=== PATIENT | female | born 1950 | race Caucasian/White ===

== ENCOUNTER 2020-07-22 07:20 | Outpatient (REF) | payer BC, SELFPAY ==
[2020-07-22 10:28] LABS: MANUAL DIFF FLAG NO
[2020-07-22 10:31] LABS: Basophils Percent Auto 0.9 % (0-2); Eosinophils Absolute Auto 0.1 X10*3/uL (0.0-0.4); Eosinophils Percent Auto 1.4 % (0-4); Hematocrit 39.1 % (37-47); Hemoglobin 12.5 g/dl (12.0-16.0); Lymphocytes Absolute Auto 1.4 X10*3/uL (1.2-4.9); Mean Corpuscular Hemoglobin 30.1 pg (27.0-33.0); Mean Corpuscular Volume 94.2 fL (80-98); Mean Platelet Volume 11.1 fL (9.4-12.3); Monocytes Absolute Auto 0.3 X10*3/uL (0.1-1.2); Monocytes Percent Auto 6.9 % (2-11); Neutrophils Absolute Auto 2.5 X10*3/uL (2.0-8.3); Neutrophils Percent Auto 57.8 % (45-73); Platelet Count 147 X10*3/uL (160-400); Red Blood Count 4.15 X10*6/uL (4.20-5.50); Red Cell Distribution Width 13.1 % (11.0-16.0); White Blood Count 4.4 X10*3/uL (4.8-10.8)
[2020-07-22 10:54] LABS: Appearance Urine CLEAR; Color Urine YELLOW; Glucose Urine UA NEG (NEG); Leukocyte Esterase Urine 1+ (NEG); Nitrite Urine NEG (NEG); Urine Blood TRACE (NEG); Urine Ketones NEG (NEG); Urine Protein NEG (NEG-TRACE)
[2020-07-22 11:01] LABS: Mucus Urine 1+ /LPF; Squamous Epithelial Cell Urine 1+ /LPF
[2020-07-22 11:22] LABS: Alanine Aminotransferase 14 U/L (0-31); Albumin Level 4.5 g/dL (3.5-5.0); Alkaline Phosphatase 91 U/L (39-117); Anion Gap 8 (12-20); Aspartate Amino Transferase 18 U/L (5-31); Bilirubin Total 0.5 mg/dL (0.0-1.0); Blood Urea Nitrogen 21 mg/dL (9-16); Calcium 9.3 mg/dL (8.4-10.2); Carbon Dioxide 30 mmol/L (22-29); Chloride 108 mmol/L (96-108); Cholesterol 197 mg/dL; Estimated Glomerular Filt Rate 58; Glucose Fasting 92 mg/dL (60-99); HDL Cholesterol 68 mg/dL; LDL Cholesterol Calculated 114 mg/dl; Potassium 4.4 mmol/l (3.3-5.1); Sodium 142 mmol/L (135-145); Total Protein 6.7 g/dL (6.5-8.0); Triglycerides 75 mg/dL
[2020-07-22 11:45] LABS: Thyroid Stimulating Hormone 0.94 mIU/mL (0.32-4.0); Vitamin D 25-OH Total 46.4 ng/mL (>30)
[2020-07-22 11:48] LABS: Vitamin B12 > 2000 pg/mL (200-900)
== END 2020-07-22 07:21 | disposition home or self-care (01) ==
LOC: HO.WFDLDS 07:20
PROVIDERS: PCP Internal Medicine; Visit Provider Internal Medicine
DX: E78.00 Pure hypercholesterolemia, unspecified (principal); D69.6 Thrombocytopenia, unspecified
CPT/HCPCS: 36415; 80053; 80061; 81001; 82306; 82607; 82746; 84436; 84443; 85025

== ENCOUNTER 2021-07-17 07:01 | Outpatient (REF) | payer MEDICARE, SELFPAY ==
[2021-07-17 10:34] LABS: MANUAL DIFF FLAG NO
[2021-07-17 10:44] LABS: Basophils Percent Auto 0.7 % (0-2); Eosinophils Absolute Auto 0.1 X10*3/uL (0.0-0.4); Eosinophils Percent Auto 2.2 % (0-4); Hematocrit 39.3 % (37-47); Hemoglobin 12.5 g/dl (12.0-16.0); Imm Gran Abs Auto 0.01 X10*3/uL (0.00-0.03); Imm Gran Pct Auto 0.2 % (0.0-0.4); Lymphocytes Absolute Auto 1.3 X10*3/uL (1.2-4.9); Lymphocytes Percent Auto 28.2 % (20-40); Mean Corpuscular HGB Conc 31.8 g/dl (31.0-35.0); Mean Corpuscular Hemoglobin 29.7 pg (27.0-33.0); Mean Corpuscular Volume 93.3 fL (80-98); Mean Platelet Volume 10.7 fL (9.4-12.3); Monocytes Absolute Auto 0.4 X10*3/uL (0.1-1.2); Monocytes Percent Auto 8.5 % (2-11); Neutrophils Absolute Auto 2.8 X10*3/uL (2.0-8.3); Neutrophils Percent Auto 60.2 % (45-73); Platelet Count 162 X10*3/uL (160-400); Red Blood Count 4.21 X10*6/uL (4.20-5.50); Red Cell Distribution Width 13.1 % (11.0-16.0); White Blood Count 4.6 X10*3/uL (4.8-10.8)
[2021-07-17 10:58] LABS: Alanine Aminotransferase 13 U/L (0-31); Albumin Level 4.4 g/dL (3.5-5.0); Alkaline Phosphatase 88 U/L (39-117); Anion Gap 12 (12-20); Aspartate Amino Transferase 17 U/L (5-31); Bilirubin Total 0.6 mg/dL (0.0-1.0); Blood Urea Nitrogen 15 mg/dL (9-16); Calcium 9.8 mg/dL (8.4-10.2); Carbon Dioxide 28 mmol/L (22-29); Chloride 108 mmol/L (96-108); Cholesterol 201 mg/dL; Estimated Glomerular Filt Rate > 60; Glucose Random 93 mg/dL (60-115); HDL Cholesterol 77 mg/dL; LDL Cholesterol Calculated 112 mg/dl; Potassium 4.7 mmol/L (3.3-5.1); Sodium 143 mmol/L (135-145); Total Protein 6.7 g/dL (6.5-8.0); Triglycerides 63 mg/dL
[2021-07-17 11:19] LABS: Free T4 (Free Thyroxine) 1.03 ng/dL (0.71-1.85); Thyroid Stimulating Hormone 1.29 uIU/mL (0.32-4.0); Vitamin D 25-OH Total 45.2 ng/mL (>30)
[2021-07-17 11:32] LABS: Folate > 20.0 ng/mL (> or = 4.0); Vitamin B12 1855 pg/mL (200-900)
== END 2021-07-17 07:02 | disposition home or self-care (01) ==
LOC: HO.WFDLDS 07:01
PROVIDERS: Visit Provider Internal Medicine
DX: E78.00 Pure hypercholesterolemia, unspecified (principal)
CPT/HCPCS: 36415; 80053; 80061; 82306; 82607; 82746; 84439; 84443; 85025

== ENCOUNTER 2021-10-28 12:56 | Outpatient (REF) | payer BC, SELFPAY ==
--- NOTE | ~2021-10-28 | MM_ITS ---
EXAMINATION: MM SCREENING DIGITAL BREAST TOMOSYNTHESIS, BILATERAL CLINICAL INFORMATION: Screening. Asymptomatic. The lifetime risk of breast cancer based on the Tyrer-Cuzick Model is 5%. COMPARISON: Mammography: 08/08/2019, 02/11/2017, 01/09/2016 TECHNIQUE: Digital breast tomosynthesis is performed in both the craniocaudal and mediolateral oblique views along with computer-aided detection (CAD). Synthesized 2D images are generated from the tomosynthesis. FINDINGS: The breasts are heterogeneously dense, which may obscure small masses (ACR BI-RADS breast composition Category c). There are no significant masses, abnormal calcifications, or other abnormalities. There is fine fibronodular parenchymal pattern similar to prior studies. No developing density or interval mass or architectural abnormality. The axilla and skin contours are unremarkable. MM/MM tomosynthesis screening BI IMPRESSION: No mammographic evidence of malignancy. ASSESSMENT: BI-RADS 1: Negative RECOMMENDATION: Routine annual mammography screening. This patient's information was entered into a reminder system with a target due date for their next mammogram.
--- NOTE | ~2021-10-28 | MM_ITS ---
EXAMINATION: BONE DENSITOMETRY CLINICAL INDICATION: Screening for osteoporosis. COMPARISON: Previous BD dated 08/08/2019 and baseline BD dated 08/09/2014. TECHNIQUE: Using a [employer] DXA System (software version: 13.1) manufactured by [employer], dual-energy x-ray absorptiometry was performed of the lumbar spine and left hip. The images are of good technical quality. Summary results are attached. FINDINGS: AP SPINE L1-L4: Current: BMD 1.077 g/cm2, Z-score 0.2, T-score -0.9, normal, 1.0% increase from previous, 6.0% increase from baseline (<5% change is not significant). Prior: BMD 1.066 g/cm2. Baseline: BMD 1.016 g/cm2. LEFT FEMUR, NECK: Current: BMD 0.828 g/cm2, Z-score -0.2, T-score -1.5, osteopenia. Prior: BMD 0.757 g/cm2. Baseline: BMD 0.728 g/cm2. LEFT FEMUR, TOTAL: Current: BMD 0.929 g/cm2, Z-score 0.4, T-score -0.6, normal, 7.8% increase from previous, 14.3% increase from baseline (<5% change is not significant). Prior: BMD 0.862 g/cm2. Baseline: BMD 0.813 g/cm2. IDENTIFIED RISK FACTORS: Menopause, height loss, history of fracture (adult), low calcium intake. HISTORY OF FRACTURE: Elbow, ribs. MEDICATIONS: Vitamin D. MM/XR DEXA axial skeleton IMPRESSION: 1. DIAGNOSIS: Osteopenia based on the lowest T-score value of -1.5 in the femoral neck applying World Health Organization criteria. 2. 10-YEAR FRACTURE RISK PREDICTION, FRAX: Major osteoporotic fracture (clinical spine, forearm, hip or shoulder) 15.7%. Hip fracture 2.3%. 3. Treatment Recommendations: NOF guidelines recommend consideration for treatment in postmenopausal women and men age 50 and older presenting with the following: -A hip or vertebral (clinical or morphometric) fracture. -T-score less than or equal to -2.5 at the femoral neck or spine after appropriate evaluation to exclude secondary causes. -Low bone mass at the hip or spine and a 10-year fracture probability by FRAX of greater than or equal to 3% for hip fracture or greater than or equal to 20% for major osteoporotic fracture based on the [place] adapted WHO algorithm. 4. Other Recommendations: All treatment decisions require clinical judgment and consideration of individual patient factors, including patient preferences, comorbidities, previous drug use, risk factors not captured in the FRAX model (e.g. frailty, falls, vitamin D deficiency, increased bone turnover, interval significant decline in bone density) and possible under or overestimation of fracture risk by FRAX. Additional medical evaluation for secondary cause of low bone mineral density may be appropriate. FUTURE SCAN RECOMMENDATION: People with diagnosed cases of osteoporosis or at high risk for fracture should have regular bone mineral density tests. For patients eligible for Medicare, routine testing is allowed once every 2 years. The testing frequency can be increased to one year for patients who have rapidly progressing disease, those who are receiving or discontinuing medical therapy to restore bone mass, or have additional risk factors.
== END 2021-10-28 12:57 | disposition home or self-care (01) ==
LOC: HO.MAMMO 12:56
PROVIDERS: PCP Internal Medicine; Visit Provider Nurse Practitioner Family
DX: Z12.31 Encounter for screening mammogram for malignant neoplasm of breast (principal); Z13.820 Encounter for screening for osteoporosis; M85.80 Other specified disorders of bone density and structure, unspecified site; Z78.0 Asymptomatic menopausal state; Z87.81 Personal history of (healed) traumatic fracture; Z79.899 Other long term (current) drug therapy
CPT/HCPCS: 77063; 77067; 77080

== ENCOUNTER 2021-12-17 13:59 | Outpatient (REF) | payer BC, SELFPAY ==
--- NOTE | ~2021-12-17 | XR_ITS ---
EXAMINATION: XR KNEE, RIGHT CLINICAL INFORMATION: Right knee pain COMPARISON: None TECHNIQUE: Four views of the right knee. FINDINGS: There is no evidence of acute fracture or dislocation of the left knee there is noted to be prominent spurring about the patellofemoral joint with probable narrowing of the joint to some degree. There is a small right knee effusion. The medial and lateral joint space compartments are maintained with some marginal spurring about the medial joint space compartment. XR/XR knee RT 4V IMPRESSION: No acute fracture or dislocation of the right knee. Patellofemoral joint degenerative change with right knee effusion.
== END 2021-12-17 14:00 | disposition home or self-care (01) ==
LOC: HO.HMGCX 13:59
PROVIDERS: Visit Provider Internal Medicine
DX: M25.561 Pain in right knee (principal)
CPT/HCPCS: 73564

== ENCOUNTER 2021-12-25 09:37 | Outpatient (REF) | payer BC, SELFPAY ==
--- NOTE | ~2021-12-25 | XR_ITS ---
EXAMINATION: RIGHT KNEE 2 VIEWS. BILATERAL STANDING KNEE. CLINICAL INFORMATION: This is a 71-year-old female with right knee pain. COMPARISON: Comparison is made to a previous study dated 12/17/2021. TECHNIQUE: 2 views of the right knee are provided for evaluation. A standing bilateral views also provided. FINDINGS: Serpiginous soft tissue densities are noted within the subcutaneous tissues which likely represents varicose veins. There is joint space narrowing, subchondral sclerosis and osteophyte formation involving the medial femoral-tibial joint space, patellofemoral joint, tibiofibular joint. Again noted is a small right knee effusion. Osteoarthritic changes are noted in the medial femoral-tibial joint space on the left. XR/XR knee standing BI IMPRESSION: 1. There is tricompartmental mild osteoarthritic change with a small suprapatellar joint effusion within the right knee.
--- NOTE | ~2021-12-25 | XR_ITS ---
EXAMINATION: RIGHT KNEE 2 VIEWS. BILATERAL STANDING KNEE. CLINICAL INFORMATION: This is a 71-year-old female with right knee pain. COMPARISON: Comparison is made to a previous study dated 12/17/2021. TECHNIQUE: 2 views of the right knee are provided for evaluation. A standing bilateral views also provided. FINDINGS: Serpiginous soft tissue densities are noted within the subcutaneous tissues which likely represents varicose veins. There is joint space narrowing, subchondral sclerosis and osteophyte formation involving the medial femoral-tibial joint space, patellofemoral joint, tibiofibular joint. Again noted is a small right knee effusion. Osteoarthritic changes are noted in the medial femoral-tibial joint space on the left. XR/XR knee RT 2V IMPRESSION: 1. There is tricompartmental mild osteoarthritic change with a small suprapatellar joint effusion within the right knee.
== END 2021-12-25 09:38 | disposition home or self-care (01) ==
LOC: HO.HOSX 09:37
PROVIDERS: Visit Provider Orthopaedic Surgery
DX: M17.11 Unilateral primary osteoarthritis, right knee (principal)
CPT/HCPCS: 20610; 73560; 73565; J1100

== ENCOUNTER → 2022-04-01 13:29 | Outpatient (BNVA) | payer BC, SELFPAY | PROVIDERS: PCP Internal Medicine; Visit Provider Orthopaedic Surgery | DX: M17.11 Unilateral primary osteoarthritis, right knee (principal) | CPT/HCPCS: 20610; J1100 ==

== ENCOUNTER → 2022-07-02 11:41 | Outpatient (BNVA) | payer BC, SELFPAY | PROVIDERS: PCP Internal Medicine; Visit Provider Orthopaedic Surgery | DX: M17.11 Unilateral primary osteoarthritis, right knee (principal) | CPT/HCPCS: 20610; J1100 ==

== ENCOUNTER 2022-07-27 08:37 | Day surgery (SDC) | payer MEDICARE, SELFPAY ==
[2022-07-22 09:45] VITALS: BMI 27.5
--- NOTE | 2022-07-23 10:23 | P.CONAN_ITS ---
Documented by User: Sofia Dutta NP 07/23/22 10:26 HPI - Anesthesia Eval Consult details Narrative: 72yo F for Colonoscopy PMFSH Active Problems Active Problems: All Active Problems (Updated 06/09/22 @ 11:26 by Renata Morrison MD) Chronic heel pain (Acute) Positive colorectal cancer screening using Cologuard test (Acute) Localized osteoarthritis of right knee (Acute) Osteopenia (Acute) Encounter for Medicare annual wellness exam (Acute ~09/07/21) Hypercholesterolemia (Acute) GERD (gastroesophageal reflux disease) (Acute) Osteoarthritis (Acute) Past Medical History Medical History Collagen vascular disease Colon cancer screening Colonoscopy refused GERD (gastroesophageal reflux disease) Knee pain, right Leukopenia Myxomatous mitral valve Osteoarthritis Plantar fascia syndrome Right hand paresthesia Shingles Thrombocytopenia Ulnar nerve palsy Family History Family History Father Emphysema of lung Diabetes Mother Hypertension CVD (cardiovascular disease) Maternal Grandfather Esophageal cancer Maternal Uncle Esophageal cancer Lung cancer Sister No problems noted. Surgical History Surgical History Deficient knowledge of leg surgery History of appendectomy History of cataract surgery History of thoracotomy History of tonsillectomy History of tubal ligation Hx of colonoscopy Hx of esophagogastroduodenoscopy Social History Social History Housing: House Alcohol intake: current Alcohol intake frequency: holidays/special occasions only Alcohol type: wine Patient Tobacco Use Status: Never used Tobacco e-Cigarette/Vaping Use: Never Used Second Hand Smoke Exposure: No Use of substances other than those prescribed or required for medical reasons: No Are you DNR?: No Advance Directives: No Advance Directives Information Provided: Yes Advance Directives Date on File: 07/22/20 service: No Current occupational status: retired Cognitive needs: No Hearing needs: No Vision needs: No Meds Allergies Allergy/AdvReac Type Severity Reaction Status Date / Time aspirin Allergy Unknown Unknown Verified 07/02/22 11:54 latex Allergy Unknown Unknown Verified 07/02/22 11:54 milk Allergy Unknown Unknown Verified 07/02/22 11:54 Sulfa (Sulfonamide Allergy Unknown Unknown Verified 07/02/22 11:54 Antibiotics) Home Medications Medication Instructions Recorded Confirmed Last Taken Type meclizine 25 mg tablet 25 mg PO DAILY PRN Dizziness 10/07/20 07/27/22 Unknown History omeprazole 20 mg capsule,delayed 20 mg PO DAILY 10/07/20 07/27/22 Unknown History release ascorbic acid (vitamin C) 1,000 mg 1 g PO .other day 08/07/21 07/27/22 Unknown History tablet potassium gluconate 500 mg (83 mg) 500 mg PO .every other day 08/07/21 07/27/22 Unknown History tablet cholecalciferol (vitamin D3) 50 50 mcg PO DAILY 12/08/21 07/27/22 Unknown History mcg (2,000 unit) capsule Exam Exam Date and Time: July 23, 2022 1023 Height,Weight and Vital Signs: Height 5 ft 8 in Weight 82.1 kg Assessment and Plan Assessment Anesthesia Assessment: Chart Reviewed Documented by User: Sunita Barahona MD 07/27/22 08:56 [facility] Past Medical History Medical History Collagen vascular disease Colon cancer screening Colonoscopy refused GERD (gastroesophageal reflux disease) Knee pain, right Leukopenia Myxomatous mitral valve Osteoarthritis Plantar fascia syndrome Right hand paresthesia Shingles Thrombocytopenia Ulnar nerve palsy Functional capacity: independent ambulation Patient : No Family History Family History Father Emphysema of lung Diabetes Mother Hypertension CVD (cardiovascular disease) Maternal Grandfather Esophageal cancer Maternal Uncle Esophageal cancer Lung cancer Sister No problems noted. Family history of problems with anesthesia: No Surgical History Surgical History Deficient knowledge of leg surgery History of appendectomy History of cataract surgery History of thoracotomy History of tonsillectomy History of tubal ligation Hx of colonoscopy Hx of esophagogastroduodenoscopy History of Problems with Anesthesia: No Social History Social History Housing: House Alcohol intake: current Alcohol intake frequency: holidays/special occasions only Alcohol type: wine Patient Tobacco Use Status: Never used Tobacco e-Cigarette/Vaping Use: Never Used Second Hand Smoke Exposure: No Use of substances other than those prescribed or required for medical reasons: No Are you DNR?: No Advance Directives: No Advance Directives Information Provided: Yes Advance Directives Date on File: 07/22/20 service: No Current occupational status: retired Cognitive needs: No Hearing needs: No Vision needs: No Meds Allergies Allergy/AdvReac Type Severity Reaction Status Date / Time aspirin Allergy Unknown Unknown Verified 07/02/22 11:54 latex Allergy Unknown Unknown Verified 07/02/22 11:54 milk Allergy Unknown Unknown Verified 07/02/22 11:54 Sulfa (Sulfonamide Allergy Unknown Unknown Verified 07/02/22 11:54 Antibiotics) Home Medications Medication Instructions Recorded Confirmed Last Taken Type meclizine 25 mg tablet 25 mg PO DAILY PRN Dizziness 10/07/20 07/27/22 Unknown History omeprazole 20 mg capsule,delayed 20 mg PO DAILY 10/07/20 07/27/22 Unknown History release ascorbic acid (vitamin C) 1,000 mg 1 g PO .other day 08/07/21 07/27/22 Unknown History tablet potassium gluconate 500 mg (83 mg) 500 mg PO .every other day 08/07/21 07/27/22 Unknown History tablet cholecalciferol (vitamin D3) 50 50 mcg PO DAILY 12/08/21 07/27/22 Unknown History mcg (2,000 unit) capsule Exam Airway Mallampati Class: II TM Dist: >3cm Neck ROM: Full Heart: RRR Lungs: CTA Assessment and Plan Final Anesthetic Review Family History of Problems with Anesthesia: No History of Problems with Anesthesia: No ASA Class: II Final Preanesthetic Review: No Changes in Pt Med Stat, Meds/Allgs Chart Reviewed, Consent Obtained/Reviewed and Anes Risks/Benef Reviewed Patient Risk: Low Procedure Risk: Low Anesthetic Plan Anesthetic Plan: MAC: Disposition: Standard PACU
[2022-07-27 08:55] VITALS: BP 145/71; PULSE 71; RESP 15; TEMP 36.6; O2SAT 99
[2022-07-27] MEDS: Lactated Ringers 1,000 ML 100 ML IVCONT (10:13)
--- NOTE | 2022-07-27 10:29 | MHC.SHP ---
Pre-Procedural Eval Section A Date of Service: 07/27/22 Section B Chief Complaint: Other fecal abnormalities Details of Present Illness: see H&P no changes Relevant Family History (Specify if Yes): No Relevant Social History: None Present Medications: see Short Stay Collaborative assessment Medical History: No relevant PMH Allergies: Allergies Allergy/AdvReac Type Severity Reaction Status Date / Time aspirin Allergy Unknown Unknown Verified 07/02/22 11:54 latex Allergy Unknown Unknown Verified 07/02/22 11:54 milk Allergy Unknown Unknown Verified 07/02/22 11:54 Sulfa (Sulfonamide Allergy Unknown Unknown Verified 07/02/22 11:54 Antibiotics) Review of Systems Sugical H&P ROS: Negative: Constitution, Cardiovascular, Respiratory, Neurological, Psychiatric, Hem-Onc, Allergic/Immunologic, Gastrointestinal, Genitourinary, Musculoskeletal, Integumentary, Endocrine and Eyes/Ears/Nose/Throat Exam Surgical H&P Exam: Normal: HEENT, Normal: Heart, Normal: Lungs, Normal: Extremities, Normal: Abdomen, Normal: Skin and Normal: Neurological Plan Diagnosis/Plan: Unchanged I have reviewed the history and physical and performed a pertinent physical examination on my patient. No changes have occurred unless specified.
--- NOTE | 2022-07-27 10:55 | P.BOP_ITS ---
Brief Operative Note Date of Service: 07/27/22 Pre-op diagnosis: abnl findings in stool Post-op diagnosis: same Surgeon: Mukesh Pedersen Anesthesia: MAC Was an Director Of [employer] used for this Procedure?: No Estimated blood loss (mL): 0 Pathology: none sent Condition: stable Disposition: PACU
[2022-07-27 10:56] VITALS: BP 103/50; PULSE 76; RESP 16; TEMP 36.3; O2SAT 97
[2022-07-27 11:11] VITALS: BP 125/71; PULSE 63; RESP 18; O2SAT 97
--- NOTE | 2022-07-27 11:34 | HO.POSTANES ---
Post Anesthesia Evaluation Post Anesthesia Evaluation Vital Signs: Vital Signs Temp Pulse Resp BP Pulse Ox O2 Del Method 07/27/22 11:11 63 18 103/50 L 97 Room Air 07/27/22 10:56 97.3 F 76 16 103/50 L 97 Room Air 07/27/22 08:55 97.9 F 71 15 145/71 H 99 Room Air Anesthesia: Monitored Mental Status: Awake Pain Control: Satisfactory Nausea/Vomiting: None Hydration: Adequate Anesthesia-Related Issues: No Anes. Related Issues
--- NOTE | 2022-07-27 22:50 | OP_ITS ---
SURGEON: Mukesh Pedersen MD INDICATIONS: Abnormal findings in stool. PREOPERATIVE DIAGNOSIS: POSTOPERATIVE DIAGNOSIS: PROCEDURE PERFORMED: Colonoscopy to the terminal ileum. ESTIMATED BLOOD LOSS: COMPLICATIONS: ANESTHESIA: ASSISTANTS: SPECIMENS: MEDICATIONS: Monitored anesthesia care. DESCRIPTION OF PROCEDURE: History and physical was performed. The risks and benefits of the procedure were explained to the patient. Informed consent was obtained. The patient was placed in the left lateral decubitus position. A digital rectal exam was performed and was found to be normal. The Olympus pediatric video colonoscope was introduced into the rectum and advanced to the cecum without difficulty. The cecum was identified by transillumination, palpation, and identification of ileocecal valve. Examination was performed. The scope was removed. She tolerated the procedure well and was taken to recovery room in stable condition. The procedure was performed on 07/27/2022. FINDINGS: The terminal ileum was normal. The visualized colonic mucosa was normal. The quality of the prep was good. No polyps were identified. There were some moderately large internal hemorrhoids on retroflexed examination. IMPRESSION: Normal colonoscopy. RECOMMENDATION: 1. Follow up as needed. 2. Screening colonoscopy is not recommended based on age. MD MERLE Aguirre/MARGIE / [id number]
== END 2022-07-27 11:47 | disposition home or self-care (01) ==
PROVIDERS: PCP Internal Medicine; Visit Provider Internal Medicine Gastroenterology
PROC: 0DJD8ZZ Inspection of Lower Intestinal Tract, Via Natural or Artificial Opening Endoscopic (ICD-10-PCS; CPT 45378; principal; 2022-07-27 09:50)
DX: R19.5 Other fecal abnormalities (principal); K64.8 Other hemorrhoids; K58.1 Irritable bowel syndrome with constipation; K21.9 Gastro-esophageal reflux disease without esophagitis; J30.2 Other seasonal allergic rhinitis; R42 Dizziness and giddiness; M85.80 Other specified disorders of bone density and structure, unspecified site; Z79.899 Other long term (current) drug therapy; Z79.82 Long term (current) use of aspirin; Z79.1 Long term (current) use of non-steroidal anti-inflammatories (NSAID); Z91.040 Latex allergy status; Z88.2 Allergy status to sulfonamides
CPT/HCPCS: 45378

== ENCOUNTER 2022-09-28 08:21 | Outpatient (REF) | payer MEDICARE, SELFPAY ==
[2022-09-28 12:25] LABS: Leukocytes Stool Qualitative FEW: < 2/OIF (NEGATIVE)
[2022-09-28 13:01] LABS: CDiff Gene PCR NEGATIVE (Negative)
== END 2022-09-28 08:22 | disposition home or self-care (01) ==
LOC: HO.WFDLNP 08:21
PROVIDERS: Visit Provider Nurse Practitioner Family
DX: R19.7 Diarrhea, unspecified (principal)
CPT/HCPCS: 87177; 87209; 87493; 89055

== ENCOUNTER → 2022-10-01 11:27 | Outpatient (BNVA) | payer MEDICARE, SELFPAY | PROVIDERS: Visit Provider Orthopaedic Surgery | DX: M17.11 Unilateral primary osteoarthritis, right knee (principal) | CPT/HCPCS: 20610; 99212; J1100 ==

== ENCOUNTER 2022-11-24 08:00 | Outpatient (REF) | payer MEDICARE, SELFPAY ==
[2022-11-24 10:57] LABS: MANUAL DIFF FLAG NO
[2022-11-24 11:09] LABS: Basophils Percent Auto 0.9 % (0-2); Eosinophils Absolute Auto 0.1 X10*3/uL (0.0-0.4); Eosinophils Percent Auto 1.1 % (0-4); Hemoglobin 12.2 g/dl (12.0-16.0); Imm Gran Abs Auto 0.03 X10*3/uL (0.00-0.03); Imm Gran Pct Auto 0.7 % (0.0-0.4); Lymphocytes Absolute Auto 1.2 X10*3/uL (1.2-4.9); Lymphocytes Percent Auto 27.4 % (20-40); Mean Corpuscular HGB Conc 32.1 g/dl (31.0-35.0); Mean Corpuscular Hemoglobin 29.1 pg (27.0-33.0); Mean Corpuscular Volume 90.7 fL (80.0-98.0); Mean Platelet Volume 11.1 fL (9.4-12.3); Monocytes Absolute Auto 0.3 X10*3/uL (0.1-1.2); Monocytes Percent Auto 7.5 % (2-11); Neutrophils Absolute Auto 2.7 x10*3/uL (2.0-8.3); Neutrophils Percent Auto 62.4 % (45-73); Platelet Count 131 X10*3/uL (160-400); Red Blood Count 4.19 X10*6/uL (4.20-5.50); Red Cell Distribution Width 13.2 % (11.0-16.0); White Blood Count 4.4 X10*3/uL (4.8-10.8)
[2022-11-24 12:09] LABS: Alanine Aminotransferase 9 U/L (0-31); Albumin Level 4.2 g/dL (3.5-5.0); Alkaline Phosphatase 88 U/L (39-117); Anion Gap 15 (12-20); Aspartate Amino Transferase 16 U/L (5-31); Blood Urea Nitrogen 23 mg/dL (9-16); Calcium 9.8 mg/dL (8.4-10.2); Carbon Dioxide 25 mmol/L (22-29); Chloride 109 mmol/L (96-108); Cholesterol 179 mg/dL; Estimated Glomerular Filt Rate > 60; Glucose Random 81 mg/dL (60-115); HDL Cholesterol 66 mg/dL; LDL Cholesterol Calculated 99 mg/dl; Potassium 4.4 mmol/L (3.3-5.1); Sodium 145 mmol/L (135-145); Total Protein 6.3 g/dL (6.5-8.0); Triglycerides 74 mg/dL
[2022-11-24 13:00] LABS: Folate 9.2 ng/mL (> or = 4.0); Thyroid Stimulating Hormone 1.16 uIU/mL (0.32-4.0); Vitamin B12 474 pg/mL (200-900); Vitamin D 25-OH Total 44.8 ng/mL (>30)
[2022-11-24 14:31] LABS: Bilirubin Total 0.5 mg/dL (0.0-1.0)
== END 2022-11-24 08:01 | disposition home or self-care (01) ==
LOC: HO.WFDLDS 08:00
PROVIDERS: Visit Provider Internal Medicine
DX: E78.00 Pure hypercholesterolemia, unspecified (principal)
CPT/HCPCS: 36415; 80048; 80053; 80061; 82306; 82607; 82746; 84439; 84443; 85025

== ENCOUNTER 2022-11-25 16:48 | Outpatient (REF) | payer MEDICARE, SELFPAY | END 2022-11-25 16:49 | disposition home or self-care (01) | LOC: HO.LAB 16:48 | PROVIDERS: PCP Internal Medicine; Visit Provider Internal Medicine Gastroenterology | DX: Z13.89 Encounter for screening for other disorder (principal) ==

== ENCOUNTER 2022-11-28 14:30 | Outpatient (REF) | payer MEDICARE, SELFPAY | END 2022-11-28 14:31 | disposition home or self-care (01) | LOC: HO.LNP 14:30 | PROVIDERS: Visit Provider Internal Medicine Gastroenterology | DX: Z13.89 Encounter for screening for other disorder (principal) ==

== ENCOUNTER 2022-12-02 12:19 | Outpatient (REF) | payer MEDICARE, SELFPAY ==
[2022-12-02 14:36] LABS: Adenovirus F 40/41 Not Detected (Not Detect.); Astrovirus Not Detected (Not Detect.); Campylobacter Not Detected (Not Detect.); Cryptosporidium Not Detected (Not Detect.); Cyclospora cayetanensis Not Detected (Not Detect.); E. coli EAEC Not Detected (Not Detect.); E. coli EPEC Not Detected (Not Detect.); E. coli ETEC Not Detected (Not Detect.); E. coli STEC Not Detected (Not Detect.); Entamoeba histolytica Not Detected (Not Detect.); Giardia lamblia Not Detected (Not Detect.); Norovirus GI/GII Not Detected (Not Detect.); Plesiomonas shigelloides Not Detected (Not Detect.); Rotavirus A Not Detected (Not Detect.); Salmonella Not Detected (Not Detect.); Sapovirus Not Detected (Not Detect.); Shigella sp./EIEC Not Detected (Not Detect.); Vibrio Not Detected (Not Detect.); Vibrio Cholerae Not Detected (Not Detect.); Yersinia enterocolitica Not Detected (Not Detect.)
== END 2022-12-02 12:20 | disposition home or self-care (01) ==
LOC: HO.LNP 12:19
PROVIDERS: Visit Provider Internal Medicine Gastroenterology
DX: R19.5 Other fecal abnormalities (principal); R19.7 Diarrhea, unspecified
CPT/HCPCS: 87507

== ENCOUNTER → 2023-04-07 13:29 | Outpatient (BNVA) | payer MEDICARE, SELFPAY | PROVIDERS: PCP Internal Medicine; Visit Provider Orthopaedic Surgery | DX: M17.11 Unilateral primary osteoarthritis, right knee (principal) | CPT/HCPCS: 20610; 99212; J1100 ==

== ENCOUNTER 2023-06-16 15:32 | Outpatient (AMB) | payer MEDICARE, SELFPAY ==
[2023-06-16 15:38] VITALS: BP 138/60; PULSE 60; O2SAT 99; BMI 28.3
--- NOTE | 2023-06-16 15:38 | A.OFFPC_ITS ---
Vital Signs 06/16/23 15:38 Height 5 ft 8 in Weight 186 lb 4 oz BMI 28.3 BP 138/60 Blood Pressure Location Lt brachial Position Sitting Pulse 60 Pulse Source Pulse Oximeter Pulse Oximetry (%) 99 Oxygen Delivery Method Room Air Intake Visit Reasons: 6mth f/u ( meds ) Allergies aspirin Allergy (Unknown, Verified 06/16/23 15:42) Unknown latex Allergy (Unknown, Verified 06/16/23 15:42) Unknown milk Allergy (Unknown, Verified 06/16/23 15:42) Unknown Sulfa (Sulfonamide Antibiotics) Allergy (Unknown, Verified 06/16/23 15:42) Unknown Medication List - Last Reconciled 06/16/23 by Renata Morrison MD ascorbic acid (vitamin C) 1 g PO .other day celecoxib 200 mg PO DAILY cholecalciferol (vitamin D3) 50 mcg PO DAILY loperamide (Imodium A-D) 2 mg PO BID PRN loperamide (Imodium A-D) 2 mg PO Q6H PRN magnesium 200 mg PO DAILY meclizine 25 mg PO DAILY PRN omega-3 fatty acids 1,000 mg PO .Qw omeprazole 20 mg PO DAILY potassium gluconate 500 mg PO .every other day Tobacco use date assessed: 12/07/22 Fall risk assessment: 2 + Falls in past year Last assessed Fall Risk: 06/16/23 Dental Screening Dental Screen Date: 06/16/23 Did you have a dental visit in the last 12 months?: Yes Did you have a dental problem in the last 6 months where you did not have access to dental care?: No Was dental information given to patient?: Patient has dentist HPI 6mth f/u ( meds ) HPI Details 73-year-old overweight female with GERD hypercholesterolemia osteopenia right knee osteoarthritis peripheral vascular disease and irritable bowel syndrome last seen in November 2022 patient is here for follow-up. Patient had a positive Cologuard March 2022. With the are right knee osteoarthritis patient has seen orthopedics and had injection.hx of electrocution - was changing time on a chair - fall . 2nd time already PFSH Medical History (Updated 06/16/23 @ 16:35 by Renata Morrison MD) Collagen vascular disease Colon cancer screening Colonoscopy refused GERD (gastroesophageal reflux disease) Knee pain, right Leukopenia Myxomatous mitral valve Osteoarthritis Plantar fascia syndrome Positive colorectal cancer screening using Cologuard test Right hand paresthesia Screening for diabetes mellitus Shingles Thrombocytopenia Ulnar nerve palsy Surgical History Deficient knowledge of leg surgery History of appendectomy History of cataract surgery History of thoracotomy History of tonsillectomy History of tubal ligation Hx of colonoscopy Hx of esophagogastroduodenoscopy Family History Father Emphysema of lung Diabetes Mother Hypertension CVD (cardiovascular disease) Maternal Grandfather Esophageal cancer Maternal Uncle Esophageal cancer Lung cancer Sister No problems noted. Social History (Updated 06/16/23 @ 16:32 by Renata Morrison MD) Housing: House Alcohol intake: current Alcohol intake frequency: holidays/special occasions only Alcohol type: wine Patient Tobacco Use Status: Never used Tobacco e-Cigarette/Vaping Use: Never Used Second Hand Smoke Exposure: No Advance Directives Date on File: 07/22/20 service: No Current occupational status: retired Cognitive needs: No Hearing needs: No Vision needs: No Questionnaire PHQ-9 Over the last 2 weeks, how often have you been bothered by any of the following problems? 1. Little interest or pleasure in doing things: not at all 2. Feeling down, depressed, or hopeless: not at all 3. Trouble falling or staying asleep, or sleeping too much: not at all 4. Feeling tired or having little energy: not at all 5. Poor appetite or overeating: not at all 6. Feeling bad about yourself - or that you are a failure or have let yourself or your family down: not at all 7. Trouble concentrating on things, such as reading the newspaper or watching television: not at all 8. Moving or speaking so slowly that other people could have noticed. Or the opposite - being so fidgety or restless that you have been moving around a lot more than usual: not at all 9. Thoughts that you would be better off or of hurting yourself in some way: not at all Total score: 0 Depression Screening Interpretation: Negative 62243 - PHQ-9 Billing: Yes Source: Developed by Drs. David Velez, Alfreda Torres, Fortino Patel and colleagues, with an educational deja from [employer]. Thrive Questionnaire Date Thrive assessed: 12/07/22 AUDIT C Alcohol Use Questionnaire (AUDIT-C) 1. How often do you have a drink containing alcohol?: Monthly or less 2. How many drinks containing alcohol do you have on a typical day when you are drinking?: 1 or 2 3. How often do you have six or more drinks on one occasion?: Never Total Score: 1 Score Reviewed/Action Taken: No ISRAEL-7 AMB Questionnaire ISRAEL-7 Date ISRAEL - 7 assessed: 12/07/22 Source: Developed by Drs. David Velez, Alfreda Torres, Fortino Patel and colleagues, with an educational deja from [employer]. Physical exam (Primary Care) Vital Signs: Last Vital Signs Pulse 60 06/16/23 15:38 BP 138/60 06/16/23 15:38 Pulse Ox 99 06/16/23 15:38 Oxygen Delivery Method Room Air 06/16/23 15:38 BMI result Body Mass Index 28.3 Tobacco/Smoking Status: Tobacco use Status Tobacco use date assessed 12/07/22 06/16/23 15:46 Patient Tobacco Use Status Never used Tobacco 06/16/23 16:32 e-Cigarette/Vaping Use Never Used 06/16/23 16:32 PHQ-9: PHQ-9 Score PHQ-9: Total score 0 06/16/23 16:22 Depression Screening Interpretation: Negative Thrive Assessment: Date of Thrive Assessment Date Thrive assessed 12/07/22 06/16/23 15:46 Const General: alert; No acute distress Eyes Conjunctivae: conjunctivae normal Resp Auscultation: clear to auscultation bilaterally Cardio Rate: regular rate Rhythm: regular rhythm GI Inspection: Yes normal to inspection Extrem General: Yes normal to inspection and No edema Immunizations tetanus-diphtheria toxoids-Td Performing Provider: Renata Morrison MD Administered by: KRANTHI Harman on 06/16/23 16:49 Dose Route Admin Location Lot Number Expiration Date [facility] 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 0.5 mL IM Left Deltoid [id number] 02/20/24 [address]-1 [employer] VIS Given Date VIS Provided VIS Publication Date 06/16/23 Single Vaccine 21 Eligibility Eligibility Date Funding Source [facility] Eligible-Medicaid 06/16/23 [facility] funds Assessment and Plan Assessment & Plan (1) Breast cancer screening by mammogram: Code(s): Z12.31 - Encounter for screening mammogram for malignant neoplasm of breast Plan: Reminded patient about the mammogram (2) Localized osteoarthritis of right knee: Code(s): M17.11 - Unilateral primary osteoarthritis, right knee Plan: Patient has seen orthopedics and had injection done March 2023 (3) Hypercholesterolemia: Code(s): E78.00 - Pure hypercholesterolemia, unspecified Plan: Avoid fried foods, chicken skin, eggs, butter margarine, pastries and meat. Be it pork or beef they have a lot of cholesterol LDL goal of less than 130 and triglyceride of less than 150 last blood work November 2022 good (4) GERD (gastroesophageal reflux disease): Code(s): K21.9 - Gastro-esophageal reflux disease without esophagitis Qualifiers: Esophagitis presence: without esophagitis Qualified Code(s): K21.9 - G kylee-esophageal reflux disease without esophagitis Plan: Avoid the foods that causes that usually spicy foods, tomato products, juices, coffee, soda and foods that your sensitive to. After eating do not lie down, allow 3-4 hours before in lie down. And keep the head of bed above 30 degrees to avoid the acid from going up. On omeprazole (5) Ulnar nerve external compression syndrome: Comment: 2013 NCV RIGHT Code(s): G56.20 - Lesion of ulnar nerve, unspecified upper limb Orders: Orders MM tomosynthesis screening BI Today Z12.31 - Encounter for screening mammogram for malignant neoplasm of breast Vitamin B12 and Folate 3 Months E78.00 - Pure hypercholesterolemia, unspecified Comprehensive Met. Panel 3 Months E78.00 - Pure hypercholesterolemia, unspecified Lipid Panel 3 Months E78.00 - Pure hypercholesterolemia, unspecified Free T4 (Free Thyroxine) Today E78.00 - Pure hypercholesterolemia, unspecified Thyroid Stimulating Hormone 3 Months E78.00 - Pure hypercholesterolemia, unspec ified Complete Blood Count Auto Diff 3 Months E78.00 - Pure hypercholesterolemia, unspecified Vitamin D 25-OH Total Today E78.00 - Pure hypercholesterolemia, unspecified Td State Immunization Today Z23 - Encounter for immunization Medications: Discontinued loperamide (Imodium A-D) Discontinued Reason: Change Referral Type 2 mg PO BID PRN loperamide (Imodium A-D) Discontinued Reason: Change Referral Type 2 mg PO Q6H PRN Coding Level of Care Code Est Pt Level 4 (66115) Diagnoses Breast cancer screening by mammogram Z12.31 Localized osteoarthritis of right knee M17.11 Hypercholesterolemia E78.00 GERD (gastroesophageal reflux disease) K21.9 Esophagitis presence: without esophagitis Ulnar nerve external compression syndrome G56.20
== END 2023-06-16 16:48 | disposition home or self-care (01) ==
PROVIDERS: PCP Internal Medicine; Visit Provider Internal Medicine
DX: Z12.31 Encounter for screening mammogram for malignant neoplasm of breast (principal); M17.11 Unilateral primary osteoarthritis, right knee; E78.00 Pure hypercholesterolemia, unspecified; K21.9 Gastro-esophageal reflux disease without esophagitis; G56.20 Lesion of ulnar nerve, unspecified upper limb; Z23 Encounter for immunization
CPT/HCPCS: 90471; 90714; 99214

== ENCOUNTER 2023-07-18 13:12 | Outpatient (AMB) | payer MEDICARE, SELFPAY ==
--- NOTE | 2023-07-18 13:19 | MHC.OFFVIS ---
Intake Intake Visit Reasons: Ov - Right Knee OA Last Injection 04/07/23 Allergies aspirin Allergy (Unknown, Verified 06/16/23 15:42) Unknown latex Allergy (Unknown, Verified 06/16/23 15:42) Unknown milk Allergy (Unknown, Verified 06/16/23 15:42) Unknown Sulfa (Sulfonamide Antibiotics) Allergy (Unknown, Verified 06/16/23 15:42) Unknown HPI Ov - Right Knee OA Last Injection 04/07/23 HPI Details Natalia is a 73 year old woman with right knee OA, and a Hx of good relief from steroid injections. Her last injection was on 04/07/23, and she would like a repeat injection today. COUNT INCLUDES THE [facility] Medical History (Updated 06/16/23 @ 16:35 by Renata Morrison MD) Screening for diabetes mellitus Positive colorectal cancer screening using Cologuard test Colon cancer screening Knee pain, right Plantar fascia syndrome Colonoscopy refused Right hand paresthesia Shingles Collagen vascular disease Myxomatous mitral valve Ulnar nerve palsy Leukopenia GERD (gastroesophageal reflux disease) Thrombocytopenia Osteoarthritis Surgical History Hx of esophagogastroduodenoscopy Hx of colonoscopy Deficient knowledge of leg surgery History of thoracotomy History of cataract surgery History of tubal ligation History of tonsillectomy History of appendectomy Family History Father Emphysema of lung Diabetes Mother Hypertension CVD (cardiovascular disease) Maternal Grandfather Esophageal cancer Maternal Uncle Esophageal cancer Lung cancer Sister No problems noted. Social History (Updated 06/16/23 @ 16:32 by Renata Morrison MD) Housing: House Alcohol intake: current Alcohol intake frequency: holidays/special occasions only Alcohol type: wine Patient Tobacco Use Status: Never used Tobacco e-Cigarette/Vaping Use: Never Used Second Hand Smoke Exposure: No Advance Directives Date on File: 07/22/20 service: No Current occupational status: retired Cognitive needs: No Hearing needs: No Vision needs: No Review of Systems Const All systems reviewed & are unremarkable except as noted in HPI and below Physical Exam Const General: no acute distress and alert Orientation/consciousness: patient oriented x3 HEENT Head: Yes normocephalic and Yes atraumatic Eyes EOM: EOMs intact bilaterally Resp Effort & Inspection: normal respiratory effort and able to speak in complete sentences Cardio Jugular venous distension: no JVD Skin General skin exam: turgor normal Rashes: no rashes Neuro General: patient oriented x3 Extrem Other: Right Knee: No effusion Medial TTP Psych Appearance: grossly normal Affect: normal affect Attitude: cooperative Office Procedures Joint Injection/Drain Joint Injection/Drain Details: Injected 1 mL of Decadron and 3 mL 1% lidocaine and 3 mL of 0.25% Marcaine. Site was prepped using aseptic technique. Patient tolerated the procedure well. Primary Site: right knee Approach Used: anterolateral Coding - Large joint Procedure code (CPT) selection complete Results Reviewed Results Reviewed: 07/18/23 13:12 BUPivacaine MPF 0.25 % [Sensorcaine-MPF 0.25% 10 ML] 10 ml .ROUTE .STK-MED ONE Lidocaine HCl 2 % MPF [Xylocaine 2 % MPF] 5 ml .ROUTE .STK-MED ONE dexAMETHasone sod phosphate [Decadron] 4 mg .ROUTE .STK-MED ONE Assessment & Plan Assessment & Plan (1) Localized osteoarthritis of right knee: Code(s): M17.11 - Unilateral primary osteoarthritis, right knee Plan: This is a 72 year old woman with right knee OA, primarily of the anterior compartment. She has pain with daily activity, and finds it especially difficult to stand from a seated position without aid. She had good relief from steroid injections in the past, her last injection was on 04/07/23. I injected her right knee today, which she tolerated well. She can follow up prn. Plan Scribed for Bull Wray MD by Se Grace, bio medical technician, on 07/18/23 at 1:30 PM, EST. Coding Level of Care Code Est Pt Level 3 (19722) Diagnoses Localized osteoarthritis of right knee M17.11 CPT Codes Coding - Large joint: 41847 - Large joint ([id number])
== END 2023-07-18 13:49 | disposition home or self-care (01) ==
PROVIDERS: PCP Internal Medicine; Visit Provider Orthopaedic Surgery
DX: M17.11 Unilateral primary osteoarthritis, right knee (principal)
CPT/HCPCS: 20610

== ENCOUNTER → 2023-07-18 13:12 | Outpatient (BNVA) | payer MEDICARE, SELFPAY | PROVIDERS: PCP Internal Medicine; Visit Provider Orthopaedic Surgery | DX: M17.11 Unilateral primary osteoarthritis, right knee (principal) | CPT/HCPCS: 20610; J1100 ==

== ENCOUNTER 2023-07-19 11:30 | Outpatient (REF) | payer MEDICARE, SELFPAY ==
--- NOTE | ~2023-07-19 | MM_ITS ---
EXAMINATION: MM SCREENING DIGITAL BREAST TOMOSYNTHESIS, BILATERAL CLINICAL INFORMATION: Screening. Asymptomatic. COMPARISON: Mammography: This study is compared with prior exams dating back to 2013. TECHNIQUE: Digital breast tomosynthesis is performed in both the craniocaudal and mediolateral oblique views along with computer-aided detection (CAD). Synthesized 2D images are generated from the tomosynthesis. FINDINGS: The breasts are heterogeneously dense, which may obscure small masses (ACR BI-RADS breast composition Category c). There are no significant masses, abnormal calcifications, or other abnormalities. MM/MM tomosynthesis screening BI IMPRESSION: No mammographic evidence of malignancy. ASSESSMENT: BI-RADS BI-RADS 1 - Negative RECOMMENDATION: Routine annual mammography screening. 1 year F/U This examination should not preclude the clinical evaluation of a suspicious palpable abnormality. This patient's information was entered into a reminder system with a target due date for their next mammogram.
== END 2023-07-19 11:31 | disposition home or self-care (01) ==
LOC: HO.MAMMO 11:30
PROVIDERS: PCP Internal Medicine; Visit Provider Internal Medicine
DX: Z12.31 Encounter for screening mammogram for malignant neoplasm of breast (principal)
CPT/HCPCS: 77063; 77067

== ENCOUNTER → 2023-07-19 11:45 | Outpatient (BNV) | payer MEDICARE, SELFPAY | PROVIDERS: PCP Internal Medicine; Visit Provider Radiology Diagnostic Radiology | DX: Z12.31 Encounter for screening mammogram for malignant neoplasm of breast (principal) | CPT/HCPCS: 77063; 77067 ==

== ENCOUNTER 2023-09-01 15:48 | Outpatient (AMB) | payer MEDICARE, SELFPAY ==
[2023-09-01 16:02] VITALS: BP 158/80; PULSE 60; O2SAT 98; BMI 28.4
--- NOTE | 2023-09-01 16:02 | A.OFFPC_ITS ---
Vital Signs 09/01/23 16:02 Height 5 ft 8 in Weight 187 lb BMI 28.4 BP 158/80 H Blood Pressure Location Lt brachial Position Sitting Pulse 60 Pulse Source Pulse Oximeter Pulse Oximetry (%) 98 Oxygen Delivery Method Room Air Intake Visit Reasons: Right arm pain Behavioral Health Tech: Not Required per policy Accompanied by: Self / Same As Patient Allergies aspirin Allergy (Unknown, Verified 09/01/23 16:02) Unknown latex Allergy (Unknown, Verified 09/01/23 16:02) Unknown milk Allergy (Unknown, Verified 09/01/23 16:02) Unknown Sulfa (Sulfonamide Antibiotics) Allergy (Unknown, Verified 09/01/23 16:02) Unknown Medication List - Last Reconciled 09/01/23 by Renata Morrison MD ascorbic acid (vitamin C) 1 g PO .other day calcium carbonate (Calcium 500) PO celecoxib 200 mg PO DAILY cholecalciferol (vitamin D3) 50 mcg PO DAILY cyclobenzaprine 5 mg PO BEDTIME PRN magnesium 200 mg PO DAILY omega-3 fatty acids 1,000 mg PO .Qw omeprazole 20 mg PO DAILY potassium gluconate 500 mg PO .every other day Tobacco use date assessed: 12/07/22 Fall risk assessment: No Falls in past year Last assessed Fall Risk: 09/01/23 Dental Screening Dental Screen Date: 09/01/23 Did you have a dental visit in the last 12 months?: Yes Did you have a dental problem in the last 6 months where you did not have access to dental care?: No Was dental information given to patient?: Patient has dentist HPI Right arm pain HPI Details 73-year-old overweight female with a his tory of hypercholesterolemia right knee osteoarthritis GERD coming in for follow-up. Last seen in May 2023 patient's colonoscopy is up-to-date mammograms up-to-date bone density is up-to-date. Patient has seen Orthopedics July 2023 has had right knee injection in March 2023 and would like a have a repeat. patient has R arm pain - was electrocuted in youth but was sent to neuro 30 years ago states getting numbness and pain. patient was prescribed gabapentin but patient slept for 19 hours and dizzy and hesitant to go back to this denies any fall or trauma. Patient just started to have that pain starts from the lateral arm area and radiating to hand. Review of the notes has had nerve conduction test done in 2012 but declined wanting to have this test again. [facility] Medical History (Updated 09/01/23 @ 16:52 by Renata Morrison MD) Breast cancer screening by mammogram Screening for diabetes mellitus Positive colorectal cancer screening using Cologuard test Colon cancer screening Knee pain, right Plantar fascia syndrome Colonoscopy refused Right hand paresthesia Shingles Collagen vascular disease Myxomatous mitral valve Ulnar nerve palsy Leukopenia GERD (gastroesophageal reflux disease) Thrombocytopenia Osteoarthritis Surgical History Hx of esophagogastroduodenoscopy Hx of colonoscopy Deficient knowledge of leg surgery History of thoracotomy History of cataract surgery History of tubal ligation History of tonsillectomy History of appendectomy Family History Father Emphysema of lung Diabetes Mother Hypertension CVD (cardiovascular disease) Maternal Grandfather Esophageal cancer Maternal Uncle Esophageal cancer Lung cancer Sister No problems noted. Social History Housing: House Alcohol intake: current Alcohol intake frequency: holidays/special occasions only Alcohol type: wine Patient Tobacco Use Status: Never used Tobacco e-Cigarette/Vaping Use: Never Used Second Hand Smoke Exposure: No Advance Directives Date on File: 07/22/20 service: No Current occupational status: retired Cognitive needs: No Hearing needs: No Vision needs: No Questionnaire PHQ-9 Over the last 2 weeks, how often have you been bothered by any of the following problems? 1. Little interest or pleasure in doing things: not at all 2. Feeling down, depressed, or hopeless: not at all 3. Trouble falling or staying asleep, or sleeping too much: not at all 4. Feeling tired or having little energy: not at all 5. Poor appetite or overeating: not at all 6. Feeling bad about yourself - or that you are a failure or have let yourself or your family down: not at all 7. Trouble concentrating on things, such as reading the newspaper or watching television: not at all 8. Moving or speaking so slowly that other people could have noticed. Or the opposite - being so fidgety or restless that you have been moving around a lot more than usual: not at all 9. Thoughts that you would be better off or of hurting yourself in some way: not at all Total score: 0 Depression Screening Interpretation: Negative Depression Screening Done: Yes 38894 - PHQ-9 Billing: Yes Source: Developed by Drs. David Velez, Alfreda Torres, Fortino Patel and colleagues, with an educational deja from [employer]. Thrive Questionnaire Date Thrive assessed: 12/07/22 AUDIT C Alcohol Use Questionnaire (AUDIT-C) 1. How often do you have a drink containing alcohol?: Monthly or less 2. How many drinks containing alcohol do you have on a typical day when you are drinking?: 1 or 2 3. How often do you have six or more drinks on one occasion?: Never Total Score: 1 Score Reviewed/Action Taken: No ISRAEL-7 AMB Questionnaire ISRAEL-7 Date ISRAEL - 7 assessed: 12/07/22 Source: Developed by Drs. David Velez, Alfreda Torres, Fortino Patel and colleagues, with an educational deja from [employer]. Physical exam (Primary Care) Vital Signs: Last Vital Signs Pulse 60 09/01/23 16:02 BP 158/80 H 09/01/23 16:02 Pulse Ox 98 09/01/23 16:02 Oxygen Delivery Method Room Air 09/01/23 16:02 Next steps: Tender on deep palpation on the lateral arm area but no swelling no redness. BMI result Body Mass Index 28.4 Tobacco/Smoking Status: Tobacco use Status Tobacco use date assessed 12/07/22 09/01/23 16:03 Patient Tobacco Use Status Never used Tobacco 09/01/23 16:03 e-Cigarette/Vaping Use Never Used 09/01/23 16:03 PHQ-9: PHQ-9 Score PHQ-9: Total score 0 09/01/23 16:23 Depression Screening Interpretation: Negative Thrive Assessment: Date of Thrive Assessment Date Thrive assessed 12/07/22 09/01/23 16:03 Const General: alert; No acute distress Eyes Conjunctivae: conjunctivae normal Resp Auscultation: clear to auscultation bilaterally Cardio Rate: regular rate Rhythm: regular rhythm GI Inspection: Yes normal to inspection Extrem General: Yes normal to inspection and No edema Assessment and Plan Assessment & Plan (1) Localized osteoarthritis of right knee: Code(s): M17.11 - Unilateral primary osteoarthritis, right knee Plan: Knee is better after the injection from the Ortho (2) Ulnar nerve external compression syndrome: Comment: 2013 NCV RIGHT Code(s): G56.20 - Lesion of ulnar nerve, unspecified upper limb Plan: Gabapentin was prescribed but did not help and had the side effect of dizziness. (3) Right arm pain: Code(s): M79.601 - Pain in right arm Plan: Gabapentin was prescribed with no relief and felt dizzy. Patient on anti- inflammatory with celecoxib already. Muscle relaxants prescription sent together with celecoxib Medications: New cyclobenzaprine 5 mg PO BEDTIME PRN 30 tabs 0RF muscle spasm G56.20 - Lesion of ulnar nerve, unspecified upper limb Discontinued gabapentin Discontinued Reason: Ancillary Entered New Order 300 mg PO BEDTIME 30 caps 0RF G56.20 - Lesion of ulnar nerve, unspecified upper limb Coding Level of Care Code Est Pt Level 4 (75109) Diagnoses Localized osteoarthritis of right knee M17.11 Ulnar nerve external compression syndrome G56.20 Right arm pain M79.601
== END 2023-09-01 16:54 | disposition home or self-care (01) ==
PROVIDERS: PCP Internal Medicine; Visit Provider Internal Medicine
DX: M17.11 Unilateral primary osteoarthritis, right knee (principal); G56.20 Lesion of ulnar nerve, unspecified upper limb; M79.601 Pain in right arm
CPT/HCPCS: 99214

== ENCOUNTER 2023-09-06 08:27 | Outpatient (REF) | payer MEDICARE, SELFPAY ==
[2023-09-06 11:13] LABS: MANUAL DIFF FLAG NO
[2023-09-06 11:17] LABS: Basophils Percent Auto 0.9 % (0-2); Eosinophils Absolute Auto 0.1 X10*3/uL (0.0-0.4); Eosinophils Percent Auto 2.4 % (0-4); Hematocrit 37.3 % (37.0-47.0); Imm Gran Abs Auto 0.01 X10*3/uL (0.00-0.03); Imm Gran Pct Auto 0.3 % (0.0-0.4); Lymphocytes Percent Auto 28.7 % (20-40); Mean Corpuscular HGB Conc 32.2 g/dl (31.0-35.0); Mean Corpuscular Hemoglobin 29.9 pg (27.0-33.0); Mean Platelet Volume 10.7 fL (9.4-12.3); Monocytes Absolute Auto 0.2 X10*3/uL (0.1-1.2); Monocytes Percent Auto 6.9 % (2-11); Neutrophils Percent Auto 60.8 % (45-73); Platelet Count 137 X10*3/uL (160-400); Red Blood Count 4.01 X10*6/uL (4.20-5.50); Red Cell Distribution Width 12.9 % (11.0-16.0); White Blood Count 3.4 X10*3/uL (4.8-10.8)
[2023-09-06 11:43] LABS: Alanine Aminotransferase 18 U/L (0-31); Albumin Level 4.1 g/dL (3.5-5.0); Alkaline Phosphatase 73 U/L (39-117); Anion Gap 8 (12-20); Aspartate Amino Transferase 22 U/L (5-31); Bilirubin Total 0.4 mg/dL (0.0-1.0); Blood Urea Nitrogen 15 mg/dL (9-16); Carbon Dioxide 30 mmol/L (22-29); Chloride 110 mmol/L (96-108); Cholesterol 188 mg/dL (<200); Estimated Glomerular Filt Rate > 60; Glucose Random 85 mg/dL (60-115); HDL Cholesterol 72 mg/dL (>40); LDL Cholesterol Calculated 104 mg/dL (<100); Potassium 4.5 mmol/L (3.3-5.1); Sodium 143 mmol/L (135-145); Total Protein 6.6 g/dL (6.5-8.0); Triglycerides 61 mg/dL (<150)
[2023-09-06 11:48] LABS: Free T4 (Free Thyroxine) 0.95 ng/dL (0.71-1.85); Thyroid Stimulating Hormone 1.28 uIU/mL (0.32-4.0); Vitamin D 25-OH Total 71.1 ng/mL (>30)
[2023-09-06 12:03] LABS: Folate 9.9 ng/mL (> or = 4.0); Vitamin B12 447 pg/mL (200-900)
== END 2023-09-06 08:28 | disposition home or self-care (01) ==
LOC: HO.WFDLDS 08:27
PROVIDERS: Visit Provider Internal Medicine
DX: E78.00 Pure hypercholesterolemia, unspecified (principal); E55.9 Vitamin D deficiency, unspecified; M85.80 Other specified disorders of bone density and structure, unspecified site
CPT/HCPCS: 36415; 80053; 80061; 82306; 82607; 82746; 84439; 84443; 85025

== ENCOUNTER 2023-09-20 10:53 | Outpatient (AMB) | payer MEDICARE, SELFPAY ==
[2023-09-20 11:01] VITALS: BP 152/90; PULSE 63; O2SAT 99; BMI 28.9
--- NOTE | 2023-09-20 11:02 | AM.OFFVISMDC ---
Intake Vital Signs 09/20/23 11:01 Height 5 ft 8 in Weight 190 lb BMI 28.9 BP 152/90 H Blood Pressure Location Lt brachial Position Sitting Pulse 63 Pulse Source Pulse Oximeter Pulse Oximetry (%) 99 Oxygen Delivery Method Room Air Intake Visit Reasons: SWV G0439 Allergies aspirin Allergy (Unknown, Verified 09/20/23 11:10) Unknown latex Allergy (Unknown, Verified 09/20/23 11:10) Unknown milk Allergy (Unknown, Verified 09/20/23 11:10) Unknown Sulfa (Sulfonamide Antibiotics) Allergy (Unknown, Verified 09/20/23 11:10) Unknown Medication List - Last Reconciled 09/20/23 by YAHAIRA Biggs ascorbic acid (vitamin C) 1 g PO .other day calcium carbonate (Calcium 500) PO celecoxib 200 mg PO DAILY cholecalciferol (vitamin D3) 50 mcg PO DAILY cyclobenzaprine 5 mg PO BEDTIME PRN magnesium 200 mg PO DAILY omega-3 fatty acids 1,000 mg PO .Qw omeprazole 20 mg PO DAILY potassium gluconate 500 mg PO .every other day HPI SWV G0439 HPI Details Patient is a 73-year-old female presents today for subsequent wellness visit. Patient of Dr. Morrison. Patient is up-to-date with her health preventative screenings and immunizations. [place] of care was reviewed with the patient and she was provided with a screening schedule. Patient has healthcare proxy and MOLST forms at home and she will think about them and possibly fill out. [facility] Medical History (Updated 09/20/23 @ 11:29 by YAHAIRA Biggs) Diarrhea Breast cancer screening by mammogram Screening for diabetes mellitus Positive colorectal cancer screening using Cologuard test Colon cancer screening Knee pain, right Plantar fascia syndrome Colonoscopy refused Right hand paresthesia Shingles Collagen vascular disease Myxomatous mitral valve Ulnar nerve palsy Leukopenia GERD (gastroesophageal reflux disease) Thrombocytopenia Osteoarthritis Surgical History Hx of esophagogastroduodenoscopy Hx of colonoscopy Deficient knowledge of leg surgery History of thoracotomy History of cataract surgery History of tubal ligation History of tonsillectomy History of appendectomy Family History Father Emphysema of lung Diabetes Mother Hypertension CVD (cardiovascular disease) Maternal Grandfather Esophageal cancer Maternal Uncle Esophageal cancer Lung cancer Sister No problems noted. Social History Housing: House Alcohol intake: current Alcohol intake frequency: holidays/special occasions only Alcohol type: wine Patient Tobacco Use Status: Never used Tobacco e-Cigarette/Vaping Use: Never Used Second Hand Smoke Exposure: No Advance Directives Date on File: 07/22/20 service: No Current occupational status: retired Cognitive needs: No Hearing needs: No Vision needs: No Questionnaire Medicare Wellness Checkup [age] What gender do you identify with?: female During the past 4 weeks, how much have you been bothered by emotional problems such as feeling anxious, depressed, irritable, sad or downhearted, and blue?: not at all During the past 4 weeks, has your physical & emotional health limited your social activities with family, friends, neighbors, or groups?: slightly During the past 4 weeks, how much bodily pain have you generally had?: moderate pain During the past 4 weeks, was someone available to help you if you needed & wanted help?: yes, as much as I wanted During the past 4 weeks, what was the hardest physical activity you could do for at least 2 minutes?: moderate Can you get to places out of walking distance without help? (For eg., can you travel alone on buses, taxis or drive your car?): Yes Can you go shopping for groceries or clothes without someone's help?: Yes Can you prepare your own meals?: Yes Can you do your housework without help?: Yes Because of any health problems, do you need the help of another person with your personal care needs such as eating, bathing, dressing or getting around the house?: No Can you handle your own money without help?: Yes During the past 4 weeks, how would you rate your health in general?: good During the past 4 weeks how have things been going for you?: pretty well Are you having difficulties driving your car?: no Do you always fasten your seat belt when you are in a car?: yes, usually (pt states always ) During past 4 weeks, have you been bothered by the following: never: Sexual problems?, Trouble eating well?, Teeth or denture problems? and Problems using the telephone? and seldom: Falling or dizzy when standing up and Tiredness or fatigue? Have you fallen 2 or more times in the past year?: Yes Are you afraid of falling?: Yes Are you a smoker?: no During the past 4 weeks, how many drinks of wine, beer, or other alcoholic beverages did you have?: no alcohol at all Do you exercise for about 20 minutes 3 or more times a week?: no, I usually do not exercise this much Have you been given information to help with the following?: no: Hazards in your house that might hurt you? and no: Keeping track of your medications? How often do you have trouble taking medicines the way you have been told to take them?: I always take medicine as prescribed How confident are you that you can control & manage most of your health problems?: very confident What is your race?: White Mini Mental State Exam (MMSE) Orientation What is the (year) (season) (date) (day) (month)?: year, season, date, day and month Score Score: 5 Activity of Daily Living Bathing - sponge bath, tub bath or shower: receives no assistance (gets in/out by self, if usual bathing means Dressing - getting clothes from closets & drawers, including inner/outer garments & fasteners.: gets clothes & gets completely dressed without help Toileting - going to the 'toilet room' for urine/bowel elimination & cleaning self/arranging clothes: goes to toilet room, cleans self, arranges clothes without help Transfer: moves in & out of bed and chair without help (may use support object) Continence: controls urination/bowel movements completely by self Feeding: feeds self without help Total Score: 0 Information obtained from: patient Using telephone: independent Traveling: independent Shopping: independent Preparing meals: independent Housework: independent Taking medicine: independent Managing money: independent PHQ-9 Over the last 2 weeks, how often have you been bothered by any of the following problems? 1. Little interest or pleasure in doing things: not at all 2. Feeling down, depressed, or hopeless: not at all 3. Trouble falling or staying asleep, or sleeping too much: more than half the days 4. Feeling tired or having little energy: several days 5. Poor appetite or overeating: not at all 6. Feeling bad about yourself - or that you are a failure or have let yourself or your family down: not at all 7. Trouble concentrating on things, such as reading the newspaper or watching television: not at all 8. Moving or speaking so slowly that other people could have noticed. Or the opposite - being so fidgety or restless that you have been moving around a lot more than usual: not at all 9. Thoughts that you would be better off or of hurting yourself in some way: not at all Total score: 3 Depression Screening Interpretation: Negative Depression Screening Done: Yes 75688 - PHQ-9 Billing: Yes Source: Developed by Drs. David Velez, Alfreda Torres, Fortino Patel and colleagues, with an educational deja from [employer]. Physical Exam Vital Signs: Last Vital Signs Pulse 63 09/20/23 11:01 BP 152/90 H 09/20/23 11:01 Pulse Ox 99 09/20/23 11:01 Oxygen Delivery Method Room Air 09/20/23 11:01 BMI result Body Mass Index 28.9 Const General: cooperative and no acute distress Orientation/consciousness: patient oriented x3 HEENT Other: Whisper test: pass Neuro Other: Balance: Normal Get up and walk: unable to Romberg: negative Tandem gait: able to General: patient oriented x3 Assessment & Plan Assessment & Plan (1) Encounter for Medicare annual wellness exam: Onset Date: ~09/07/21 Code(s): Z00.00 - Encounter for general adult medical examination without abnormal findings (2) Hypercholesterolemia: Code(s): E78.00 - Pure hypercholesterolemia, unspecified Plan: Low-cholesterol diet (3) GERD (gastroesophageal reflux disease): Code(s): K21.9 - Gastro-esophageal reflux disease without esophagitis Qualifiers: Esophagitis presence: without esophagitis Qualified Code(s): K21.9 - Gastro-esophageal reflux disease without esophagitis Plan: Omeprazole 20 mg daily Avoid GERD trigger foods Do not lay down 2-3 hours after evening meal Plan Keep appointment with PCP as scheduled or follow-up sooner as needed Quality Reporting (2019) Depression/Bipolar (159/160/161/177) PHQ-9: Total score: 3 Coding Level of Care Code Medicare Subsequent (G0439) Diagnoses Encounter for Medicare annual wellness exam Z00.00 Hypercholesterolemia E78.00 Gastroesophageal reflux disease without esophagitis K21.9 Esophagitis presence: without esophagitis CPT Codes Advance Care Planning - Time spent: 1-15 minutes, not on file ([id number]) Advance Care Planning Date of discussion: 09/20/23 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
== END 2023-09-20 11:26 | disposition home or self-care (01) ==
PROVIDERS: Visit Provider Nurse Practitioner Family
DX: Z00.00 Encounter for general adult medical examination without abnormal findings (principal); E78.00 Pure hypercholesterolemia, unspecified; K21.9 Gastro-esophageal reflux disease without esophagitis
CPT/HCPCS: 1124F; G0439

== ENCOUNTER 2023-11-18 12:37 | Outpatient (AMB) | payer MEDICARE, SELFPAY ==
--- NOTE | 2023-11-18 12:38 | A.OFFVIS_ITS ---
Intake Vital Signs 11/18/23 12:39 Height 5 ft 8 in Weight 190 lb BMI 28.9 Intake Visit Reasons: Ov - Right Knee OA Last Injection 07/18/23 Intake Note: Natalia is a 73 year old female who presents today for a follow up of her right knee osteoarthritis, last injection done 07/18/23. Patient rpeorts that this injection was very helpful and she would like to repeat injection today. Allergies aspirin Allergy (Unknown, Verified 09/20/23 11:10) Unknown latex Allergy (Unknown, Verified 09/20/23 11:10) Unknown milk Allergy (Unknown, Verified 09/20/23 11:10) Unknown Sulfa (Sulfonamide Antibiotics) Allergy (Unknown, Verified 09/20/23 11:10) Unknown HPI Ov - Right Knee OA Last Injection 07/18/23 HPI Details Natalia is a 73 year old woman with right knee OA. She was last seen, and injected, on 07/18/23. She says this injection was helpful and would like to repeat it today. [facility] Medical History (Updated 09/20/23 @ 11:29 by YAHAIRA Biggs) Diarrhea Breast cancer screening by mammogram Screening for diabetes mellitus Positive colorectal cancer screening using Cologuard test Colon cancer screening Knee pain, right Plantar fascia syndrome Colonoscopy refused Right hand paresthesia Shingles Collagen vascular disease Myxomatous mitral valve Ulnar nerve palsy Leukopenia GERD (gastroesophageal reflux disease) Thrombocytopenia Osteoarthritis Surgical History Hx of esophagogastroduodenoscopy Hx of colonoscopy Deficient knowledge of leg surgery History of thoracotomy History of cataract surgery History of tubal ligation History of tonsillectomy History of appendectomy Family History Father Emphysema of lung Diabetes Mother Hypertension CVD (cardiovascular disease) Maternal Grandfather Esophageal cancer Maternal Uncle Esophageal cancer Lung cancer Sister No problems noted. Social History Housing: House Alcohol intake: current Alcohol intake frequency: holidays/special occasions only Alcohol type: wine Patient Tobacco Use Status: Never used Tobacco e-Cigarette/Vaping Use: Never Used Second Hand Smoke Exposure: No Advance Directives Date on File: 07/22/20 service: No Current occupational status: retired Cognitive needs: No Hearing needs: No Vision needs: No Review of Systems Const All systems reviewed & are unremarkable except as noted in HPI and below Physical Exam Vital Signs: BMI result Body Mass Index 28.9 Const General: no acute distress, alert and awake Orientation/consciousness: patient oriented x3 HEENT Head: Yes normocephalic and Yes atraumatic Eyes EOM: EOMs intact bilaterally Resp Effort & Inspection: normal respiratory effort and able to speak in complete sentences Cardio Jugular venous distension: no JVD Skin General skin exam: turgor normal Rashes: no rashes Neuro General: patient oriented x3 Extrem Other: no effusion medial joint line ttp Psych Appearance: grossly normal Affect: normal affect Attitude: cooperative Office Procedures Joint Injection/Drain Joint Injection/Drain Details: Injected 1 mL of Decadron and 3 mL 1% lidocaine and 3 mL of 0.25% Marcaine. Site was prepped using aseptic technique. Patient tolerated the procedure well. Primary Site: right knee Approach Used: anterolateral Coding - Large joint Procedure code (CPT) selection complete Assessment & Plan Assessment & Plan (1) Localized osteoarthritis of right knee: Code(s): M17.11 - Unilateral primary osteoarthritis, right knee Plan: Right knee OA. Injections are lasting for > 3 months. Injected right knee, Plan Prepared for Bull Wray MD by Se Grace, front office medical assistant, on 11/18/23 at 12:43 PM, EST. Coding Level of Care Code Est Pt Level 3 (85010) Diagnoses Localized osteoarthritis of right knee M17.11 CPT Codes Coding - Large joint: 65051 - Large joint ([id number])
[2023-11-18 12:39] VITALS: BMI 28.9
== END 2023-11-18 13:03 | disposition home or self-care (01) ==
PROVIDERS: PCP Internal Medicine; Visit Provider Orthopaedic Surgery
DX: M17.11 Unilateral primary osteoarthritis, right knee (principal)
CPT/HCPCS: 20610; 99213

== ENCOUNTER → 2023-11-18 12:37 | Outpatient (BNVA) | payer MEDICARE, SELFPAY | PROVIDERS: PCP Internal Medicine; Visit Provider Orthopaedic Surgery | DX: M17.11 Unilateral primary osteoarthritis, right knee (principal) | CPT/HCPCS: 20610; 99212; J0665; J1100 ==

== ENCOUNTER 2023-12-16 14:19 | Outpatient (AMB) | payer MEDICARE, SELFPAY ==
[2023-12-16 14:27] VITALS: BP 132/88; PULSE 74; O2SAT 97; BMI 29.2
--- NOTE | 2023-12-16 14:27 | A.OFFPC_ITS ---
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Qw omeprazole 20 mg PO DAILY potassium gluconate 500 mg PO .every other day Tobacco use date assessed: 12/16/23 Fall risk assessment: No Falls in past year Last assessed Fall Risk: 12/16/23 HPI follow up HPI Details 73-year-old overweight female with a his tory of GERD, hypercholesterolemia peripheral vascular disease right knee osteoarthritis coming in for follow-up. Last seen in August 2023. Patient's colonoscopy is up-to-date July 2022 mammogram up-to-date July 2023 bone density October 2021 with osteopenia. Patient is here for follow-up. Patient follows up with orthopedics for the right knee OA November 2023 had another injection. [facility] Medical History (Updated 09/20/23 @ 11:29 by YAHAIRA Biggs) Diarrhea Breast cancer screening by mammogram Screening for diabetes mellitus Positive colorectal cancer screening using Cologuard test Colon cancer screening Knee pain, right Plantar fascia syndrome Colonoscopy refused Right hand paresthesia Shingles Collagen vascular disease Myxomatous mitral valve Ulnar nerve palsy Leukopenia GERD (gastroesophageal reflux disease) Thrombocytopenia Osteoarthritis Surgical History Hx of esophagogastroduodenoscopy Hx of colonoscopy Deficient knowledge of leg surgery History of thoracotomy History of cataract surgery History of tubal ligation History of tonsillectomy History of appendectomy Family History Father Emphysema of lung Diabetes Mother Hypertension CVD (cardiovascular disease) Maternal Grandfather Esophageal cancer Maternal Uncle Esophageal cancer Lung cancer Sister No problems noted. Social History Housing: House Alcohol intake: current Alcohol intake frequency: holidays/special occasions only Alcohol type: wine Patient Tobacco Use Status: Never used Tobacco e-Cigarette/Vaping Use: Never Used Second Hand Smoke Exposure: No Advance Directives Date on File: 07/22/20 service: No Current occupational status: retired Cognitive needs: No Hearing needs: No Vision needs: No Questionnaire Thrive Questionnaire Date Thrive assessed: 12/16/23 I am a: Patient What is your living situation today?: I have a steady place to live Within the past 12 months, did the food you bought not last and you didn't have the money to get more?: Never true Within the past 12 months, did you worry whether your food would run out before you got money to buy more?: Never true Do you have trouble paying for medicines?: No Do you have trouble getting transportation to medical appointments?: No Do you have trouble paying your heating and electricity bill?: No Do you have trouble taking care of your child, family member or friend?: No Do you have trouble with day-to-day activities such as bathing, preparing meals, shopping, managing finances, etc.?: No Are you currently unemployed and looking for a job?: No Are you interested in more education?: No Please select the resources that you would like help with: None THRIVE Score: 0 AUDIT C Alcohol Use Questionnaire (AUDIT-C) 1. How often do you have a drink containing alcohol?: Monthly or less 2. How many drinks containing alcohol do you have on a typical day when you are drinking?: 1 or 2 3. How often do you have six or more drinks on one occasion?: Never Total Score: 1 Score Reviewed/Action Taken: No ISRAEL-7 AMB Questionnaire ISRAEL-7 Date ISRAEL - 7 assessed: 12/07/22 Source: Developed by Drs. David Velez, Alfreda Torres, Fortino Patel and colleagues, with an educational deja from [employer]. Physical exam (Primary Care) Vital Signs: Last Vital Signs Pulse 74 12/16/23 14:27 BP 132/88 12/16/23 14:27 Pulse Ox 97 12/16/23 14:27 Oxygen Delivery Method Room Air 12/16/23 14:27 BMI result Body Mass Index 29.2 Tobacco/Smoking Status: Tobacco use Status Tobacco use date assessed 12/16/23 12/16/23 14:28 Patient Tobacco Use Status Never used Tobacco 12/16/23 14:28 e-Cigarette/Vaping Use Never Used 12/16/23 14:28 Thrive Assessment: Date of Thrive Assessment Date Thrive assessed 12/16/23 12/16/23 14:28 Const General: alert; No acute distress Eyes Conjunctivae: conjunctivae normal Resp Auscultation: clear to auscultation bilaterally Cardio Rate: regular rate Rhythm: regular rhythm GI Inspection: Yes normal to inspection Extrem General: Yes normal to inspection and No edema Assessment and Plan Assessment & Plan (1) GERD (gastroesophageal reflux disease): Code(s): K21.9 - Gastro-esophageal reflux disease without esophagitis Qualifiers: Esophagitis presence: without esophagitis Qualified Code(s): K21.9 - Gastro-esophageal reflux disease without esophagitis Plan: Avoid the foods that causes that usually spicy foods, tomato products, juices, coffee, soda and foods that your sensitive to. After eating do not lie down, allow 3-4 hours before in lie down. And keep the head of bed above 30 degrees to avoid the acid from going up. Patient takes omeprazole 20 mg once a day (2) Hypercholesterolemia: Code(s): E78.00 - Pure hypercholesterolemia, unspecified Plan: Avoid fried foods, chicken skin, eggs, butter margarine, pastries and meat. Be it pork or beef they have a lot of cholesterol LDL goal of less than 130 and triglyceride of less than 150. (3) Localized osteoarthritis of right knee: Code(s): M17.11 - Unilateral primary osteoarthritis, right knee Plan: Patient follows up with orthopedics and in November had just had an injection. (4) Osteopenia: Comment: Bone density done October 2021 Code(s): M85.80 - Other specified disorders of bone density and structure, unspecified site Plan: Reminded about bone density for osteopenia Orders: Orders Comprehensive Met. Panel 6 Months E78.00 - Pure hypercholesterolemia, unspecified Vitamin B12 and Folate 6 Months E78.00 - Pure hypercholesterolemia, unspecified Vitamin D 25-OH Total 6 Months E78.00 - Pure hypercholesterolemia, unspecified XR DEXA axial skeleton Today M81.0 - Age-related osteoporosis without current pathological fracture, M85.80 - Other specified disorders of bone density and structure, unspecified site Complete Blood Count Auto Diff 6 Months E78.00 - Pure hypercholesterolemia, unsp ecified Free T4 (Free Thyroxine) 6 Months E78.00 - Pure hypercholesterolemia, unspecified Thyroid Stimulating Hormone 6 Months E78.00 - Pure hypercholesterolemia, unspecified Lipid Panel 6 Months E78.00 - Pure hypercholesterolemia, unspecified Coding Level of Care Code Est Pt Level 4 (53279) Diagnoses Gastroesophageal reflux disease without esophagitis K21.9 Esophagitis presence: without esophagitis Hypercholesterolemia E78.00 Localized osteoarthritis of right knee M17.11 Osteopenia M85.80
== END 2023-12-16 15:03 | disposition home or self-care (01) ==
PROVIDERS: PCP Internal Medicine; Visit Provider Internal Medicine
DX: K21.9 Gastro-esophageal reflux disease without esophagitis (principal); E78.00 Pure hypercholesterolemia, unspecified; M17.11 Unilateral primary osteoarthritis, right knee; M85.80 Other specified disorders of bone density and structure, unspecified site
CPT/HCPCS: 99214

== ENCOUNTER 2024-03-23 12:40 | Outpatient (AMB) | payer MEDICARE, SELFPAY ==
--- NOTE | 2024-03-23 12:45 | MHC.OFFVIS ---
Intake Visit Reasons: Ov - Right Knee OA Last Injection 11/18/23 Intake Note: Natalia is a 73 year old female who presents today for a follow up of her right knee osteoarthritis, last injection done 11/18/2023. Last injection gave good relief and she would like to repeat injection today Allergies aspirin Allergy (Unknown, Verified 12/16/23 14:27) Unknown latex Allergy (Unknown, Verified 12/16/23 14:27) Unknown milk Allergy (Unknown, Verified 12/16/23 14:27) Unknown Sulfa (Sulfonamide Antibiotics) Allergy (Unknown, Verified 12/16/23 14:27) Unknown HPI HPI Ov - Right Knee OA Last Injection 11/18/23: Details: Patient presents to the office today for repeat injection right knee. She reports she gets about 4 months relief. She would like to repeat injection today. [facility] Medical History (Updated 09/20/23 @ 11:29 by YAHAIRA Biggs) Diarrhea Breast cancer screening by mammogram Screening for diabetes mellitus Positive colorectal cancer screening using Cologuard test Colon cancer screening Knee pain, right Plantar fascia syndrome Colonoscopy refused Right hand paresthesia Shingles Collagen vascular disease Myxomatous mitral valve Ulnar nerve palsy Leukopenia GERD (gastroesophageal reflux disease) Thrombocytopenia Osteoarthritis Surgical History Hx of esophagogastroduodenoscopy Hx of colonoscopy Deficient knowledge of leg surgery History of thoracotomy History of cataract surgery History of tubal ligation History of tonsillectomy History of appendectomy Family History Father Emphysema of lung Diabetes Mother Hypertension CVD (cardiovascular disease) Maternal Grandfather Esophageal cancer Maternal Uncle Esophageal cancer Lung cancer Sister No problems noted. Social History Housing: House Alcohol intake: current Alcohol intake frequency: holidays/special occasions only Alcohol type: wine Patient Tobacco Use Status: Never used Tobacco e-Cigarette/Vaping Use: Never Used Second Hand Smoke Exposure: No Advance Directives Date on File: 07/22/20 service: No Current occupational status: retired Cognitive needs: No Hearing needs: No Vision needs: No Physical Exam Extrem Other: Right knee normal to inspection. No ecchymosis, erythema, or joint effusion. NVI. Office Procedures Joint Injection/Drain Joint Injection/Drain Primary Site: right knee Prep: site was prepped using aseptic technique, ethochloride spray was applied and injection warnings given Injected: 80 mg of, DepoMedrol, with 8 mL of (2% plain lido ) and in the joint Approach Used: anterolateral Procedure: The patient tolerated the procedure well, but had some pain with the injection and there was some relief with the local anesthesia Coding - Large joint Procedure code (CPT) selection complete Assessment & Plan Assessment & Plan (1) Localized osteoarthritis of right knee: Code(s): M17.11 - Unilateral primary osteoarthritis, right knee Category: Medical Plan: The patient was offered a cortisone injection in the right knee with 80 mg of DepoMedrol. The patient was explained the risk, benefits, and alternatives to receiving this injection. After receiving consent for the injection, the patient had the procedure done while in the office today. The patient tolerated the procedure well with no complications. Coding Level of Care Code Est Pt Level 3 (07735) Diagnoses Localized osteoarthritis of right knee M17.11 CPT Codes Coding - Large joint: 07415 - Large joint ([id number])
== END 2024-03-23 13:07 | disposition home or self-care (01) ==
PROVIDERS: PCP Internal Medicine; Visit Provider Orthopaedic Surgery
DX: M17.11 Unilateral primary osteoarthritis, right knee (principal)
CPT/HCPCS: 20610

== ENCOUNTER → 2024-03-23 12:40 | Outpatient (BNVA) | payer MEDICARE, SELFPAY | PROVIDERS: PCP Internal Medicine; Visit Provider Orthopaedic Surgery | DX: M17.11 Unilateral primary osteoarthritis, right knee (principal) | CPT/HCPCS: 20610; J1010 ==

== ENCOUNTER 2024-06-13 07:38 | Outpatient (REF) | payer MEDICARE, SELFPAY ==
[2024-06-13 11:14] LABS: MANUAL DIFF FLAG NO
[2024-06-13 11:32] LABS: Basophils Percent Auto 0.8 % (0-2); Eosinophils Absolute Auto 0.1 X10*3/uL (0.0-0.4); Eosinophils Percent Auto 1.6 % (0-4); Hematocrit 35.6 % (37.0-47.0); Hemoglobin 11.5 g/dl (12.0-16.0); Imm Gran Abs Auto 0.01 X10*3/uL (0.00-0.03); Imm Gran Pct Auto 0.3 % (0.0-0.4); Lymphocytes Percent Auto 27.8 % (20-40); Mean Corpuscular HGB Conc 32.3 g/dl (31.0-35.0); Mean Corpuscular Hemoglobin 30.1 pg (27.0-33.0); Mean Corpuscular Volume 93.2 fL (80.0-98.0); Mean Platelet Volume 11.1 fL (9.4-12.3); Monocytes Absolute Auto 0.3 X10*3/uL (0.1-1.2); Monocytes Percent Auto 8.4 % (2-11); Neutrophils Absolute Auto 2.2 x10*3/uL (2.0-8.3); Neutrophils Percent Auto 61.1 % (45-73); Platelet Count 136 X10*3/uL (160-400); Red Blood Count 3.82 X10*6/uL (4.20-5.50); Red Cell Distribution Width 13.6 % (11.0-16.0); White Blood Count 3.7 X10*3/uL (4.8-10.8)
[2024-06-13 11:54] LABS: Alanine Aminotransferase 11 U/L (0-31); Alkaline Phosphatase 80 U/L (39-117); Anion Gap 10 (12-20); Aspartate Amino Transferase 15 U/L (5-31); Bilirubin Total 0.4 mg/dL (0.0-1.0); Blood Urea Nitrogen 16 mg/dL (9-16); Carbon Dioxide 28 mmol/L (22-29); Chloride 109 mmol/L (96-108); Cholesterol 176 mg/dL (<200); Estimated Glomerular Filt Rate > 60; Glucose Random 91 mg/dL (60-115); HDL Cholesterol 58 mg/dL (>40); LDL Cholesterol Calculated 102 mg/dL (<100); Potassium 4.2 mmol/L (3.3-5.1); Sodium 143 mmol/L (135-145); Total Protein 6.6 g/dL (6.5-8.0); Triglycerides 81 mg/dL (<150)
[2024-06-13 12:14] LABS: Free T4 (Free Thyroxine) 0.92 ng/dL (0.71-1.85); Thyroid Stimulating Hormone 1.62 uIU/mL (0.32-4.0); Vitamin D 25-OH Total 67.6 ng/mL (>30)
[2024-06-13 12:25] LABS: Vitamin B12 380 pg/mL (200-900)
== END 2024-06-13 07:39 | disposition home or self-care (01) ==
LOC: HO.WFDLDS 07:38
PROVIDERS: Visit Provider Internal Medicine
DX: E78.00 Pure hypercholesterolemia, unspecified (principal)
CPT/HCPCS: 36415; 80053; 80061; 82306; 82607; 82746; 84439; 84443; 85025

== ENCOUNTER 2024-06-28 12:50 | Outpatient (AMB) | payer MEDICARE, SELFPAY ==
[2024-06-28 12:53] VITALS: BP 122/84; PULSE 61; O2SAT 98; BMI 28.4
--- NOTE | 2024-06-28 12:53 | A.OFFPC_ITS ---
Vital Signs 06/28/24 12:53 Height 5 ft 8 in Weight 187 lb BMI 28.4 BP 122/84 Blood Pressure Location Lt brachial Position Sitting Pulse 61 Pulse Source Pulse Oximeter Pulse Oximetry (%) 98 Oxygen Delivery Method Room Air Intake Visit Reasons: 6mth f/u Research Physicist Required: No Accompanied by: Self / Same As Patient Allergies aspirin Allergy (Unknown, Verified 06/28/24 12:54) Unknown latex Allergy (Unknown, Verified 06/28/24 12:54) Unknown milk Allergy (Unknown, Verified 06/28/24 12:54) Unknown Sulfa (Sulfonamide Antibiotics) Allergy (Unknown, Verified 06/28/24 12:54) Unknown Medication List - Last Reconciled 06/28/24 by Renata Morrison MD ascorbic acid (vitamin C) 1 g PO .other day calcium carbonate (Calcium 500) PO celecoxib 200 mg PO DAILY cholecalciferol (vitamin D3) 50 mcg PO DAILY magnesium 200 mg PO DAILY meclizine 25 mg PO DAILY PRN omeprazole 20 mg PO DAILY potassium gluconate 500 mg PO .every other day Tobacco use date assessed: 06/28/24 Fall risk assessment: 1 Fall in past year Last assessed Fall Risk: 06/28/24 Dental Screening Dental Screen Date: 06/28/24 Did you have a dental visit in the last 12 months?: Yes Did you have a dental problem in the last 6 months where you did not have access to dental care?: No Was dental information given to patient?: Patient has dentist HPI 6mth f/u HPI Details 74-year-old overweight female with a his tory of GERD hypercholesterolemia right knee osteoarthritis and osteopenia coming in for follow-up. Last seen in December 2023. Colonoscopy is up-to-date 08/05/2022. Mammogram is up-to-date bone density is due. Review of the notes in March was seen by orthopedics for the right knee osteoarthritis for injections. Noted blood work to have some mild anemia. PAtient has been getting intermittent diarrhea and sees GI on immodium Dx: !BS- did try to stop fish oil and the diarrhea got better. [facility] Medical History (Updated 06/28/24 @ 13:00 by Renata Morrison MD) Breast cancer screening by mammogram Localized osteoarthritis of right knee Colon cancer screening Diarrhea Screening for diabetes mellitus Positive colorectal cancer screening using Cologuard test Knee pain, right Plantar fascia syndrome Colonoscopy refused Right hand paresthesia Shingles Collagen vascular disease Myxomatous mitral valve Ulnar nerve palsy Leukopenia GERD (gastroesophageal reflux disease) Thrombocytopenia Osteoarthritis Surgical History Hx of esophagogastroduodenoscopy Hx of colonoscopy Deficient knowledge of leg surgery History of thoracotomy History of cataract surgery History of tubal ligation History of tonsillectomy History of appendectomy Family History Father Emphysema of lung Diabetes Mother Hypertension CVD (cardiovascular disease) Maternal Grandfather Esophageal cancer Maternal Uncle Esophageal cancer Lung cancer Sister No problems noted. Social History Housing: House Alcohol intake: current Alcohol intake frequency: holidays/special occasions only Alcohol type: wine Patient Tobacco Use Status: Never used Tobacco e-Cigarette/Vaping Use: Never Used Second Hand Smoke Exposure: No Advance Directives Date on File: 07/22/20 service: No Current occupational status: retired Cognitive needs: No Hearing needs: No Vision needs: No Questionnaire PHQ-9 Over the last 2 weeks, how often have you been bothered by any of the following problems? 1. Little interest or pleasure in doing things: not at all 2. Feeling down, depressed, or hopeless: not at all 3. Trouble falling or staying asleep, or sleeping too much: more than half the days 4. Feeling tired or having little energy: several days 5. Poor appetite or overeating: not at all 6. Feeling bad about yourself - or that you are a failure or have let yourself or your family down: not at all 7. Trouble concentrating on things, such as reading the newspaper or watching television: not at all 8. Moving or speaking so slowly that other people could have noticed. Or the opposite - being so fidgety or restless that you have been moving around a lot more than usual: not at all 9. Thoughts that you would be better off or of hurting yourself in some way: not at all Total score: 3 Depression Screening Interpretation: Negative Depression Screening Done: Yes 90640 - PHQ-9 Billing: Yes Source: Developed by Drs. Dvaid Velez, Alfreda Torres, Fortino Patel and colleagues, with an educational deja from [employer]. Thrive Questionnaire Date Thrive assessed: 06/28/24 I am a: Patient What is your living situation today?: I have a steady place to live Within the past 12 months, did the food you bought not last and you didn't have the money to get more?: Never true Within the past 12 months, did you worry whether your food would run out before you got money to buy more?: Never true Do you have trouble paying for medicines?: No Do you have trouble getting transportation to medical appointments?: No Do you have trouble paying your heating and electricity bill?: No Do you have trouble taking care of your child, family member or friend?: No Do you have trouble with day-to-day activities such as bathing, preparing meals, shopping, managing finances, etc.?: No Are you currently unemployed and looking for a job?: No Are you interested in more education?: No Please select the resources that you would like help with: None Currently or been in a relationship where the following occur: No concerns reported THRIVE Score: 0 AUDIT C Alcohol Use Questionnaire (AUDIT-C) 1. How often do you have a drink containing alcohol?: Monthly or less 2. How many drinks containing alcohol do you have on a typical day when you are drinking?: 1 or 2 3. How often do you have six or more drinks on one occasion?: Never Total Score: 1 Score Reviewed/Action Taken: No ISRAEL-7 AMB Questionnaire ISRAEL-7 Date ISRAEL - 7 assessed: 06/28/24 Worrying too much about different things: 0 = Not at all Trouble relaxin = Not at all Being so restless that it is hard to sit still: 0 = Not at all Becoming easily annoyed or irritable: 0 = Not at all Feeling afraid as if something awful might happen: 0 = Not at all Source: Developed by Drs. David Velez, Alfreda Torres, Fortino Patel and colleagues, with an educational deja from [employer]. Physical exam (Primary Care) Vital Signs: Oxygen Delivery Method Room Air 06/28/24 12:53 BMI result Body Mass Index 28.4 Tobacco/Smoking Status: Tobacco use Status Tobacco use date assessed 06/28/24 06/28/24 12:55 Patient Tobacco Use Status Never used Tobacco 06/28/24 12:55 e-Cigarette/Vaping Use Never Used 06/28/24 12:55 PHQ-9: PHQ-9 Score PHQ-9: Total score 3 06/28/24 12:55 Depression Screening Interpretation: Negative Thrive Assessment: Date of Thrive Assessment Date Thrive assessed 06/28/24 06/28/24 12:55 Currently or been in a relationship where the following occur: No concerns reported Const General: alert; No acute distress Eyes Conjunctivae: conjunctivae normal Resp Auscultation: clear to auscultation bilaterally Cardio Rate: regular rate Rhythm: regular rhythm GI Inspection: Yes normal to inspection Extrem General: Yes normal to inspection and No edema Assessment and Plan Assessment & Plan (1) Anemia: Code(s): D64.9 - Anemia, unspecified Plan: Recent anemia workup advised (2) GERD (gastroesophageal reflux disease): Code(s): K21.9 - Gastro-esophageal reflux disease without esophagitis Qualifiers: Esophagitis presence: without esophagitis Qualified Code(s): K21.9 - Gastro-esophageal reflux disease without esophagitis Plan: Avoid the foods that causes that usually spicy foods, tomato products, juices, coffee, soda and foods that your sensitive to. After eating do not lie down, allow 3-4 hours before in lie down. And keep the head of bed above 30 degrees to avoid the acid from going up. (3) Hypercholesterolemia: Code(s): E78.00 - Pure hypercholesterolemia, unspecified Plan: Avoid fried foods, chicken skin, eggs, butter margarine, pastries and meat. Be it pork or beef they have a lot of cholesterol LDL goal of less than 130 and triglyceride of less than 150 recent blood work good (4) Osteoarthritis of right knee: Code(s): M17.11 - Unilateral primary osteoarthritis, right knee Plan: Patient has met with Orthopedics in March and had injections done. Keep active (5) Breast cancer screening by mammogram: Code(s): Z12.31 - Encounter for screening mammogram for malignant neoplasm of breast Plan: Patient has a schedule mammogram (6) Osteopenia: Comment: Bone density done October 2021 Code(s): M85.80 - Other specified disorders of bone density and structure, unspecified site Plan: Patient has a scheduled bone density Coding Level of Care Code Est Pt Level 4 (03046) Diagnoses Anemia D64.9 Gastroesophageal reflux disease without esophagitis K21.9 Esophagitis presence: without esophagitis Hypercholesterolemia E78.00 Osteoarthritis of right knee M17.11 Breast cancer screening by mammogram Z12.31 Osteopenia M85.80
== END 2024-06-28 13:26 | disposition home or self-care (01) ==
PROVIDERS: PCP Internal Medicine; Visit Provider Internal Medicine
DX: D64.9 Anemia, unspecified (principal); K21.9 Gastro-esophageal reflux disease without esophagitis; E78.00 Pure hypercholesterolemia, unspecified; M17.11 Unilateral primary osteoarthritis, right knee; Z12.31 Encounter for screening mammogram for malignant neoplasm of breast; M85.80 Other specified disorders of bone density and structure, unspecified site
CPT/HCPCS: 99214

== ENCOUNTER 2024-07-24 12:28 | Outpatient (REF) | payer MEDICARE, SELFPAY ==
--- NOTE | ~2024-07-24 | MM_ITS ---
EXAMINATION: BONE DENSITOMETRY CLINICAL INDICATION: Age-related osteoporosis without current pathological fracture. COMPARISON: Previous BD dated 10/28/2021 and baseline BD dated 08/09/2014. TECHNIQUE: Using a [employer] DXA System (software version: 13.1) manufactured by [employer], dual-energy x-ray absorptiometry was performed of the lumbar spine and left hip. The images are of good technical quality. Summary results are attached. FINDINGS: LEFT FEMUR, NECK: Current: BMD 0.766 g/cm2, Z-score -0.5, T-score -2.0, osteopenia. Prior: BMD 0.828 g/cm2. Baseline: BMD 0.728 g/cm2. LEFT FEMUR, TOTAL: Current: BMD 0.825 g/cm2, Z-score -0.2, T-score -1.5, osteopenia, 11.2% decrease from previous, 1.5% increase from baseline (<5% change is not significant). Prior: BMD 0.929 g/cm2. Baseline: BMD 0.813 g/cm2. AP SPINE L1-L3 (excluding L4): The data of L1-L4 has been changed to exclude the L4 vertebral body, because significant degenerative change at this level may cause overestimation of lumbar spine density. Current: BMD 1.024 g/cm2, Z-score -0.1, T-score -1.2, osteopenia, 0.3% increase from previous, 1.3% decrease from baseline (<5% change is not significant). Prior: BMD 1.021 g/cm2. Baseline: BMD 1.037 g/cm2. IDENTIFIED RISK FACTORS: Early menopause, secondary osteoporosis, height loss, history of fracture (adult). HISTORY OF FRACTURE: Other. MEDICATIONS: Calcium supplements or multivitamin, vitamin D. MM/XR DEXA axial skeleton IMPRESSION: 1. DIAGNOSIS: Osteopenia based on the lowest T-score value of -2.0 in the femoral neck applying World Health Organization criteria. 2. 10-YEAR FRACTURE RISK PREDICTION, FRAX: Major osteoporotic fracture (clinical spine, forearm, hip or shoulder) 19.1%. Hip fracture 4.1%. 3. Treatment Recommendations: NOF guidelines recommend consideration for treatment in postmenopausal women and men age 50 and older presenting with the following: -A hip or vertebral (clinical or morphometric) fracture. -T-score less than or equal to -2.5 at the femoral neck or spine after appropriate evaluation to exclude secondary causes. -Low bone mass at the hip or spine and a 10-year fracture probability by FRAX of greater than or equal to 3% for hip fracture or greater than or equal to 20% for major osteoporotic fracture based on the [place] adapted WHO algorithm. 4. Other Recommendations: All treatment decisions require clinical judgment and consideration of individual patient factors, including patient preferences, comorbidities, previous drug use, risk factors not captured in the FRAX model (e.g. frailty, falls, vitamin D deficiency, increased bone turnover, interval significant decline in bone density) and possible under or overestimation of fracture risk by FRAX. Additional medical evaluation for secondary cause of low bone mineral density may be appropriate. FUTURE SCAN RECOMMENDATION: People with diagnosed cases of osteoporosis or at high risk for fracture should have regular bone mineral density tests. For patients eligible for Medicare, routine testing is allowed once every 2 years. The testing frequency can be increased to one year for patients who have rapidly progressing disease, those who are receiving or discontinuing medical therapy to restore bone mass, or have additional risk factors. Electronically signed by: Arnol Osorio MD 07/26/2024 08:06 AM EDT
--- NOTE | ~2024-07-24 | MM_ITS ---
EXAMINATION: MM SCREENING DIGITAL BREAST TOMOSYNTHESIS, BILATERAL CLINICAL INFORMATION: Screening. Asymptomatic. COMPARISON: Mammography: Comparison is made with available priors TECHNIQUE: Digital breast mammography with tomosynthesis is performed in both the craniocaudal and mediolateral oblique views along with computer-aided detection (CAD). FINDINGS: The breasts are heterogeneously dense, which may obscure small masses (ACR BI-RADS breast composition Category c). There are no significant masses, abnormal calcifications, or other abnormalities. MM/MM tomosynthesis screening BI IMPRESSION: No mammographic evidence of malignancy. ASSESSMENT: BI-RADS BI-RADS 1 - Negative RECOMMENDATION: Routine annual mammography screening. 1 year F/U This examination should not preclude the clinical evaluation of a suspicious palpable abnormality. This patient's information was entered into a reminder system with a target due date for their next mammogram. Electronically signed by: Radha Le DO 08/03/2024 05:04 PM EDT
== END 2024-07-24 12:29 | disposition home or self-care (01) ==
LOC: HO.MAMMO 12:28
PROVIDERS: PCP Internal Medicine; Visit Provider Internal Medicine
DX: Z12.31 Encounter for screening mammogram for malignant neoplasm of breast (principal); M81.0 Age-related osteoporosis without current pathological fracture; M85.80 Other specified disorders of bone density and structure, unspecified site
CPT/HCPCS: 77063; 77067; 77080

== ENCOUNTER → 2024-07-24 12:45 | Outpatient (BNV) | payer MEDICARE, SELFPAY | PROVIDERS: PCP Internal Medicine; Visit Provider Internal Medicine | DX: Z12.31 Encounter for screening mammogram for malignant neoplasm of breast (principal) | CPT/HCPCS: 77063; 77067 ==

== ENCOUNTER 2024-08-09 12:52 | Outpatient (REF) | payer MEDICARE, SELFPAY ==
[2024-08-09 13:27] LABS: MANUAL DIFF FLAG NO
[2024-08-09 14:14] LABS: Basophils Percent Auto 0.8 % (0-2); Eosinophils Absolute Auto 0.1 X10*3/uL (0.0-0.4); Eosinophils Percent Auto 1.4 % (0-4); Hematocrit 38.2 % (37.0-47.0); Hemoglobin 12.4 g/dl (12.0-16.0); Imm Gran Abs Auto 0.01 X10*3/uL (0.00-0.03); Imm Gran Pct Auto 0.2 % (0.0-0.4); Immature Retic Fraction 8.7 % (3.0-15.9); Lymphocytes Absolute Auto 1.4 X10*3/uL (1.2-4.9); Lymphocytes Percent Auto 28.6 % (20-40); Mean Corpuscular HGB Conc 32.5 g/dl (31.0-35.0); Mean Corpuscular Hemoglobin 30.5 pg (27.0-33.0); Mean Corpuscular Volume 94.1 fL (80.0-98.0); Mean Platelet Volume 10.3 fL (9.4-12.3); Monocytes Absolute Auto 0.4 X10*3/uL (0.1-1.2); Monocytes Percent Auto 7.4 % (2-11); Neutrophils Percent Auto 61.6 % (45-73); Platelet Count 172 X10*3/uL (160-400); Red Blood Count 4.06 X10*6/uL (4.20-5.50); Red Cell Distribution Width 13.2 % (11.0-16.0); Retic HGB Equivalent 32.3 pg (30.0-35.0); Reticulocyte Percent 1.5 % (0.5-1.8); Reticulocytes Absolute 0.063 X10*6/uL (0.026-0.095); White Blood Count 4.9 X10*3/uL (4.8-10.8)
[2024-08-09 15:07] LABS: Iron 90 mcg/dL (30-160); Percent Iron Saturation 34 % (15-50); Total Iron Binding Capacity 265 mcg/dL (228-428); Unsaturated Iron Binding 175 ug/dL
[2024-08-09 15:16] LABS: Ferritin 138 ng/mL (10-250)
[2024-08-09 15:19] LABS: Folate 11.1 ng/mL (> or = 4.0); Vitamin B12 384 pg/mL (200-900)
== END 2024-08-09 12:53 | disposition home or self-care (01) ==
LOC: HO.LAB 12:52
PROVIDERS: Absent Provider Internal Medicine; PCP Internal Medicine; Visit Provider Orthopaedic Surgery
DX: M17.11 Unilateral primary osteoarthritis, right knee (principal); D64.9 Anemia, unspecified
CPT/HCPCS: 20610; 36415; 82607; 82728; 82746; 83540; 85025; 85045; J0665; J1100; J2003

== ENCOUNTER 2024-08-09 12:52 | Outpatient (AMB) | payer MEDICARE, SELFPAY ==
--- NOTE | 2024-08-09 12:59 | MHC.OFFVIS ---
Intake Visit Reasons: Right Knee Injection - Last Injection 03/23/24 Intake Note: Natalia is a 74 year old female who presents today for a repeat injection in the right knee. Last injection done 03/23/24, she found good relief with this injection and would like to repeat today. Allergies aspirin Allergy (Unknown, Verified 06/28/24 12:54) Unknown latex Allergy (Unknown, Verified 06/28/24 12:54) Unknown milk Allergy (Unknown, Verified 06/28/24 12:54) Unknown Sulfa (Sulfonamide Antibiotics) Allergy (Unknown, Verified 06/28/24 12:54) Unknown HPI HPI Right Knee Injection - Last Injection 03/23/24: Details: Natalia is a 74 year old female who presents today for a repeat injection in the right knee. Last injection done 03/23/24, she found good relief with this injection and would like to repeat today. [facility] Medical History (Updated 06/28/24 @ 13:00 by Renata Morrison MD) Breast cancer screening by mammogram Localized osteoarthritis of right knee Colon cancer screening Diarrhea Screening for diabetes mellitus Positive colorectal cancer screening using Cologuard test Knee pain, right Plantar fascia syndrome Colonoscopy refused Right hand paresthesia Shingles Collagen vascular disease Myxomatous mitral valve Ulnar nerve palsy Leukopenia GERD (gastroesophageal reflux disease) Thrombocytopenia Osteoarthritis Surgical History Hx of esophagogastroduodenoscopy Hx of colonoscopy Deficient knowledge of leg surgery History of thoracotomy History of cataract surgery History of tubal ligation History of tonsillectomy History of appendectomy Family History Father Emphysema of lung Diabetes Mother Hypertension CVD (cardiovascular disease) Maternal Grandfather Esophageal cancer Maternal Uncle Esophageal cancer Lung cancer Sister No problems noted. Social History Housing: House Alcohol intake: current Alcohol intake frequency: holidays/special occasions only Alcohol type: wine Patient Tobacco Use Status: Never used Tobacco e-Cigarette/Vaping Use: Never Used Second Hand Smoke Exposure: No Advance Directives Date on File: 07/22/20 service: No Current occupational status: retired Cognitive needs: No Hearing needs: No Vision needs: No Physical Exam Extrem Other: Right knee normal to inspection. No ecchymosis, erythema, or joint effusion. NVI. Office Procedures Joint Injection/Aspiration Joint Injection/Aspiration Details: Injected 1 mL of Decadron and 3 mL 1% lidocaine and 3 mL of 0.25% Marcaine. Site was prepped using aseptic technique. Patient tolerated the procedure well. Primary Site: right knee Approach Used: anterolateral Coding - Large joint Procedure code (CPT) selection complete Assessment & Plan Assessment & Plan (1) Osteoarthritis of right knee: Code(s): M17.11 - Unilateral primary osteoarthritis, right knee Category: Medical Plan: I injected her right knee today. May follow up in 3 months for additional injections should she so desire Coding Level of Care Code Est Pt Level 3 (69025) Diagnoses Osteoarthritis of right knee M17.11 CPT Codes Coding - Large joint: 29322 - Large joint ([id number])
== END 2024-08-09 13:10 | disposition home or self-care (01) ==
PROVIDERS: PCP Internal Medicine; Visit Provider Orthopaedic Surgery
DX: M17.11 Unilateral primary osteoarthritis, right knee (principal)
CPT/HCPCS: 20610

== ENCOUNTER 2024-09-21 10:55 | Outpatient (AMB) | payer MEDICARE, SELFPAY ==
[2024-09-21 11:00] VITALS: BP 112/70; PULSE 76; O2SAT 98; BMI 28.3
--- NOTE | 2024-09-21 11:00 | A.OFFVIS_ITS ---
Intake Vital Signs 09/21/24 11:00 Height 5 ft 8 in Weight 186 lb BMI 28.3 BP 112/70 Blood Pressure Location Lt brachial Position Sitting Pulse 76 Pulse Source Pulse Oximeter Pulse Oximetry (%) 98 Oxygen Delivery Method Room Air Intake Visit Reasons: SAWV Allergies aspirin Allergy (Unknown, Verified 09/21/24 11:01) Unknown latex Allergy (Unknown, Verified 09/21/24 11:01) Unknown milk Allergy (Unknown, Verified 09/21/24 11:01) Unknown Sulfa (Sulfonamide Antibiotics) Allergy (Unknown, Verified 09/21/24 11:01) Unknown Medication List - Last Reconciled 09/21/24 by Renata Morrison MD ascorbic acid (vitamin C) 1 g PO .other day calcium carbonate (Calcium 500) PO celecoxib 200 mg PO DAILY cholecalciferol (vitamin D3) 50 mcg PO DAILY loperamide 2 mg PO Q6H PRN magnesium 200 mg PO DAILY meclizine 25 mg PO DAILY PRN omeprazole 20 mg PO DAILY potassium gluconate 500 mg PO .every other day HPI SAWV HPI Details The patient is a 74-year-old female presenting for an annual wellness visit. She has a history of Gastroesophageal Reflux Disease (GERD), managed with Omeprazole, taken on an alternating day schedule. Her cholesterol levels have been monitored with the latest LDL recorded at 102, indicating well-controlled hypercholesterolemia. The patient was diagnosed with osteopenia, which has shown an 11% decrease in bone density in the left femur, with stable spinal measurements. She received treatment for osteoarthritis of the knee with an injection in March 2024 and continued to experience issues. The patient has a diagnosis of irritable bowel syndrome (IBS), predominantly diarrhea, treated with loperamide as needed. Previous episodes of diarrhea have lasted several months, and she is currently evaluating fiber intake to manage symptoms. Recent surgical history includes laser treatment two weeks ago for fogginess in the right eye after cataract extraction and lens implantation five years ago. The patient reports ongoing right leg swelling with support stocking use and history of surgical intervention on the leg, previously swollen with decreased tissue absorption leading to foot edema. - Colonoscopy: Up to date, performed in 2021 - Mammogram: Up to date, July 2024 - Bone Density Scan: Up to date, July 2024; noted 11% decrease in left femur density - Blood work: July 2024 showed normal counts, no anemia, normal iron levels - Vaccinations: Shingles, pneumonia, flu shot (July), and tetanus are up to date - Lifestyle Discussion: Calcium and gab min D supplementation for bone health discussed - Reports minimal alcohol use, approxima tely once every few months - Never smoked tobacco - Reports difficulty with mobility, need s assistance for standing from sitting - Reports dietary intake including daily oatmeal and awareness of GERD- triggering foods - Long-term use of support stockings due to previous leg surgeries - Musculoskeletal: Reports right thumb p ain with hand use, difficulty with mobility and strength - Respiratory: Denies any recent episode s of shortness of breath, increased cough thought to be allergy-related - Gastrointestinal: Reports recurring di arrhea, managed with Imodium; denies [place] or vomiting - Genitourinary: Denies any nocturia, no dysuria reported - Neurological: Reports dizziness, espec ially on fast movements [facility] Medical History (Updated 09/21/24 @ 11:30 by Renata Morrison MD) Breast cancer screening by mammogram Localized osteoarthritis of right knee Colon cancer screening Diarrhea Screening for diabetes mellitus Positive colorectal cancer screening using Cologuard test Knee pain, right Plantar fascia syndrome Colonoscopy refused Right hand paresthesia Shingles Collagen vascular disease Myxomatous mitral valve Ulnar nerve palsy Leukopenia GERD (gastroesophageal reflux disease) Thrombocytopenia Osteoarthritis Surgical History (Updated 09/21/24 @ 11:24 by Renata Morrison MD) H/O eye surgery Hx of esophagogastroduodenoscopy Hx of colonoscopy Deficient knowledge of leg surgery History of thoracotomy History of cataract surgery History of tubal ligation History of tonsillectomy History of appendectomy Family History Father Emphysema of lung Diabetes Mother Hypertension CVD (cardiovascular disease) Maternal Grandfather Esophageal cancer Maternal Uncle Esophageal cancer Lung cancer Sister No problems noted. Social History (Updated 09/21/24 @ 11:25 by Renata Morrison MD) Housing: House Alcohol intake: current Alcohol intake frequency: holidays/special occasions only Alcohol type: wine Comment: once Q 2 month 1 glass Patient Tobacco Use Status: Never used Tobacco e-Cigarette/Vaping Use: Never Used Second Hand Smoke Exposure: No Advance Directives Date on File: 07/22/20 service: No Current occupational status: retired Cognitive needs: No Hearing needs: No Vision needs: No Questionnaire Medicare Wellness Checkup [age] What gender do you identify with?: female During the past 4 weeks, how much have you been bothered by emotional problems such as feeling anxious, depressed, irritable, sad or downhearted, and blue?: not at all During the past 4 weeks, has your physical & emotional health limited your social activities with family, friends, neighbors, or groups?: not at all During the past 4 weeks, how much bodily pain have you generally had?: very mild pain During the past 4 weeks, was someone available to help you if you needed & wanted help?: yes, as much as I wanted During the past 4 weeks, what was the hardest physical activity you could do for at least 2 minutes?: moderate Can you get to places out of walking distance without help? (For eg., can you travel alone on buses, taxis or drive your car?): Yes Can you go shopping for groceries or clothes without someone's help?: Yes Can you prepare your own meals?: Yes Can you do your housework without help?: Yes Because of any health problems, do you need the help of another person with your personal care needs such as eating, bathing, dressing or getting around the house?: No Can you handle your own money without help?: Yes During the past 4 weeks, how would you rate your health in general?: fair During the past 4 weeks how have things been going for you?: pretty well Are you having difficulties driving your car?: yes, often Do you always fasten your seat belt when you are in a car?: yes, usually During past 4 weeks, have you been bothered by the following: never: Sexual problems?, Trouble eating well?, Teeth or denture problems? and Problems using the telephone? and seldom: Falling or dizzy when standing up and Tiredness or fatigue? Have you fallen 2 or more times in the past year?: No Are you afraid of falling?: Yes Are you a smoker?: no During the past 4 weeks, how many drinks of wine, beer, or other alcoholic beverages did you have?: no alcohol at all Do you exercise for about 20 minutes 3 or more times a week?: no, I usually do not exercise this much Have you been given information to help with the following?: no: Hazards in your house that might hurt you? and no: Keeping track of your medications? How often do you have trouble taking medicines the way you have been told to take them?: I always take medicine as prescribed How confident are you that you can control & manage most of your health problems?: very confident What is your race?: White PHQ-9 Over the last 2 weeks, how often have you been bothered by any of the following problems? 1. Little interest or pleasure in doing things: not at all 2. Feeling down, depressed, or hopeless: not at all 3. Trouble falling or staying asleep, or sleeping too much: more than half the days 4. Feeling tired or having little energy: several days 5. Poor appetite or overeating: not at all 6. Feeling bad about yourself - or that you are a failure or have let yourself or your family down: not at all 7. Trouble concentrating on things, such as reading the newspaper or watching television: not at all 8. Moving or speaking so slowly that other people could have noticed. Or the opposite - being so fidgety or restless that you have been moving around a lot more than usual: not at all 9. Thoughts that you would be better off or of hurting yourself in some way: not at all Total score: 3 Depression Screening Interpretation: Negative Depression Screening Done: Yes 35798 - PHQ-9 Billing: Yes Source: Developed by Drs. David Velez, Alfreda Torres, Fortino Patel and colleagues, with an educational deja from [employer]. Thrive Questionnaire Date Thrive assessed: 06/28/24 ISRAEL-7 AMB Questionnaire ISRAEL-7 Date ISRAEL - 7 assessed: 09/21/24 Feeling nervous, anxious, or on edge: 0 = Not at all Not being able to stop or control worryin = Not at all Worrying too much about different things: 0 = Not at all Trouble relaxin = Not at all Being so restless that it is hard to sit still: 0 = Not at all Becoming easily annoyed or irritable: 0 = Not at all Feeling afraid as if something awful might happen: 0 = Not at all Total ISRAEL-7 score (0-4 normal; 5-9 mild; 10-14 moderate; 15-21 severe): 0 Source: Developed by Drs. David Velez, Alfreda Torres, Fortino Patel and colleagues, with an educational deja from [employer]. ISRAEL-7 Assessment Billing ISRAEL-7 Assessment Tool: ISRAEL-7 Assessment 55484 Review of Systems Const Denies poor appetite and Denies weakness Eyes Denies no additional complaints ENT Reports Normal hearing present, Denies dizziness, Denies nasal congestion, Denies tinnitus and Denies sore throat Card Denies chest pain, Denies syncope, Denies rapid heart rate and Denies dyspnea Resp Denies cough and Denies dyspnea GI Denies change in stool character, Reports constipation, Denies diarrhea, Denies nausea and Denies vomiting Denies urinary frequency, Denies difficulty voiding and Denies dysuria Neuro Reports Normal hearing present, Denies confusion, Denies dizziness, Denies syncope and Denies weakness Psych Denies confusion Physical Exam Vital Signs: Last Vital Signs Pulse 76 09/21/24 11:00 BP 112/70 09/21/24 11:00 Pulse Ox 98 09/21/24 11:00 Oxygen Delivery Method Room Air 09/21/24 11:00 BMI result Body Mass Index 28.3 Const General: No confusion Orientation/consciousness: No confusion HEENT Head: Yes normocephalic Ears: external ears normal and TM's normal bilaterally Face and sinus: Yes normal facial exam Mouth: moist mucous membranes Throat: Yes tonsils normal Eyes Conjunctivae: conjunctivae normal Pupils: Equal, round and reactive pupils present and Pupil accommodation reflex normal Direct Ophthalmoscopy: normal light reflex Neck Neck: No lymphadenopathy Thyroid: Thyroid normal Chest Chest palpation & inspection: normal inspection of the chest Resp Effort & Inspection: normal respiratory effort and no audible wheezes Auscultation: clear to auscultation bilaterally, no crackles, no wheezes and lung sounds not diminished Cardio Rate: regular rate Rhythm: regular rhythm Peripheral pulses: radial pulses present and dorsalis pedis present GI Palpation (GI): no masses Auscultation: normal bowel sounds and normoactive bowel sounds Rectal Exam - Female: deferred Skin General skin exam: no rashes or lesions noted Rashes: no rashes Neuro General: No confusion Cranial nerves: Yes Equal, round and reactive pupils present and Yes Normal hearing present Cognition (Neuro): normal cognition Gait exam (Neuro): Normal gait present Motor exam (neuro): 5/5 motor strength present throughout Deep tendon reflexes (DTR's): Right brachioradialis reflex intensity grade: 2+, Left brachioradialis reflex intensity grade: 2+, Right patellar reflex intensity grade: 2+ and Left patellar reflex intensity grade: 2+ Extrem Other: R > L and R ight has tenderness on palpation General: Yes edema Assessment & Plan Assessment & Plan (1) Medicare annual wellness visit, subsequent: Code(s): Z00.00 - Encounter for general adult medical examination without abnormal findings Plan: Patient is advised to eat healthy, keep well hydrated, keep active and have adequate sleep. (2) GERD (gastroesophageal reflux disease): Code(s): K21.9 - Gastro-esophageal reflux disease without esophagitis Qualifiers: Esophagitis presence: without esophagitis Qualified Code(s): K21.9 - Gastro-esophageal reflux disease without esophagitis Plan: Avoid the foods that causes that usually spicy foods, tomato products, juices, coffee, soda and foods that your sensitive to. After eating do not lie down, allow 3-4 hours before in lie down. And keep the head of bed above 30 degrees to avoid the acid from going up. (3) Hypercholesterolemia: Code(s): E78.00 - Pure hypercholesterolemia, unspecified Plan: Avoid fried foods, chicken skin, eggs, butter margarine, pastries and meat. Be it pork or beef they have a lot of cholesterol last blood work in May was within normal limits. (4) Osteopenia: Comment: Bone density done October 2021 08/05/2024 Code(s): M85.80 - Other specified disorders of bone density and structure, unspecified site Qualifiers: Osteopenia location: multiple sites Qualified Code(s): M85.89 - Other specified disorders of bone density and structure, multiple sites Plan: Discussed about calcium and vitamin-D and other medications that can help protect the bone. (5) Osteoarthritis of right knee: Code(s): M17.11 - Unilateral primary osteoarthritis, right knee Qualifiers: Osteoarthritis type: primary Qualified Code(s): M17.11 - Unilateral primary osteoarthritis, right knee Plan: Patient follows up with ortho and has had injections done. (6) Right leg swelling: Code(s): M79.89 - Other specified soft tissue disorders Plan: X-ray requested but will do ultrasound also, When sitting down elevate the legs, exercise, and support stockings Plan - Labs: August 09, 2024, blood count normal, iron levels within normal limits, liver function tests normal, thyroid function normal, LDL at 102 - Imaging and Procedures: Bone density showed 11% decrease in left femur density; normal spinal measurements - Continue current management of GERD with Omeprazole and dietary adjustments. - Osteopenia: Continue calcium and vitamin D supplementation; discuss bone- strengthening medication options based on patient interest. - Consider fiber supplementation to bulk stools for IBS with predominantly diarrhea, adjust Magnesium intake. - Right leg swelling: Arrange for ultrasound to rule out deep vein thrombosis; consider x-ray of ankle for structural assessment. - Monitor and reevaluate knee osteoarthritis management as needed, consider follow-up with orthopedics if pain persists. - Continue current regimen for hypercholesterolemia with adherence to lifestyle modifications. - Cough management: Consider trial of daily non-sedating antihistamines like Cl aritin or Krista. I discussed with the patient the importance of maintaining health through regular screenings and vaccinations, which are all up to date. For her osteopenia, we talked about potential pharmacologic interventions aside from her calcium and Vitamin D supplementation, weighing the risks and benefits. In relation to her IBS, we reviewed dietary fiber considerations and potential palak fication of magnesium supplementation to mitigate symptoms. We explored the possibility of deep vein thrombosis regarding her right leg swelling and are arranging for a timely ultrasound. I advised continuation of current medications and lifestyle modifications for GERD and hypercholesterolemia. Medication side effects, especially related to [id number] medications, were noted as a point of awareness. Additionally, I will coordinate follow-up for recurring diarrhea and further assessment of thumb discomfort due to potential tendonitis from activity. The need for continuity and regular follow-up with specialist care for her varied concerns, including knee osteoarthritis and chronic right leg swelling, was emphasized. - Continue taking Omeprazole as instructed and aware of trigger foods for GERD. - Increase fiber intake with products like Metamucil or Citrucel and assess magnesium supplementation. - Wear support stockings; monitor for changes in leg swelling. - Follow up with recommended ultrasound and x-ray for right leg assessment. - Use antihistamines like Claritin or Krista daily for cough if needed. - Return for immediate care if there is a sudden increase in leg pain, chest pain, or difficulty breathing. - Schedule follow-up appointment in 3 months to reassess and monitor ongoing symptoms. Orders: Orders US venous duplex LE RT Today M79.89 - Other specified soft tissue disorders Comprehensive Met. Panel Today K58.9 - Irritable bowel syndrome, unspecified Magnesium Today K58.9 - Irritable bowel syndrome, unspecified XR ankle RT 2V Today M79.89 - Other specified soft tissue disorders Complete Blood Count Auto Diff Today K58.9 - Irritable bowel syndrome, unspecified Thyroid Stimulating Hormone Today K58.9 - Irritable bowel syndrome, unspecified Quality Reporting (2019) Depression/Bipolar (159/160/161/177) PHQ-9: Total score: 3 Coding Level of Care Code Medicare Subsequent (G0439) Diagnoses Medicare annual wellness visit, subsequent Z00.00 Gastroesophageal reflux disease without esophagitis K21.9 Esophagitis presence: without esophagitis Hypercholesterolemia E78.00 Osteopenia of multiple sites M85.89 Osteopenia location: multiple sites Primary osteoarthritis of right knee M17.11 Osteoarthritis type: primary Right leg swelling M79.89 Additional Codes ISRAEL-7 Assessment Billing - ISRAEL-7 Assessment Tool: ISRAEL-7 Assessment 91505 ([id number]) PHQ-9 - 46299 - PHQ-9 Billing: Yes ([id number])
--- OUTSIDE RECORDS SUMMARY | 2024-09-26 07:46 | XMS_ITS | Patient Health Record ---
Author Organization [facility] Address [address] [place] [address] Care Team Providers Care Technician'S Helper Name Role Phone Renata Morrison MD Primary Care Provider Mukesh Nichols Jr Unavailable [phone] ALLERGIES Allergen (clinical drug ingredient) Drug/Non Drug Allergy documented on EMR Reaction Allergy Type Onset Date Status milk products (uncoded) Unknown Allergy Active naproxen aleve (uncoded) Unknown Allergy Acti ve aspirin aspirin (uncoded) Unknown Allergy Ac tive Substance with sulfonamide structure and antibacterial mechanism of action (substance) sulfa drugs (uncoded) Unknown Allergy Active Latex latex (uncoded) Unknown Allergy Acti ve REASON FOR REFERRAL No Information MEDICATIONS Medication SIG (Take, Route, Frequency, Duration) Notes Start Date End Date Status Calcium 600 MG 1 tablet with meals Orally Twice a day for 30 day(s) Active Vitamin D 50 MCG (2000 UT) 1 capsule Ora lly Once a day for 30 day(s) Active Vitamin C ER 500 MG 1 capsule Orally twi ce a day Active Potassium 99 MG 1 tablet Orally Once a day for 30 day(s) Active CeleBREX 200 MG 1 capsule with food Orally Once a day Active Omeprazole 20 MG 1 capsule 30 minutes before morning meal Orally every other day Active Allergy 4 MG 1 tablet as needed O rally every 6 hrs Active Imodium Multi-Symptom Relief Active Meclizine HCl 25 MG 1 tablet as needed O rally every 12 hrs Active IMMUNIZATIONS Vaccine Route Administration Date Status Comme nts Influenza Unknown 08/04/2021 Administered Influenza Unknown 08/25/2022 Administered SOCIAL HISTORY Sex Assigned At : Social History Observation Description Sex Assigned At Unknown Alcohol Screen Question Answer Notes Did you have a drink containing alcohol in the p ast year? No Points 0 Interpretation Negative PROBLEMS Problem Type ICD Code Onset Dates Problem Status W/U Status Risk SNOMED Code Notes Problem Gastroesophageal reflux disease without esophagitis (K21.9) Active confirmed 942431949 Problem Abnormal findings in stool (R19.5) Active confirmed 117706355 PLAN OF TREATMENT Pending Test Test Name Order Date GI PANEL 11/25/2022 Future Test Test Name Order Date COLONOSCOPY 06/17/2022 Insurance Providers Payer Name Payer Address Payer Phone Subscriber Number Group Number Insured Name Patient Relationship to Insured Coverage Start Date Coverage End Date [facility] [address] [place] [address] [id number] PRIOR, ELIZABETH Self - patient is the insured MEDICAL (GENERAL) HISTORY Medical History History ICD Code Gastroesophageal reflux disease without esophagitis Irritable bowel syndrome with constipati on Vertigo Arthritis Seasonal allergic rhinitis Osteopenia Colonoscopy 08/07, done to followup posi tive Cologuard, normal exam. Surgical History Surgery Date(Month/Year) appendectomy thoracotomy 2004
--- OUTSIDE RECORDS SUMMARY | 2024-09-26 07:46 | XMS_ITS | Continuity of Care Document ---
Author Name [facility] Organization [facility] Care Team Providers Care Funds Development Director Name Role Phone [facility] Unavailable Unavailable Allergies, Adverse Reactions, Alerts Combined list of allergies from Department of Defense and Veterans Affairs facilities. It does not include entries that were removed or entered in error. Substance Category Reaction Severity Reaction type Status Date Reported Comments Source [facility] Propensity to adverse reactions to drug (finding) Nausea and vomiting, Headache active [facility] [place] Immunizations Combined list of available immunizations from the Department of Defense and Veterans Affairs facilities. Immunization Series Date Given Administered By Site Reaction Lot Number CVX Code Drug Route Delivery Service Driver Status Comments Source COVID-19 (MODERNA), MRNA, LNP-S, PF, 100 MCG/0.5 ML DOSE 2 2020 207 complet ed MOD; [id number]; 1 [facility] [place] [facility] COVID-19 (MODERNA), MRNA, LNP-S, PF, 100 MCG/0.5 ML DOSE 1 2020 207 complet ed MOD; [id number]; 1 [facility] [place] [facility]
== END 2024-09-21 11:52 | disposition home or self-care (01) ==
PROVIDERS: PCP Internal Medicine; Visit Provider Internal Medicine
DX: Z00.00 Encounter for general adult medical examination without abnormal findings (principal); K21.9 Gastro-esophageal reflux disease without esophagitis; E78.00 Pure hypercholesterolemia, unspecified; M85.89 Other specified disorders of bone density and structure, multiple sites; M17.11 Unilateral primary osteoarthritis, right knee; M79.89 Other specified soft tissue disorders

== ENCOUNTER → 2024-09-21 10:55 | Outpatient (BNVA) | payer MEDICARE, SELFPAY | PROVIDERS: PCP Internal Medicine; Visit Provider Internal Medicine | DX: Z00.00 Encounter for general adult medical examination without abnormal findings (principal); K21.9 Gastro-esophageal reflux disease without esophagitis; E78.00 Pure hypercholesterolemia, unspecified; M85.89 Other specified disorders of bone density and structure, multiple sites; M79.89 Other specified soft tissue disorders; M17.11 Unilateral primary osteoarthritis, right knee | CPT/HCPCS: 96127 ==

== ENCOUNTER 2024-09-21 14:21 | Outpatient (REF) | payer MEDICARE, SELFPAY ==
--- NOTE | ~2024-09-21 | XR_ITS ---
EXAMINATION: XR ANKLE, RIGHT CLINICAL INFORMATION: M79.89 - Other specified soft tissue disorders COMPARISON: None available. TECHNIQUE: AP, lateral, and mortise views of the right ankle. FINDINGS: Generalized soft tissue edema is seen throughout the distal calf and ankle. Osseous structures are intact without acute fractures. No suspicious osseous lesions. The joint spaces are well-maintained. There is a serpiginous vascular calcification along the the medial soft tissues of the distal calf XR/XR ankle RT 2V IMPRESSION: No acute osseous process. Soft tissue edema. Electronically signed by: Sylvain Hebert MD 09/21/2024 04:00 PM EST Workstation: [id number]
--- NOTE | ~2024-09-21 | US_ITS ---
EXAMINATION: US TRIPLEX LOWER EXTREMITY, RIGHT CLINICAL INFORMATION: Right lower extremity edema COMPARISON: 03/17/2016 TECHNIQUE: Color-flow triplex imaging with spectral analysis and compression Doppler were performed on the right lower extremity. FINDINGS: Respiratory variation, normal compression and augmented flow are noted throughout the right lower extremity. The visualized common femoral vein, superficial femoral vein, profunda femoral vein, popliteal vein and midcalf peroneal and posterior tibial venous segments show no evidence of deep venous thrombosis. There is no Gonzalez's cyst. Cutaneous edema seen throughout the right calf. The adjacent to the medial malleolus in the ankle, there is a complex cystic mass with internal vascularity measuring 3.3 x 2.2 x 3.8 cm US/US venous duplex LE RT IMPRESSION: 1. No evidence of deep venous thrombosis involving the right lower extremity. 2. Complex cystic mass adjacent to the medial malleolus in the ankle. Electronically signed by: Sylvain Hebert MD 09/21/2024 03:59 PM EST
--- OUTSIDE RECORDS SUMMARY | 2024-09-26 10:18 | XMS_ITS | Continuity of Care Document ---
Author Name [facility] Organization [facility] Care Team Providers Care Motor Carrier Inspector Name Role Phone [facility] Unavailable Unavailable Allergies, Adverse Reactions, Alerts Combined list of allergies from Department of Defense and Veterans Affairs facilities. It does not include entries that were removed or entered in error. Substance Category Reaction Severity Reaction type Status Date Reported Comments Source SULFA DRUGS Propensity to adverse reactions to drug (finding) Nausea and vomiting, Headache [facility] [place] [facility] Immunizations Combined list of available immunizations from the Department of Defense and Veterans Affairs facilities. Immunization Series Date Given Administered By Site Reaction Lot Number CVX Code Drug Backhaul Driver Status Comments Source COVID-19 (MODERNA), MRNA, LNP-S, PF, 100 MCG/0.5 ML DOSE 2 2020 207 complet ed MOD; [id number]; 1 [facility] [place] [facility] COVID-19 (MODERNA), MRNA, LNP-S, PF, 100 MCG/0.5 ML DOSE 1 2020 207 complet ed MOD; [id number]; 1 [facility] [place] [facility]
== END 2024-09-21 14:22 | disposition home or self-care (01) ==
LOC: HO.US 14:21
PROVIDERS: PCP Internal Medicine; Visit Provider Internal Medicine
DX: M79.89 Other specified soft tissue disorders (principal)
CPT/HCPCS: 73600; 93971

== ENCOUNTER 2024-10-23 09:43 | Outpatient (AMB) | payer MEDICARE, SELFPAY ==
--- NOTE | 2024-10-23 09:53 | A.OFFVIS_ITS ---
Vital Signs 10/23/24 10:01 Height 5 ft 8 in Weight 190 lb BMI 28.9 BP 169/79 H Blood Pressure Location Lt brachial Position Sitting Pulse 68 Intake Visit Reasons: Mass~ Rt ankle Intake Note: Patient referred by pcp Dr. Morrison for mass on Rt ankle. Present for 4m. No hx of skin CA. Patient c/o: enlarging, swelling spreading up leg. Denies oozing. Applications Support Specialist Required: No Accompanied by: Self / Same As Patient Allergies aspirin Allergy (Unknown, Verified 10/23/24 09:55) Unknown latex Allergy (Unknown, Verified 10/23/24 09:55) Unknown milk Allergy (Unknown, Verified 10/23/24 09:55) Unknown Sulfa (Sulfonamide Antibiotics) Allergy (Unknown, Verified 10/23/24 09:55) Unknown HPI Comments Details: Patient presents for evaluation of chronic right lower extremity swelling/edema. Patient has an interesting past surgical history. Roughly 47 years ago she had some sort of procedure performed on her right lower extremity regarding the chronic lymphedema which apparently did not work very well. She now presents here with a many year history of chronic right lower extremity swelling. She also has noticed a lump or mass over the last few months time over the right medial malleolar area she wishes to have evaluated. Patient was unclear as to the precise surgery that was performed on her legs but from a historical perspective I remember reading about crazy tissue transfer flaps for lymphedema which have since fallen out of favor because of limited success. I presume she had 1 of these. In the meantime, she had recent x-ray and ultrasound demonstrate no evidence of DVT or any fracture. Soft tissue mass of the right medial ankle area was confirmed on sonogram. Chart was reviewed and patient evaluated [facility] Medical History (Updated 09/21/24 @ 17:39 by Renata Morrison MD) Breast cancer screening by mammogram Localized osteoarthritis of right knee Colon cancer screening Diarrhea Screening for diabetes mellitus Positive colorectal cancer screening using Cologuard test Knee pain, right Plantar fascia syndrome Colonoscopy refused Right hand paresthesia Shingles Collagen vascular disease Myxomatous mitral valve Ulnar nerve palsy Leukopenia GERD (gastroesophageal reflux disease) Thrombocytopenia Osteoarthritis Surgical History (Updated 10/23/24 @ 10:21 by Nick Berumen MD) H/O eye surgery Hx of esophagogastroduodenoscopy Hx of colonoscopy Deficient knowledge of leg surgery History of thoracotomy History of cataract surgery History of tubal ligation History of tonsillectomy History of appendectomy Family History Father Emphysema of lung Diabetes Mother Hypertension CVD (cardiovascular disease) Maternal Grandfather Esophageal cancer Maternal Uncle Esophageal cancer Lung cancer Sister No problems noted. Social History (Updated 09/21/24 @ 11:25 by Renata Morrison MD) Housing: House Alcohol intake: current Alcohol intake frequency: holidays/special occasions only Alcohol type: wine Comment: once Q 2 month 1 glass Patient Tobacco Use Status: Never used Tobacco e-Cigarette/Vaping Use: Never Used Second Hand Smoke Exposure: No Advance Directives Date on File: 07/22/20 service: No Current occupational status: retired Cognitive needs: No Hearing needs: No Vision needs: No Physical Exam Vital Signs: Last Vital Signs Pulse 68 10/23/24 10:01 BP 169/79 H 10/23/24 10:01 BMI result Body Mass Index 28.9 Extrem Other: Patient has marked right lower extremity edema extending from the entire foot up to the knee. She has a longitudinal scar which is treat off at the ankle and at this areas were the roughly 3 x 2 cm soft tissue mass is located. No evidence of lymphangitis or cellulitis. Extremities grossly neurovascularly intact. Difficult to palpate pulses secondary to the marked edema. Contralateral extr emity within normal limits Assessment & Plan Assessment & Plan (1) Mass of soft tissue of right lower extremity: Code(s): M79.89 - Other specified soft tissue disorders Category: Surgical (2) Lymphedema: Code(s): I89.0 - Lymphedema, not elsewhere classified Category: Surgical Plan At present, I think the patient's chronic right lower extremity lymphedema needs to be more formally addressed with vascular surgery. Arrangements were made for this. In the meantime, patient was encouraged to elevate extremity as much as possible which she says she does not like to do, were support hose, and once the lymphedema has been controlled, consideration can be made for excision of the soft tissue mass in the right ankle. At this was performed now, there is high probability that this wound would not heal because of the marked edema of the ankle area leading to wound breakdown and all its attendant issues. Patient understands. All questions answered. Arrangements were made for the vascular consult. Orders: Referrals Vascular Surgery Referral M79.89 - Other specified soft tissue disorders, R22.41 - Localized swelling, mass and lump, right lower limb Coding Level of Care Code New Pt Level 4 (95138) Diagnoses Mass of soft tissue of right lower extremity M79.89 Lymphedema I89.0
[2024-10-23 10:01] VITALS: BP 169/79; PULSE 68; BMI 28.9
--- OUTSIDE RECORDS SUMMARY | 2024-10-23 10:07 | XMS_ITS | Continuity of Care Document ---
Author Name [facility] Organization [facility] Care Team Providers Care Supervisor Lump Room Name Role Phone [facility] Unavailable Unavailable Allergies, Adverse Reactions, Alerts Combined list of allergies from Department of Defense and Veterans Affairs facilities. It does not include entries that were removed or entered in error. Substance Category Reaction Severity Reaction type Status Date Reported Comments Source SULFA DRUGS Propensity to adverse reactions to drug (finding) Nausea and vomiting, Headache [facility] [place] [facility] Immunizations Combined list of available immunizations from the Department of Defense and Veterans Affairs facilities. Immunization Series Date Given Administered By Site Reaction Lot Number CVX Code Drug Chemist Enzymes Status Comments Source COVID-19 (MODERNA), MRNA, LNP-S, PF, 100 MCG/0.5 ML DOSE 2 2020 207 complet ed MOD; [id number]; 1 [facility] [place] [facility] COVID-19 (MODERNA), MRNA, LNP-S, PF, 100 MCG/0.5 ML DOSE 1 2020 207 complet ed MOD; [id number]; 1 [facility] [place] [facility]
== END 2024-10-23 10:10 | disposition home or self-care (01) ==
PROVIDERS: PCP Internal Medicine; Referring Provider Internal Medicine; Visit Provider Surgery
DX: M79.89 Other specified soft tissue disorders (principal); I89.0 Lymphedema, not elsewhere classified
CPT/HCPCS: 99204

== ENCOUNTER → 2024-10-23 09:43 | Outpatient (BNVA) | payer MEDICARE, SELFPAY | PROVIDERS: PCP Internal Medicine; Referring Provider Internal Medicine; Visit Provider Surgery | DX: I89.0 Lymphedema, not elsewhere classified (principal); M79.89 Other specified soft tissue disorders; R22.41 Localized swelling, mass and lump, right lower limb | CPT/HCPCS: 99202 ==

== ENCOUNTER 2024-11-13 10:00 | Outpatient (AMB) | payer MEDICARE, SELFPAY ==
--- NOTE | 2024-11-13 10:46 | MHC.OFFVIS ---
Intake Visit Reasons: Right lower extremity mass Intake Note: Patient presents for right lower extremity mass. Her right leg is swollen , states she gets random electrical shocks . Pain is on and off. Accompanied by: Self / Same As Patient Allergies aspirin Allergy (Unknown, Verified 11/14/24 15:21) Unknown latex Allergy (Unknown, Verified 11/14/24 15:21) Unknown milk Allergy (Unknown, Verified 11/14/24 15:21) Unknown Sulfa (Sulfonamide Antibiotics) Allergy (Unknown, Verified 11/14/24 15:21) Unknown HPI HPI Right lower extremity mass: Details: Very pleasant 74-year-old female presents for evaluation regarding swelling and edema of lower extremities. She reports that this dates back to 1976 where she had a prior debulking procedure and lymph angiogram. She has had persistent swelling of the lower extremities. She has used stocking with minimal relief. She has significant disabling swelling where she can barely walk. Patient denies any previous venous surgery but has had prior lymphatic surgery debulking which may have affected the right lower extremity great saphenous vein. Patient does not have a history of a DVT. Study from 09/21/2024 was negative. Patient denies any history of phlebitis. Trial of compression includes - [id number] They now present for vascular evaluation regarding their varicose veins. [facility] Medical History Breast cancer screening by mammogram Localized osteoarthritis of right knee Colon cancer screening Diarrhea Screening for diabetes mellitus Positive colorectal cancer screening using Cologuard test Knee pain, right Plantar fascia syndrome Colonoscopy refused Right hand paresthesia Shingles Collagen vascular disease Myxomatous mitral valve Ulnar nerve palsy Leukopenia GERD (gastroesophageal reflux disease) Thrombocytopenia Osteoarthritis Surgical History H/O eye surgery Hx of esophagogastroduodenoscopy Hx of colonoscopy Deficient knowledge of leg surgery History of thoracotomy History of cataract surgery History of tubal ligation History of tonsillectomy History of appendectomy Family History Father Emphysema of lung Diabetes Mother Hypertension CVD (cardiovascular disease) Maternal Grandfather Esophageal cancer Maternal Uncle Esophageal cancer Lung cancer Sister No problems noted. Social History (Reviewed 11/14/24 @ 15:20 by ALONSO Hugo Housing: House Alcohol intake: current Alcohol intake frequency: holidays/special occasions only Alcohol type: wine Comment: once Q 2 month 1 glass Patient Tobacco Use Status: Never used Tobacco e-Cigarette/Vaping Use: Never Used Second Hand Smoke Exposure: No Advance Directives Date on File: 07/22/20 service: No Current occupational status: retired Cognitive needs: No Hearing needs: No Vision needs: No Review of Systems Const Reports as per HPI ENT Reports no additional complaints Card Denies chest pain, Denies chest pain at rest and Denies chest pain with activity Resp Denies chest congestion and Denies cough GI Reports no additional complaints Musc Details: pain over varicosities, aching of lower extremities, swelling, cramping, heaviness and tiredness, itching Denies abnormal gait Skin/Breast Reports pruritus and Denies wounds Neuro Reports no additional complaints and Denies abnormal gait Psych Denies no additional complaints Physical Exam Const General: cooperative, healthy appearing and comfortable Orientation/consciousness: oriented to person, oriented to place and oriented to time Neck Carotids: no bruits Chest Chest palpation & inspection: normal inspection of the chest and normal palpation of entire chest wall Resp Effort & Inspection: normal respiratory effort and able to speak in complete sentences Cardio Rate: regular rate Heart sounds: S1 normal heart sound present and S2 normal heart sound present Peripheral pulses: Peripheral pulses 2+ throughout GI Inspection: Yes normal to inspection Skin Other: +3 edema, right greater than left CEAP Classification C4 - skin color changes Ep - Etiology Primary As - superficial veins P - reflux General skin exam: dry skin Neuro General: oriented to person, oriented to place and oriented to time Extrem Right lower extremity: full ROM, normal capillary refill and edema Left lower extremity: full ROM, normal capillary refill and edema Psych Mental Status: mental status grossly normal Assessment & Plan Assessment & Plan (1) Varicose veins of right lower extremity with inflammation: Code(s): I83.11 - Varicose veins of right lower extremity with inflammation Category: Medical Plan: In short patient has significant swelling of the lower extremities. I do believe this is more lymphedema related. I would like to rule out venous disease before treating her for lymphedema. She will follow up with us after testing. (2) Lymphedema: Comment: 1976 - right medial lymphatic debulking procedure along with lymph angiogram. Code(s): I89.0 - Lymphedema, not elsewhere classified Category: Surgical Plan: She does have prior diagnosed lymphatic disease. The patient has been on conservative treatment for at least 3 months with minimal relief. Patient has tried 30 mm of mercury compression garments, elevation, exercise healthy diet and doing manual says self MLD to the best of their ability for over 4 weeks but with no significant relief. She has been compliant with the program but has provided minimal relief. In addition on physical we are noticing hyperpigmentation, lymphorrhea, and hyperplasia. It appears that she has stage 2 lymphedema. She has had prior lymphatic surgery and it does not appear to have provided any relief. We will work her up for venous disease. Should that prove to be negative may require lymphatic pumps. She will follow up with us after testing. (3) Neck pain: Code(s): M54.2 - Cervicalgia Category: Medical Plan: She has pain in her neck in the trapezius muscle on direct palpation. I do believe this is more musculoskeletal in nature. I did reassure her that this was not carotid in nature. Once again she will follow up with us for her lower extremities. Orders: Orders US venous duplex LE BI 1 Week I83.11 - Varicose veins of right lower extremity with inflammation Coding Level of Care Code Est Pt Level 4 (98693) Diagnoses Varicose veins of right lower extremity with inflammation I83.11 Lymphedema I89.0 Neck pain M54.2
--- OUTSIDE RECORDS SUMMARY | 2024-11-13 10:46 | XMS_ITS | Patient Health Record ---
Author Organization [facility] [place] Address [address] [place] [address] Care Team Providers Care Postal Inspector Name Role Phone Renata Morrison Primary Care Provider Unavailabl e Kathy Kelley Unavailable [phone] Allergies Allergen (clinical drug ingredient) Drug/Non Drug Allergy documented on EMR Reaction Allergy Type Onset Date Status sulfamethoxazole / trimethoprim Bactrim migranes Drug Allergy Active Adhesive rash Allergy Active aspirin Aspirin facial dumbness Drug Allergy Active Lactose (Allergy) leg cramps Allergy A ctive Latex Latex rash Allergy Active Milk-related Compounds migranes,vomit ting Drug Allergy Active Substance with sulfonamide structure and antibacterial mechanism of action (substance) Sulfa Antibiotics Unknown Drug Allergy Active Reason For Referral No Information Medications Medication SIG (Take, Route, Frequency, Duration) Notes Start Date End Date Status Imodium Advanced Act devonte Meclizine HCl 25 MG 1 tablet as needed O rally every 12 hrs Active diphenhydrAMINE HCl 25 MG 1 capsule at b edtime as needed Orally Once a day for 30 day(s) Active Vitamin C Active Potassium Active Calcium Active Vitamin D3 Active Celecoxib 200 MG 1 capsule with food Orally Once a day for 30 day(s) Active Omeprazole 20 MG 1 capsule 30 minutes before morning meal Orally Once a day for 30 day(s) Active Social History Tobacco Use: Social History Observation Description Date Details (start date - stop date) Never Smoker NA - NA Tobacco Use/Smoking Question Answer Notes Are you a: nonsmoker Additional Findings: Tobacco Non-User Current no n-smoker Alcohol Screen Question Answer Notes Did you have a drink contain ing alcohol in the past year? Yes How often did you have a dri nk containing alcohol in the past year? Monthly or less (1 point) Points 1 Interpretation Negative Tobacco use other than smoking: Question Answer Notes Are you an other tobacco user? No Problems No Known Problems Plan Of Treatment Pending Test Test Name Order Date [id number] NAIL, 6 OR MORE 11/22/2022 Insurance Providers Payer Name Payer Address Payer Phone Subscriber Number Group Number Insured Name Patient Relationship to Insured Coverage Start Date Coverage End Date [employer] 65 Medicare Preferred [address] [place] [address] [id number] Prior, Mariano Self - patient is the insured Medical (General) History Medical History History ICD Code Vascular disease Reflux ( GERD) Glaucoma Hypercholesterolemia Leukopenia Myxomatous mitral valve osteoarthritis Plantar fasciitis right hand parethesia Shingles ulnar nerve palsy Anemia Back,Hip,and Knee pain Arthritis Broken bones Cataracts Headaches/Migraines Osteopenia chronic sinusitis Measles Chicken pox Transfusions Knee Pain Surgical History Surgery Date(Month/Year) leg surgery appendectomy cataract surgery thoracotomy tonsillectomy tubal ligation
--- OUTSIDE RECORDS SUMMARY | 2024-11-13 10:46 | XMS_ITS | Patient Health Record ---
Author Organization [facility] Address [address] [place] [id number] Care Team Providers Care Licensed Practical Nurse Instructor Name Role Phone Po Renata ACEVES Primary Care Provider Mukesh Nichols Jr Unavailable ALLERGIES Allergen (clinical drug ingredient) Drug/Non Drug Allergy documented on EMR Reaction Allergy Type Onset Date Status milk products (uncoded) Unknown Allergy Active aleve (uncoded) Unknown Allergy Acti ve aspirin [...] reflux disease without esophagitis (K21.9) Active confirmed 659600107 Problem Abnormal findings in stool (R19.5) Active confirmed [id number] PLAN OF TREATMENT Pending Test Test Name Order Date GI PANEL 11/25/2022 Future Test Test Name Order Date COLONOSCOPY 06/17/2022 Insurance Providers Payer Name Payer Address Payer Phone Subscriber Number Group Number Insured Name Patient Relationship to Insured Coverage Start Date Coverage End Date [facility] [address] [place] [address] [phone] [id number] PRIOR, ELIZABETH Self - patient is the insured MEDICAL (GENERAL) HISTORY Medical History History ICD Code Gastroesophageal reflux disease without esophagitis Irritable bowel syndrome with constipati on Vertigo Arthritis Seasonal allergic rhinitis Osteopenia Colonoscopy 08/07, done to followup posi tive Cologuard, normal exam. Surgical History Surgery Date(Month/Year) appendectomy thoracotomy 2004
--- OUTSIDE RECORDS SUMMARY | 2024-11-13 10:46 | XMS_ITS | Continuity of Care Document ---
Author Name [facility] Organization [facility] Care Team Providers Care Service Center Technician Name Role Phone [facility] Unavailable Unavailable Allergies, Adverse Reactions, Alerts Combined list of allergies from Department of Defense and Veterans Affairs facilities. It does not include entries that were removed or entered in error. Substance Category Reaction Severity Reaction type Status Date Reported Comments Source SULFA DRUGS Propensity to adverse reactions to drug (finding) Nausea and vomiting, Headache active 1 [facility] [place] [facility] Immunizations Combined list of available immunizations from the Department of Defense and Veterans Affairs facilities. Immunization Series Date Given Administered By Site Reaction Lot Number CVX Code Drug Area Relief Pilot Status Comments Source COVID-19 (MODERNA), MRNA, LNP-S, PF, 100 MCG/0.5 ML DOSE 2 2020 207 complet ed MOD; [id number]; 1 [facility] [place] [facility] COVID-19 (MODERNA), MRNA, LNP-S, PF, 100 MCG/0.5 ML DOSE 1 2020 207 complet ed MOD; [id number]; 1 [facility] [place] [facility]
== END 2024-11-13 11:24 | disposition home or self-care (01) ==
PROVIDERS: PCP Internal Medicine; Visit Provider Surgery Vascular Surgery
DX: I83.11 Varicose veins of right lower extremity with inflammation (principal); I89.0 Lymphedema, not elsewhere classified; M54.2 Cervicalgia
CPT/HCPCS: 99214

== ENCOUNTER → 2024-11-13 10:00 | Outpatient (BNVA) | payer MEDICARE, SELFPAY | PROVIDERS: PCP Internal Medicine; Visit Provider Surgery Vascular Surgery | DX: I83.11 Varicose veins of right lower extremity with inflammation (principal); I89.0 Lymphedema, not elsewhere classified; M54.2 Cervicalgia | CPT/HCPCS: 99212 ==

== ENCOUNTER 2024-11-14 15:09 | Outpatient (AMB) | payer MEDICARE, SELFPAY ==
--- NOTE | 2024-11-14 15:20 | A.OFFPC_ITS ---
Vital Signs 3 11/14/24 15:21 Height 5 ft 8 in Weight 190 lb 2 oz BMI 28.9 BP 110/66 Blood Pressure Location Lt brachial Position Sitting Pulse 63 Pulse Source Pulse Oximeter Temp 96.9 F Temp Source Skin Pulse Oximetry (%) 99 Oxygen Delivery Method Room Air Intake Visit Reasons: neck pain both sides Intake Note: Patient is here to follow up on neck pain in both sides and lump on right side of neck, ongoing for almost a month. Target Network Analyst Required: No Train Electronic Technician: Not Required per policy Accompanied by: Self / Same As Patient Allergies aspirin Allergy (Unknown, Verified 11/14/24 15:21) Unknown latex Allergy (Unknown, Verified 11/14/24 15:21) Unknown milk Allergy (Unknown, Verified 11/14/24 15:21) Unknown Sulfa (Sulfonamide Antibiotics) Allergy (Unknown, Verified 11/14/24 15:21) Unknown Tobacco use date assessed: 11/14/24 Fall risk assessment: No Falls in past year Last assessed Fall Risk: 11/14/24 Dental Screening Dental Screen Date: 11/14/24 Did you have a dental visit in the last 12 months?: Yes Did you have a dental problem in the last 6 months where you did not have access to dental care?: No Was dental information given to patient?: Patient has dentist HPI neck pain both sides 2 HPI0 Details 74-year-old female with past medical his tory of current, hypercholesterolemia, osteopenia, peripheral vascular disease, IBS last seen by Dr. Morrison 09/2024 coming in for acute problem. Patient was seen by general surgeon 10/23/2024 for right lower extremity swelling and soft tissue mass of the right medial ankle advised to follow up with vascular surgery.? Patient was seen by vascular surgery 11/13/2024 and note is still pending.? Patient tells us today she began having left-sided neck pain that began in the beginning of October that then spread to the middle and right side of the neck throughout the month. She feels her pain and range of motion has been worsening throughout the month and has a worsening stiffness. Also more recently she has noticed some swelling of the base of the right side of the neck. [facility] Medical History Breast cancer screening by mammogram Localized osteoarthritis of right knee Colon cancer screening Diarrhea Screening for diabetes mellitus Positive colorectal cancer screening using Cologuard test Knee pain, right Plantar fascia syndrome Colonoscopy refused Right hand paresthesia Shingles Collagen vascular disease Myxomatous mitral valve Ulnar nerve palsy Leukopenia GERD (gastroesophageal reflux disease) Thrombocytopenia Osteoarthritis Surgical History H/O eye surgery Hx of esophagogastroduodenoscopy Hx of colonoscopy Deficient knowledge of leg surgery History of thoracotomy History of cataract surgery History of tubal ligation History of tonsillectomy History of appendectomy Family History Father Emphysema of lung Diabetes Mother Hypertension CVD (cardiovascular disease) Maternal Grandfather Esophageal cancer Maternal Uncle Esophageal cancer Lung cancer Sister No problems noted. Social History Housing: House Alcohol intake: current Alcohol intake frequency: holidays/special occasions only Alcohol type: wine Comment: once Q 2 month 1 glass Patient Tobacco Use Status: Never used Tobacco e-Cigarette/Vaping Use: Never Used Second Hand Smoke Exposure: No Advance Directives Date on File: 07/22/20 service: No Current occupational status: retired Cognitive needs: No Hearing needs: No Vision needs: No Questionnaire PHQ-9 Over the last 2 weeks, how often have you been bothered by any of the following problems? 1. Little interest or pleasure in doing things: not at all 2. Feeling down, depressed, or hopeless: not at all 3. Trouble falling or staying asleep, or sleeping too much: not at all 4. Feeling tired or having little energy: not at all 5. Poor appetite or overeating: not at all 6. Feeling bad about yourself - or that you are a failure or have let yourself or your family down: not at all 7. Trouble concentrating on things, such as reading the newspaper or watching television: not at all 8. Moving or speaking so slowly that other people could have noticed. Or the opposite - being so fidgety or restless that you have been moving around a lot more than usual: not at all 9. Thoughts that you would be better off or of hurting yourself in some way: not at all Total score: 0 Depression Screening Interpretation: Negative Depression Screening Done: Yes Source: Developed by Drs. David Velez, Fortino Moreno and colleagues, with an educational deja from [employer]. Thrive Questionnaire Date Thrive assessed: 11/14/24 I am a: Patient What is your living situation today?: I have a steady place to live Within the past 12 months, did the food you bought not last and you didn't have the money to get more?: Never true Within the past 12 months, did you worry whether your food would run out before you got money to buy more?: Never true Do you have trouble paying for medicines?: No Do you have trouble getting transportation to medical appointments?: No Do you have trouble paying your heating and electricity bill?: No Do you have trouble taking care of your child, family member or friend?: No Do you have trouble with day-to-day activities such as bathing, preparing meals, shopping, managing finances, etc.?: No Are you currently unemployed and looking for a job?: No Are you interested in more education?: No Please select the resources that you would like help with: None Currently or been in a relationship where the following occur: No concerns reported THRIVE Score: 0 AUDIT C Alcohol Use Questionnaire (AUDIT-C) 1. How often do you have a drink containing alcohol?: Monthly or less 2. How many drinks containing alcohol do you have on a typical day when you are drinking?: 1 or 2 Total Score: 1 ISRAEL-7 AMB Questionnaire ISRAEL-7 Date ISRAEL - 7 assessed: 11/14/24 Feeling nervous, anxious, or on edge: 0 = Not at all Not being able to stop or control worryin = Not at all Worrying too much about different things: 0 = Not at all Trouble relaxin = Not at all Being so restless that it is hard to sit still: 0 = Not at all Becoming easily annoyed or irritable: 0 = Not at all Feeling afraid as if something awful might happen: 0 = Not at all Total ISRAEL-7 score (0-4 normal; 5-9 mild; 10-14 moderate; 15-21 severe): 0 Source: Developed by Alfreda Rajan Kurt Kroenke and colleagues, with an educational deja from [employer]. Review of Systems Const Denies body aches, Denies chills, Denies fever(s), Denies headache(s) and Denies poor appetite Eyes Reports no additional complaints ENT Details: Foreign body feeling when swallowing without any difficulty or painful swallowing Denies dysphagia, Denies dizziness, Denies headache(s) and Denies odynophagia Card Denies chest pain, Denies lightheadedness and Denies dyspnea Resp Denies cough and Denies dyspnea GI Reports no additional complaints, Denies dysphagia and Denies odynophagia Reports no additional complaints Musc Details: Pain and limited range of motion of the neck Denies abnormal gait Skin/Breast Reports system reviewed and no additional complaints, except as documented Neuro Denies abnormal gait, Denies dizziness and Denies headache(s) Psych Reports no additional complaints Physical exam (Primary Care) Vital Signs: Last Vital Signs Temp 96.9 F 11/14/24 15:21 Pulse 63 11/14/24 15:21 BP 110/66 11/14/24 15:21 Pulse Ox 99 11/14/24 15:21 Oxygen Delivery Method Room Air 11/14/24 15:21 BMI result Body Mass Index 28.9 Tobacco/Smoking Status: Tobacco use Status Tobacco use date assessed 11/14/24 11/14/24 15:29 Patient Tobacco Use Status Never used Tobacco 11/14/24 15:29 e-Cigarette/Vaping Use Never Used 11/14/24 15:29 PHQ-9: PHQ-9 Score PHQ-9: Total score 0 11/14/24 15:36 Depression Screening Interpretation: Negative Thrive Assessment: Date of Thrive Assessment Date Thrive assessed 11/14/24 11/14/24 15:29 Currently or been in a relationship where the following occur: No concerns reported Const General: cooperative, healthy appearing, comfortable and no acute distress Orientation/consciousness: patient oriented x3 HENMT Head: Yes normocephalic Ears: hearing grossly normal bilaterally General nose exam: Normal external nose present Eyes General: appearance normal, both eyes and all related structures Conjunctivae: conjunctivae normal Neck Other: Tenderness to palpation over bilateral aspect of the neck in the SCM muscle distribution Neck: Yes full ROM and Yes no lymphadenopathy Neck images: 2 1. Soft tissue swelling without any palpable masses. Nontender Resp Effort & Inspection: normal respiratory effort Auscultation: clear to auscultation bilaterally, no crackles, no rales, no rhonchi and no wheezes Cardio Rate: regular rate Rhythm: regular rhythm Skin General skin exam: no rashes or lesions noted Neuro General: patient oriented x3 Gait exam (Neuro): Normal gait present Extrem General: Yes normal to inspection, Yes full ROM and No edema Psych Affect: normal affect Attitude: cooperative Insight: Good insight present (Psych) Judgement: Good judgement present (Psych) Coding Level of Care Code Est Pt Level 3 (31406) Diagnoses Soft tissue swelling R22.9 Neck strain S16.1XXA Assessment & Plan Assessment & Plan (1) Soft tissue swelling: Code(s): R22.9 - Localized swelling, mass and lump, unspecified Category: Medical Plan: Patient having soft tissue swelling of the right side of the anterior aspect of the neck. It began shortly after her next pain began. Ordered for neck ultrasound as well as chest x-ray for further evaluation. (2) Neck strain: Code(s): S16.1XXA - Strain of muscle, fascia and tendon at neck level, initial encounter Category: Medical Plan: Patient complaining of neck pain that finished to be on the right side and has spread to the left side. Presentation most consistent with neck strain advised patient to use Tylenol ibuprofen as well as heating pads as needed for pain. Given muscle relaxer at bedtime for nighttime pain. Advised very gentle stretching and gentle [id number] exercises. Referral placed to physical therapy Plan This note was constructed using voice recognition software. While every effort has been made to ensure accuracy and supervisor tan room, still areas may have been included sometimes these areas may affect the content or meeting of the given symptoms. Total time spent caring for the patient today was 20 minutes. This includes time spent before the visit reviewing the chart, time spent during the visit, and time spent after the visit and documentation. Orders: Orders 2 PT Evaluation and Treatment Today S16.1XXA - Strain of muscle, fascia and tendon at neck level, initial encounter US soft tiss head and/or neck Today R22.9 - Localized swelling, mass and lump, unspecified XR chest 2V Today R22.9 - Localized swelling, mass and lump, unspecified Medications: New 2 lidocaine 4% (Aspercreme (lidocaine)) 1 patch topical DAILY PRN 30 ea 0RF pain Refilled 2 cyclobenzaprine 5 mg PO BEDTIME PRN 30 tabs 0RF muscle spasm S16.1XXA - Strain of muscle, fascia and tendon at neck level, initial encounter
[2024-11-14 15:21] VITALS: BP 110/66; PULSE 63; TEMP 36.1; O2SAT 99; BMI 28.9
--- OUTSIDE RECORDS SUMMARY | 2024-11-14 17:11 | XMS_ITS | Continuity of Care Document ---
Author Name [facility] Organization [facility] Care Team Providers Care Cow Tender Name Role Phone [facility] Unavailable Unavailable Allergies, Adverse Reactions, Alerts Combined list of allergies from Department of Defense and Veterans Affairs facilities. It does not include entries that were removed or entered in error. Substance Category Reaction Severity Reaction type Status Date Reported Comments Source SULFA DRUGS Propensity to adverse reactions to drug (finding) Nausea and vomiting, Headache [facility] [place] [facility] Immunizations Combined list of available immunizations from the Department of Defense and Veterans Affairs facilities. Immunization Series Date Given Administered By Site Reaction Lot Number CVX Code Drug Visual Merchandising Specialist Status Comments Source COVID-19 (MODERNA), MRNA, LNP-S, PF, 100 MCG/0.5 ML DOSE 2 2020 207 complet ed MOD; [id number]; 1 [facility] [place] [facility] COVID-19 (MODERNA), MRNA, LNP-S, PF, 100 MCG/0.5 ML DOSE 1 2020 207 complet ed MOD; [id number]; 1 [facility] [place] [facility]
--- OUTSIDE RECORDS SUMMARY | 2024-11-14 17:11 | XMS_ITS | Patient Health Record ---
Author Organization [facility] Address [address] [place] [address] Care Team Providers Care Tong Setter Name Role Phone Renata Morrison Primary Care Provider Unavailabl e Kathy Kelley Unavailable [phone] Allergies Allergen (clinical drug ingredient) Drug/Non Drug [...] Treatment Pending Test Test Name Order Date [id number] NAIL, 6 OR MORE 11/22/2022 Insurance Providers Payer Name Payer Address Payer Phone Subscriber Number Group Number Insured Name Patient Relationship to Insured Coverage Start Date Coverage End Date BlueCare 65 Medicare Preferred [address] [place] [address] [id number] 2 Prior, Mariano Self - patient is [...]
--- OUTSIDE RECORDS SUMMARY | 2024-11-14 17:12 | XMS_ITS | Patient Health Record ---
Author Organization [facility] Address [address] [place] [id number] Care Team Providers Care Real Estate Officer Name Role Phone Po Renata ACEVES Primary [...] reflux disease without esophagitis (K21.9) Active confirmed [id number] Problem Abnormal findings in stool (R19.5) Active confirmed [id number] PLAN OF TREATMENT Pending Test Test Name Order Date GI PANEL 11/25/2022 Future Test Test Name Order Date COLONOSCOPY 06/17/2022 Insurance Providers Payer Name Payer Address Payer Phone Subscriber Number Group Number Insured Name Patient Relationship to Insured Coverage Start Date Coverage End Date [facility] [address] [place] [address] [phone] [id number] PRIOR, ELIZABETH Self - patient is the insured MEDICAL (GENERAL) HISTORY Medical History History ICD Code Gastroesophageal reflux disease without esophagitis Irritable bowel syndrome with constipati on Vertigo Arthritis Seasonal allergic rhinitis Osteopenia Colonoscopy 08/07, done to followup posi tive Cologuard, normal exam. Surgical History Surgery Date(Month/Year) appendectomy thoracotomy 2004
== END 2024-11-14 16:02 | disposition home or self-care (01) ==
PROVIDERS: PCP Internal Medicine
DX: R22.9 Localized swelling, mass and lump, unspecified (principal); S16.1XXA Strain of muscle, fascia and tendon at neck level, initial encounter

== ENCOUNTER → 2024-11-14 15:09 | Outpatient (BNVA) | payer MEDICARE, SELFPAY | PROVIDERS: PCP Internal Medicine | DX: R22.9 Localized swelling, mass and lump, unspecified (principal); S16.1XXD Strain of muscle, fascia and tendon at neck level, subsequent encounter | CPT/HCPCS: 99212 ==

== ENCOUNTER → 2024-11-21 07:32 | Outpatient (REF) | payer MEDICARE, SELFPAY ==
--- NOTE | ~2024-11-21 | XR_ITS ---
EXAMINATION: XR CHEST CLINICAL INFORMATION: R22.9 - Localized swelling, mass and lump, unspecified COMPARISON: None available. TECHNIQUE: 2 views of the chest were obtained. FINDINGS: The cardiac, hilar, and mediastinal contours are normal. There is oval mass with subtle lobulation abutting the left hilum measuring 5.7 x 4.0 x 3.3 cm (AP, TRV, CC). Just lateral to this is a subtle oval nodule measuring 1.1 cm. In the right base there is a 1.1 cm oval nodule, possibly nipple shadow although more likely additional nodule. 8 mm oval nodule suspected overlying the superior left hilum. There is biapical pleural scarring/thickening. The lungs are hyperinflated and hyperlucent, however are otherwise clear bilaterally. There is no pneumothorax or pleural effusion. There is no focal osseous or soft tissue abnormality. There are spinal degenerative changes. XR/XR chest 2V IMPRESSION: 1. Several oval nodules within the lungs, largest abutting the left hilum measuring 5.7 x 4.0 x 3.3 cm. Findings are suspicious. CT recommended. 2. No effusions. Lungs otherwise clear aside from hyperaeration and COPD. Request made for urgent fax to be sent to the ordering provider. 8:29 AM, 11/21/2024. Electronically signed by: Srini Stephenson MD 11/21/2024 08:29 AM [facility]
--- NOTE | ~2024-11-21 | XR_ITS ---
EXAMINATION: XR CERVICAL SPINE CLINICAL INFORMATION: M54.2 - Cervicalgia COMPARISON: None available. TECHNIQUE: 3 views of the cervical spine were obtained. FINDINGS: Trace levoconvex scoliosis, possibly positional. Straightening of the normal lordosis with minimal reversal centered at C4. No fractures, compression deformities, traumatic subluxation, or suspicious bone lesion. There is a 2 mm degenerative anterolisthesis of C3 on C4. There is a 2 mm degenerative retrolisthesis C5 on C6. Subtle degenerative anterolisthesis C7 on T1. Severe disc degeneration present C4-5, C5-6, C6-7. Associated sclerotic endplate changes and osteophytic spurring. Normal facet alignment. Multilevel bilateral hypertrophic degenerative facet and uncinate changes spanning C3-C7. There is mild prominence of the prevertebral soft tissues especially at the C1-2 level, of uncertain etiology. Lung apices demonstrate biapical scarring. XR/XR cervical spine 2V IMPRESSION: 1. Advanced spondylosis most significant spanning C4-C7. 2. No acute bony abnormalities. 3. Mild soft tissue prominence prevertebral soft tissues, especially at the C1-2 level. Consider correlating with soft tissue neck CT with contrast. Electronically signed by: Srini Stephenson MD 11/21/2024 08:34 AM [facility]
--- OUTSIDE RECORDS SUMMARY | 2024-11-21 07:35 | XMS_ITS | Continuity of Care Document ---
Author Name [facility] Organization [facility] Care Team Providers Care Employee Communications Intern Name Role Phone [facility] Unavailable Unavailable Allergies, Adverse Reactions, Alerts Combined list of allergies from Department of Defense and Veterans Affairs facilities. It does not include entries that were removed or entered in error. Substance Category Reaction Severity Reaction type Status Date Reported Comments Source SULFA DRUGS Propensity to adverse reactions to drug (finding) Nausea and vomiting, Headache active 1 [facility] [place] [facility] Immunizations Combined list of available immunizations from the Department of Defense and Veterans Affairs facilities. Immunization Series Date Given Administered By Site Reaction Lot Number CVX Code Drug Log Hooker Status Comments Source COVID-19 (MODERNA), MRNA, LNP-S, PF, 100 MCG/0.5 ML DOSE 2 2020 207 complet ed MOD; [id number]; 1 [facility] [place] [facility] COVID-19 (MODERNA), MRNA, LNP-S, PF, 100 MCG/0.5 ML DOSE 1 2020 207 complet ed MOD; [id number]; 1 [facility] [place] [facility]
== END | disposition home or self-care (01) ==
LOC: HO.XRAY 07:32
PROVIDERS: PCP Internal Medicine
DX: M54.2 Cervicalgia (principal); R22.9 Localized swelling, mass and lump, unspecified
CPT/HCPCS: 71046; 72040

== ENCOUNTER → 2024-11-21 07:37 | Outpatient (BNV) | payer MEDICARE, SELFPAY | PROVIDERS: PCP Internal Medicine; Visit Provider Radiology Diagnostic Radiology | DX: R91.1 Solitary pulmonary nodule (principal); J44.9 Chronic obstructive pulmonary disease, unspecified; M47.892 Other spondylosis, cervical region; R22.1 Localized swelling, mass and lump, neck | CPT/HCPCS: 71046; 72040 ==

== ENCOUNTER 2024-11-23 11:47 | Outpatient (REF) | payer MEDICARE, SELFPAY ==
--- OUTSIDE RECORDS SUMMARY | 2024-11-23 12:46 | XMS_ITS | Continuity of Care Document ---
Author Name [facility] Organization [facility] Care Team Providers Care Composite Worker Name Role Phone [facility] Unavailable Unavailable Allergies, Adverse Reactions, Alerts Combined list of allergies from Department of Defense and Veterans Affairs facilities. It does not include entries that were removed or entered in error. Substance Category Reaction Severity Reaction type Status Date Reported Comments Source SULFA DRUGS Propensity to adverse reactions to drug (finding) Nausea and vomiting, Headache active 1 [facility] [place] [facility] Immunizations Combined list of available immunizations from the Department of Defense and Veterans Affairs facilities. Immunization Series Date Given Administered By Site Reaction Lot Number CVX Code Drug Scout Sniper Status Comments Source COVID-19 (MODERNA), MRNA, LNP-S, PF, 100 MCG/0.5 ML DOSE 2 2020 207 complet ed MOD; [id number]; 1 [facility] [place] [facility] COVID-19 (MODERNA), MRNA, LNP-S, PF, 100 MCG/0.5 ML DOSE 1 2020 207 complet ed MOD; [id number]; 1 [facility] [place] [facility]
--- OUTSIDE RECORDS SUMMARY | 2024-11-23 12:46 | XMS_ITS | Patient Health Record ---
Author Organization [facility] [place] Address [address] [place] [address] Care Team Providers Care Ski Edge Painter Name Role Phone Renata Morrison Primary Care Provider Unavailabl e Kathy Kelley Unavailable [phone] Allergies Allergen (clinical drug ingredient) Drug/Non Drug [...] Treatment Pending Test Test Name Order Date [id number] NAIL, 6 OR MORE 11/22/2022 Insurance Providers Payer Name Payer Address Payer Phone Subscriber Number Group Number Insured Name Patient Relationship to Insured Coverage Start Date Coverage End Date BlueCare 65 Medicare Preferred [address] [place] [address] [id number] 2 Prior, Mariano Self - patient is [...]
--- OUTSIDE RECORDS SUMMARY | 2024-11-23 12:46 | XMS_ITS | Patient Health Record ---
Author Organization [facility] Address [address] [place] [address] Care Team Providers Care Drapery Supervisor Name Role Phone Po Renata ACEVES Primary [...] reflux disease without esophagitis (K21.9) Active confirmed [id number] Problem Abnormal findings in stool (R19.5) Active confirmed [id number] PLAN OF TREATMENT Pending Test Test Name Order Date GI PANEL 11/25/2022 Future Test Test Name Order Date COLONOSCOPY 06/17/2022 Insurance Providers Payer Name Payer Address Payer Phone Subscriber Number Group Number Insured Name Patient Relationship to Insured Coverage Start Date Coverage End Date [facility] [address] [place] [address] [phone] [id number] PRIOR, ELIZABETH Self - patient is the insured MEDICAL (GENERAL) HISTORY Medical History History ICD Code Gastroesophageal reflux disease without esophagitis Irritable bowel syndrome with constipati on Vertigo Arthritis Seasonal allergic rhinitis Osteopenia Colonoscopy 08/07, done to followup posi tive Cologuard, normal exam. Surgical History Surgery Date(Month/Year) appendectomy thoracotomy 2004
[2024-11-23 14:58] LABS: Alanine Aminotransferase 14 U/L (0-31); Albumin Level 4.1 g/dL (3.5-5.0); Alkaline Phosphatase 83 U/L (39-117); Anion Gap 13 (12-20); Aspartate Amino Transferase 25 U/L (5-31); Bilirubin Total 0.4 mg/dL (0.0-1.0); Blood Urea Nitrogen 15 mg/dL (9-16); Calcium 9.9 mg/dL (8.4-10.2); Carbon Dioxide 28 mmol/L (22-29); Chloride 105 mmol/L (96-108); Estimated Glomerular Filt Rate > 60; Glucose Random 84 mg/dL (60-115); Potassium 4.2 mmol/L (3.3-5.1); Sodium 142 mmol/L (135-145)
== END 2024-11-23 11:48 | disposition home or self-care (01) ==
LOC: HO.WFDLDS 11:47
DX: E78.00 Pure hypercholesterolemia, unspecified (principal); K21.9 Gastro-esophageal reflux disease without esophagitis; R22.1 Localized swelling, mass and lump, neck
CPT/HCPCS: 36415; 80053

== ENCOUNTER → 2024-11-23 13:16 | Outpatient (BNV) | payer MEDICARE, SELFPAY | PROVIDERS: PCP Internal Medicine; Visit Provider Nurse Practitioner Family | DX: R22.1 Localized swelling, mass and lump, neck (principal) | CPT/HCPCS: 99214 ==

== ENCOUNTER 2024-12-04 14:08 | Inpatient (IN) | payer MEDICARE, SELFPAY ==
--- NOTE | ~2024-12-04 | US_ITS ---
CLINICAL HISTORY: pain swelling, just dx w CA mets Venous duplex ultrasound bilateral lower extremity Comparison: X-rays of the right ankle from 12/04/2024. Findings: The visualized deep veins are fully compressible with normal Doppler color flow and spectral tracings. Abnormal soft tissues including medial to the right ankle with complex solid and cystic components measuring 4.5 x 3.8 x 2.6 cm by ultrasound. This is concerning for soft tissue component of the neoplasm given the abnormal erosion on the comparison x-rays. Associated vascular flow is demonstrated confirming soft tissue component and again concerning for neoplasm. No MRI of the ankle available for review at this time. IMPRESSION: 1. Negative for bilateral lower extremity deep vein thrombosis. 2. Please refer to comparison x-rays of the right ankle for concern for neoplasm and aggressive appearing lytic lesion of distal tibia. Soft tissue component measures up to 4.5 cm by ultrasound. This document has been electronically signed by: Se Urbina MD on 12/05/2024 01:46:07
--- NOTE | ~2024-12-04 | XR_ITS ---
CLINICAL HISTORY: lump in velma, possible liposarcoma? 3 view right ankle Comparison: X-rays of the right ankle from 09/21/2024. Findings: Aggressive lucency of the erosion of the distal tibia metaphysis with medial cortex involvement and extension towards the medial malleolus measures 2.1 cm (previously 1.7 cm. Adjacent soft tissue abnormalities nonspecific and can be seen with soft tissue mass. Proximal soft tissue calcifications are nonspecific and not significantly changed. Mild worsening osteoarthritis of the imaged ankle and subtalar joints. No new fracture or dislocation. IMPRESSION: 1. Enlargement of the aggressive lucency at medial cortex of the distal tibia concerning for neoplasm. 2. Mild osteoarthritis of the imaged ankle. This document has been electronically signed by: Se Urbina MD on 12/04/2024 21:55:40
--- NOTE | ~2024-12-04 | US_ITS ---
Ultrasound-guided biopsy and aspiration of the right ankle soft tissue mass. History: Right ankle soft tissue mass. Lung mass and adrenal mass on imaging. Procedure: Ultrasound-guided biopsy and aspiration of the right ankle soft tissue mass Risks and benefits and possible complications were discussed with the patient and consent form was signed. The right ankle was prepped and draped in usual sterile fashion. 1% lidocaine was used for anesthesia. A 17-gauge coaxial needle was inserted through the skin and soft tissues and into the solid portion of the mass. A total of 5, 18-gauge cores were performed and placed in formalin and sent for pathology. The coaxial was then directed into the cystic portion of the mass. 20 cc of nonclotting blood tinged fluid was aspirated and sent for cytology. Permanent ultrasound images were archived. The needle was then removed. The patient tolerated the procedure well. This procedure was performed by Quinn Galindo PA-C, and directly supervised by Dr. Moreno. US/US biopsy lymph node Impression: Ultrasound-guided biopsy and aspiration of the right ankle soft tissue mass. Electronically signed by: Deven Ghotra MD 12/25/2024 03:09 PM EDT
--- NOTE | ~2024-12-04 | CT_ITS ---
CLINICAL HISTORY: r o malignancy CT abdomen and pelvis with contrast Comparison: CT/ME/SR - CT ANGIO HEAD NECK - 12/04/24 17:[address]/SR - CT CHEST W IV CON - 12/04/24 17:28 EST Findings: Pulmonary nodules measure up to 1.0 cm. Ground-glass opacity at the left lung base. No cholelithiasis visualized on CT. There is gallbladder wall thickening. 1.0 cm fat attenuation lesion in the right lobe of the liver. 2.7 x 3.3 x 2.9 cm lesion in the left adrenal gland with adjacent stranding. The fat plane between lesion the left kidney is absent. Bilateral renal cysts. The kidneys are excreting contrast. There is contrast in the bladder. The other solid organs are unremarkable. No bowel wall thickening or dilation. The appendix is not visualized. No secondary signs of acute appendicitis. No aneurysm. Mild calcified atherosclerotic disease. No lymphadenopathy. No ascites. No acute osseous abnormality. No osseous lesion. Impression: 3.3 cm lesion in the left adrenal gland, presumed malignant. Primary malignancy versus metastatic disease. The differential diagnosis for a primary malignancy of the left adrenal gland with fat containing metastatic lesions includes adrenal cortical carcinoma. No evidence of renal cell carcinoma; the fat plane between the adrenal lesion and the left kidney is lost, however the lesion is favored to originate from the adrenal gland with invasion of the left kidney. Adjacent stranding could be secondary to hemorrhage, edema or extension of malignancy. A liposarcoma is not identified, however may still be considered. Tissue sampling may be helpful to diagnose the primary tumor. Nonemergent workup is recommended. There is a fat attenuation 1.0 cm lesion in the liver which is favored to be metastatic disease. Pulmonary nodules measuring up to 1.0 cm, metastatic disease. Ground-glass opacity at the left lung base could be secondary to edema or infection. This document has been electronically signed by: Michaela Coyne MD on 12/04/2024 21:05:27
--- NOTE | ~2024-12-04 | CT_ITS ---
CLINICAL HISTORY: CXR feb concerning for nodules CT chest with contrast Comparison: CR/SR - XR CHEST 2V - 11/21/24 07:52 EST Findings: No mediastinal mass or lymphadenopathy. Thyroid nodules measure up to 3.9 cm in the right lobe. No cardiomegaly or calcified coronary artery disease. Enlargement of the main pulmonary artery which measures 3.9 cm. Enlargement of the pulmonary artery can be seen in the setting of pulmonary arterial hypertension. Normal size thoracic aorta. Trace calcified atherosclerotic disease. There is a fat attenuation mass centered upon the left major fissure measuring 4.8 x 4.9 x 4.4 cm. There are bilateral pulmonary nodules which also measure fat attenuation, measuring up to 1.0 cm. There is a mild amount of ground-glass opacity adjacent to the left sided mass which is present in upper and lower lobes. Mild biapical scarring. No pneumothorax or pleural effusion. No acute osseous or soft tissue abnormality. No lytic lesion or pathologic fracture. No acute pathology in the imaged portion of the upper abdomen. Small hiatal hernia. Subcentimeter low attenuating lesion in the liver which is too small to characterize. Left adrenal mass measuring 3.0 x 3.2 x 3.4 cm with surrounding fat stranding. Impression: 4.9 cm fat attenuation mass centered upon the left major fissure with bilateral fat attenuation pulmonary nodules measuring up to 1.0 cm. Metastatic disease is favored, such as liposarcoma or renal cell carcinoma. Ground-glass opacity in the left lung adjacent to the mass is favored to be secondary to edema. Developing infection may also be considered. 3.4 cm left adrenal mass, presumed metastatic disease. Surrounding stranding could be secondary to congestion. Hemorrhage can not be excluded. Correlate for signs/symptoms of abdominal pathology and consider further evaluation with abdomen and pelvis CT. Nodule in the thyroid meets size criteria for a dedicated nonemergent thyroid ultrasound. This document has been electronically signed by: Michaela Coyne MD on 12/04/2024 19:09:29
--- NOTE | ~2024-12-04 | CT_ITS ---
CLINICAL HISTORY: dizziness, headache, right sided facial numbness CT head without contrast Comparison: None Findings: No acute hemorrhage. No extra-axial fluid collection. Mild prominence of the extra-axial spaces due to atrophy of the brain parenchyma. No hydrocephalus, mass-effect or herniation. Cardona-white differentiation is maintained. There is patchy hypoattenuation of the periventricular and deep white matter, which is most likely the sequela of mild chronic small vessel ischemic disease. No acute orbital pathology. No acute soft tissue abnormality. No fracture. The visualized paranasal sinuses are predominantly clear. The mastoid air cells are clear. Impression: No acute findings. CTA of the head and neck with 3-D postprocessing Comparison: CR/SR - XR CERVICAL SPINE 2V - 11/21/24 07:55 EST Findings: No significant carotid artery stenosis. There is tortuosity of the vasculature, especially the internal carotid arteries. There is a slight lobular contour to the vessels, particularly the right internal carotid artery at the cervical segment Intact vertebral arteries. At the level of the fracture of C2 there is contour abnormality of the right vertebral artery involving the distal V2 segment with narrowing due to the ossific fragments. A dissection flap is not definitively visualized. The contour of the vertebral artery is normal distally. The vertebral basilar system is patent. The cerebellar and posterior cerebral arteries are intact. The intracranial internal carotid arteries are patent. The middle/anterior cerebral arteries are intact. No aneurysm or abrupt cutoffs. No mass, midline shift, hydrocephalus, acute hemorrhage or abnormal contrast enhancement. There is a lytic lesion in the C2 vertebra with a pathologic fracture involving of the base of the dens, vertebral body of the anterior/posterior and inferior aspects and extending into lateral masses. The fracture line extends into the right facet joint with up to 3 mm of displacement. The fracture line extends into the right transverse foramen. The fracture line also extends into the left transverse foramen. The left facet joint is intact. There is prevertebral edema versus soft tissue. No other is identified lytic lesion. The cortex the superior endplate of C3 is intact. Mild biapical scarring. Thyroid nodules measure up to 4.3 cm in the right lobe. The soft tissues of the head and neck are otherwise unremarkable. Impression: Lytic lesion in C2, favored to be metastatic disease. Pathologic fracture of C2, detailed above. The fracture line extends into the right transverse foramen. There is associated narrowing and contour abnormality of the right vertebral artery in this region which may indicate stenosis and/or dissection. No aneurysm or occlusion. Mild lobular contour of the vasculature, particularly the right internal carotid artery. This can be seen in the setting of aging, atherosclerotic disease, fibromuscular dysplasia and vasculitis. Nodule in the thyroid meets size criteria for a dedicated nonemergent thyroid ultrasound. This document has been electronically signed by: Michaela Coyne MD on 12/04/2024 18:58:33
[2024-12-04 14:14] VITALS: BP 172/90; PULSE 82; O2SAT 99
[2024-12-04 15:20] VITALS: BP 183/88; PULSE 86; RESP 18; O2SAT 100; BMI 29.8
--- NOTE | 2024-12-04 15:30 | ECG_ITS ---
Test Reason : DIZZINESS Blood Pressure : */* mmHG Vent. Rate : 79 BPM Atrial Rate : 79 BPM P-R Int : 156 ms QRS Dur : 88 ms QT Int : 398 ms P-R-T Axes : 68 -21 37 degrees QTcB Int : 456 ms Normal sinus rhythm Inferior infarct , age undetermined Abnormal ECG When compared with ECG of 09-Nov-2004 09:06, Inferior infarct is now Present Referred By: Evie Handley Electronically Signed By: FRANCES ALBERT
--- NOTE | 2024-12-04 15:30 | ED_ITS ---
HPI - Headache General Chief Complaint: Headache Stated Complaint: R sided neck pain Time Seen by Provider: 12/04/24 16:56 Source: patient and EMS Mode of arrival: EMS Limitations: no limitations History of Present Illness ED Provider: Dr. Chelsea Odell HPI Narrative: Patient comes to the emergency room complaining of nausea and vomiting after taking one table of tramadol. Patient states that she has chronic right-sided pace and neck pain. Patient states that initially today she had a little bit of numbness tingling on the right side of the face but it is not feeling it anymore, patient states that it is more pain that she feels. Patient states that the neck pain started randomly in October after waking up from her sleep when they. Patient denies any history of trauma or falls. Patient states that she has been seen by her primary care physician, patient states that she has CT scans and ultrasounds pending for this Tuesday. However, patient states that the pain is gradually getting much worse. Patient states shes had sever pain for 3 weeks and now, the pain is triggering her vertigo, getting dizzy, vomiting. Patient states that for the last 3+ weeks, she can barely move her neck due to the pain. Patient states that the center/midline of the neck is painless but both sides hurt quite a bit. Related Data Home Medications ?Medication ?Instructions ?Recorded ?Confirmed cholecalciferol (vitamin D3) 50 50 mcg PO DAILY 12/08/21 11/23/24 mcg (2,000 unit) capsule calcium carbonate [Calcium 500] 600 mg PO DAILY 07/18/23 11/23/24 ascorbic acid (vitamin C) 1,000 mg 1 g PO DIRECTED 06/28/24 11/23/24 tablet meclizine 25 mg tablet 25 mg PO DAILY PRN veritgo 06/28/24 11/23/24 omeprazole 20 mg capsule,delayed 20 mg PO DAILY 06/28/24 11/23/24 release potassium gluconate 500 mg (83 mg) 500 mg PO DIRECTED 06/28/24 11/23/24 tablet diphenhydramine HCl 25 mg capsule 25 mg PO BEDTIME PRN Allergies 10/23/24 11/23/24 (Allergy (diphenhydramine)) phenylephrine HCl 5 mg tablet 10 mg PO Q4-6H PRN Allergies 01/07/25 02/07/25 psyllium husk 0.4 gram capsule 0.4 g PO DAILY 10/23/24 11/23/24 (Metamucil) Previous Rx's ?Medication ?Instructions ?Recorded celecoxib 200 mg capsule 200 mg PO DAILY #90 caps 10/05/24 lidocaine 4 % topical patch 1 patch topical DAILY PRN pain #30 11/14/24 (Aspercreme (lidocaine)) ea tramadol 50 mg tablet 50 mg PO BEDTIME #14 tabs 11/29/24 Allergies Allergy/AdvReac Type Severity Reaction Status Date / Time aspirin Allergy Unknown Unknown Verified 12/04/24 15:24 latex Allergy Unknown Unknown Verified 12/04/24 15:24 milk Allergy Unknown Unknown Verified 12/04/24 15:24 Sulfa (Sulfonamide Allergy Unknown Unknown Verified 12/04/24 15:24 Antibiotics) Review of Systems 2 Review of Systems: Constitutional : No Weight loss, No Fever, No Chills, No Night Sweats, No Fatigue, No Malaise ENT/Mouth : No Hearing loss, No Ear Pain, No Nasal Congestion, No Sinus Pain, No Hoarseness, No sore throat, No Rhinorrhea, No Swallowing Difficulty Eyes: No Eye Pain, No Swelling, No Redness, No Foreign Body, No Discharge, No Vision Changes Cardiovascular : No Chest Pain, No SOB, No Dyspnea on Exertion, No Orthopnea, No Edema, No Palpitations Respiratory : No Cough, No Sputum, No Wheezing, No Smoke Exposure, No Dyspnea Gastrointestinal : No Nausea, No Vomiting, No Diarrhea, No Constipation, No abdominal Pain, No Hematochezia, No Melena Genitourinary : no irregular bleeding, No Dysuria, No Urinary Frequency, No Hematuria, No Urinary Incontinence, No Urgency, No Flank Pain, No Urinary Flow Changes, No Hesitancy Musculoskeletal complaining of worsening bilateral neck pain but much worse on the right side, complaining of right facial numbness Skin : No Skin Lesions, No rash Neuro : No Weakness, No Numbness, No Paresthesias, No Loss of Consciousness, No Dizziness, No Headache Psych : No Anxiety/Panic, No Depression, No SI/HI/AH/VH, No Social Issues, Heme/Lymph: No Bruising, No Bleeding,No Lymphadenopathy Endocrine : No Polyuria, No Polydipsia, No Temperature Intolerance PMFSH Past Medical History Medical History Breast cancer screening by mammogram Localized osteoarthritis of right knee Colon cancer screening Diarrhea Screening for diabetes mellitus Positive colorectal cancer screening using Cologuard test Knee pain, right Plantar fascia syndrome Colonoscopy refused Right hand paresthesia Shingles Collagen vascular disease Myxomatous mitral valve Ulnar nerve palsy Leukopenia GERD (gastroesophageal reflux disease) Thrombocytopenia Osteoarthritis Surgical History H/O eye surgery Hx of esophagogastroduodenoscopy Hx of colonoscopy Deficient knowledge of leg surgery History of thoracotomy History of cataract surgery History of tubal ligation History of tonsillectomy History of appendectomy Family History Family History Father Emphysema of lung Diabetes Mother Hypertension CVD (cardiovascular disease) Maternal Grandfather Esophageal cancer Maternal Uncle Esophageal cancer Lung cancer Sister No problems noted. Social History Social History Housing: House Alcohol intake: current Alcohol intake frequency: holidays/special occasions only Alcohol type: wine Comment: once Q 2 month 1 glass Patient Tobacco Use Status: Never used Tobacco Smoked in Last 30 Days: No e-Cigarette/Vaping Use: Never Used Second Hand Smoke Exposure: No Use of substances other than those prescribed or required for medical reasons: No Advance Directives: Yes Advance Directives Information Provided: Yes Advance Directives on File: Yes Advance Directives Date on File: 07/22/20 service: No Current occupational status: retired Cognitive needs: No Hearing needs: No Vision needs: No Physical Exam 2 Vital Signs: Vital Signs: Last Vital Signs Temp 98.4 F 12/04/24 23:13 Pulse 86 12/04/24 23:13 Resp 16 12/04/24 23:13 BP 159/93 H 12/04/24 23:13 Pulse Ox 97 12/04/24 23:13 O2 Del Method Room Air 12/04/24 23:13 BMI result Body Mass Index 29.8 Const: Other: Appearance: Alert. Oriented X3. Patient looks very uncomfortable Eyes: Pupils equal, round and reactive to light. ENT: Pharynx normal. Neck: Normal inspection. Unable to flex extend the neck, can not move the neck right to left due to severe pain. No palpable step-offs, no C-spine tenderness. Patient does not seem to have significant radiation towards the arms. CVS: Normal heart rate and rhythm. Pulses normal. Normal S1 and S2 Respiratory: No respiratory distress. Breath sounds normal. No Wheezing. No rales Abdomen: Soft and nontender. No rigidity. No distention. Skin: Skin warm and dry. Pale skin color. Normal skin turgor. Extremities: Patient has chronic leg. It was noted that patient has a hard lump on the distal aspect of the right lower extremity Neuro: Oriented X 3. No motor deficit. No sensory deficit. Moving all extremities. No slurred speech. CN 2 through 12 grossly intact Psych: calm, cooperative, normal affect NIH Stroke Scale Internal: Initial- Upon Arrival Level of Consciousness: Alert Level of Consciousness Questions: Answers both questions correctly Level of Consciousness Commands: Performs both tasks correctly Best Gaze: Normal Visual: No visual loss Facial Palsy: Normal Motor Arm (Right): No drift Motor Arm (Left): No drift Motor Leg (Right): No drift Motor Leg (Left): No drift Limb Ataxia: Absent Sensory: Normal Best Language: No aphasia Dysarthia: Normal Extinction and Inattention: No abnormality Score: 0 Course Course Course Narrative: This is an RME: Additional HPI, ROS, PE not included below will be deferred to primary provider. RME assessment and note performed by: Evie Handley PA-C This is a 74-year-old female who presents emergency department with complaints of right-sided head pain facial pain since October. Patient states that this area became numbness afternoon. She has a CT scan scheduled for this coming Tuesday. She also reports that she has developed dizziness and nausea this morning. She is currently on tramadol for pain. She is neurologically intact. Plan: Labs, CT, further ER evaluation needed. Medications Administered Generic Name Dose Route Start Last Admin Trade Name Freq PRN Reason Stop Dose Admin Enoxaparin Sodium 40 mg 12/04/24 23:00 12/04/24 23:24 Enoxaparin Sodium 40 Mg/0.4 Ml Syringe SUBCUT Not Given Q24H BALBINA Discontinued Medications Generic Name Dose Route Start Last Admin Trade Name Freq PRN Reason Stop Dose Admin Diazepam 1 mg 12/04/24 17:12 12/04/24 17:21 Diazepam 2 Mg Tablet PO 12/04/24 17:13 1 mg ONCE ONE Administration Sodium Chloride 1,000 mls @ 999 mls/hr 12/04/24 17:15 12/04/24 20:02 Ns IVCONT 12/04/24 18:15 Infused .Q1H1M ONE Infusion Iohexol 100 ml 12/04/24 17:34 12/04/24 17:36 Iohexol 350 Mg/Ml 100 Ml Infus..Btl IV 12/04/24 17:35 70 ml ONCE ONE Administration Iohexol 100 ml 12/04/24 19:46 12/04/24 19:51 Iohexol 350 Mg/Ml 100 Ml Infus..Btl IV 12/04/24 19:47 85 ml ONCE ONE Administration Meclizine HCl 50 mg 12/04/24 17:12 12/04/24 17:21 Meclizine Hcl 25 Mg Tablet PO 12/04/24 17:13 50 mg ONCE ONE Administration Morphine Sulfate 4 mg 12/04/24 20:50 12/04/24 21:10 Morphine Sulfate 4 Mg/Ml Cartridge IVPUSH 12/04/24 20:51 4 mg ONCE ONE Administration Protocol Ondansetron HCl 4 mg 12/04/24 17:15 12/04/24 17:21 Ondansetron Hcl 4 Mg/2 Ml Vial IVPUSH 12/04/24 17:16 4 mg ONCE ONE Administration Medical Decision Making Medical Decision Making MDM Narrative: Patient receiving IV fluids, p.o. diazepam meclizine and IV Zofran. Patient's main complaint today is that she has nausea and vomiting due to taking tramadol. However, patient looks very uncomfortable, states that the neck pain that she has been having it has been present for 3 weeks. Today she had some numbness tingling on the right side of the face. Patient states that she has no trouble with muscular weakness. Overall, patient states that other than the right side of her neck and face, she has no other symptoms. Patient denies any weakness in upper or lower extremities, denies any urinary/fecal incontinence/retention. Given the new onset of her intermittent tingling on the right side of the face and worsening pain in the neck, we will go ahead and order a CT scan of the head and neck with contrast to rule out dissection. I reviewed patient's chest x-ray from November 21, there were some suspicious nodules. Patient states that she has an appointment pending for outpatient CT scans. However, given the severity of her neck pain, we will go ahead and order the CT scan of the neck to rule out any pathology that may be related. My interpretation of labs: No significant abnormality in patient's hematology, neutrophils a bit elevated at 93%, normal chemistry, troponin 19.4, 2nd troponin 30.5. Patient denies any chest pain or shortness of breath. No significant abnormality patient's chemistry, calcium is slightly elevated 10.5. Serology negative for influenza RSV and COVID I discussed the CT scan findings with radiology. Unfortunately, patient's neck pain is secondary to a lytic lesion in C2, patient has a pathologic fracture, fracture extends into the anterior/posterior/inferior aspects of the lateral masses, there is a 3 mm displacement. Fracture also extends to the right transverse foramen. Chest CT shows a 4.9 cm on the left major fissure. 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 There is a 3.4 left adrenal mass. Less likely due to metastasis. A CT scan of the abdomen shows a 1 cm lesion in the liver, and also more pulmonary nodules measuring up to 1 cm. X-ray of her right ankle shows an enlargement of an aggressive lucency at the medial cortex of the distal tibia concerning for neoplasm. I discussed the above-mentioned with the patient. Also, patient was placed on an [place] collar. I discussed the patient with Neurosurgery at [facility]. They analyzed the patient's images, especially regarding the C2 fracture. Since patient has no significant neurological deficits and patient has this new diagnosis, the neurosurgery team advice against doing any procedure or transferring the patient. They advised to keep [place] collar in place. Before in neurosurgery consult or posterior would be done, they would like to have the complete oncologic workup with prognosis. Of note, patient still needs an ultrasound of the lower extremities, it was ordered occasion. However, given all this new findings, we will go ahead and order it today. I discussed the patient with Dr. Brownlee, at this time, we will not add any new cancer markers until heme Onc evaluates the patient probably tomorrow I discussed the patient with Dr. Will, patient being admitted. I discussed of left the above-mentioned with the patient. I offered informing family members/friends about her new diagnosis. Patient states that at this time she prefers not to tell her about the findings. Patient's is at home. Patient states that she will let him sleep tonight and tomorrow when he comes to visit her in the hospital, she will inform him of all the above-mentioned. Differential Diagnosis Differential Diagnoses: The differential diagnosis associated with the presentation includes (As above) Admission/Observation Consideration of admission/observation: Escalation of care including admission/observation considered Consult Healthcare Provider Management of the patient was discussed with: Hospitalist and [employer]ork[employer] Operator Lab Data MDM Lab Attestation statement: I reviewed the patient's lab results. 12/04/24 16:21 12/04/24 16:21 Labs: Lab Results 12/04/24 12/04/24 12/04/24 Range/Units 16:21 18:15 18:47 WBC 7.6 (4.8-10.8) X10*3/uL RBC 4.62 (4.20-5.50) X10*6/uL Hgb 13.7 (12.0-16.0) g/dl Hct 42.2 (37.0-47.0) % MCV 91.3 (80.0-98.0) fL MCH 29.7 (27.0-33.0) pg MCHC 32.5 (31.0-35.0) g/dl RDW 12.7 (11.0-16.0) % Plt Count 176 (160-400) X10*3/uL MPV 9.6 (9.4-12.3) fL Immature Gran % (Auto) 0.3 (0.0-0.4) % Neut % (Auto) 93.6 H (45-73) % Lymph % (Auto) 4.5 L (20-40) % Porter % (Auto) 1.4 L (2-11) % Eos % (Auto) 0.1 (0-4) % Baso % (Auto) 0.1 (0-2) % Lymph # (Auto) 0.3 L (1.2-4.9) X10*3/uL Porter # (Auto) 0.1 (0.1-1.2) X10*3/uL Eos # (Auto) 0.0 (0.0-0.4) X10*3/uL Baso # (Auto) 0.0 (0.0-0.2) X10*3/uL Abs Immat Gran (auto) 0.02 (0.00-0.03) X10*3/uL Absolute Neuts (auto) 7.1 (2.0-8.3) x10*3/uL Absolute Nucleated RBC 0.000 (0.0-0.012) X10*3/uL Nucleated RBC % (auto) 0.0 (0.0-0.2) /100WBC Smear Tech's Comments VERIFIED ESR 17 (0-20) MM/HR PT 11.6 (10.9-12.4) SEC INR 1.0 (0.9-1.1) Sodium 140 (135-145) mmol/L Potassium 4.1 (3.3-5.1) mmol/L Chloride 104 (96-108) mmol/L Carbon Dioxide 28 (22-29) mmol/L Anion Gap 12 (12-20) BUN 14 (9-16) mg/dL Creatinine 0.70 (0.5-1.4) mg/dL Estim Creat Clear Calc 80.7 Estimated GFR > 60 Random Glucose 124 H (60-115) mg/dL Calcium 10.5 H (8.4-10.2) mg/dL Magnesium 1.9 (1.6-2.6) mg/dL Total Bilirubin 0.4 (0.0-1.0) mg/dL Direct Bilirubin 0.2 (0.0-0.5) mg/dL AST 29 (5-31) U/L ALT 14 (0-31) U/L Alkaline Phosphatase 115 (39-117) U/L Troponin I High Sens 19.4 H 30.5 H D (<3.5-17.0) ng/L C-Reactive Protein 1.31 H (< or = 0.50) mg/dL Total Protein 8.2 H (6.5-8.0) g/dL Albumin 4.7 (3.5-5.0) g/dL Lipase 10 (8-78) U/L Urine Color Yellow Urine Appearance Clear Urine pH 7.0 (5.0-9.0) Ur Specific [place] 1.020 (1.005-1.025) Urine Protein Trace (Neg-Trace) mg/dL Urine Glucose (UA) Negative (Negative) mg/dL Urine Ketones 15 (Negative) mg/dL Urine Blood Trace H (Negative) Urine Nitrite Negative (Negative) Ur Leukocyte Esterase Trace H (Negative) Urine RBC 6-10 H (0-2) /HPF Urine WBC 0-5 (0-5) /HPF Ur Squamous Epith Cells 0-2 (0-2) /HPF Urine Bacteria None Seen (None Seen) Hyaline Casts 0-2 (0-2) /LPF Influenza Type A (PCR) NEGATIVE (Negative) Influenza Type B (PCR) NEGATIVE (Negative) RSV RNA Qual (PCR) NEGATIVE (Negative) SARS-CoV-2 RNA (RT-PCR) NEGATIVE (Negative) Independent Interpretation I performed an independent interpretation of an: Plain X-Ray and CT Scan Radiology Impression Discussion of test interpretation with radiology: I discussed test interpretation with the radiologist and I have reviewed the radiologist's reading. Radiologist Impression: No acute hemorrhage. No extra-axial fluid collection. Mild prominence of the extra-axial spaces due to atrophy of the brain parenchyma. No hydrocephalus, mass-effect or herniation. Cardona-white differentiation is maintained. There is patchy hypoattenuation of the periventricular and deep white matter, which is most likely the sequela of mild chronic small vessel ischemic disease. No acute orbital pathology. No acute soft tissue abnormality. No fracture. The visualized paranasal sinuses are predominantly clear. The mastoid air cells are clear. No significant carotid artery stenosis. There is tortuosity of the vasculature, especially the internal carotid arteries. There is a slight lobular contour to the vessels, particularly the right internal carotid artery at the cervical segment Intact vertebral arteries. At the level of the fracture of C2 there is contour abnormality of the right vertebral artery involving the distal V2 segment with narrowing due to the ossific fragments. A dissection flap is not definitively visualized. The contour of the vertebral artery is normal distally. The vertebral basilar system is patent. The cerebellar and posterior cerebral arteries are intact. The intracranial internal carotid arteries are patent. The middle/anterior cerebral arteries are intact. No aneurysm or abrupt cutoffs. No mass, midline shift, hydrocephalus, acute hemorrhage or abnormal contrast enhancement. There is a lytic lesion in the C2 vertebra with a pathologic fracture involving of the base of the dens, vertebral body of the anterior/posterior and inferior aspects and extending into lateral masses. The fracture line extends into the right facet joint with up to 3 mm of displacement. The fracture line extends into the right transverse foramen. The fracture line also extends into the left transverse foramen. The left facet joint is intact. There is prevertebral edema versus soft tissue. No other is identified lytic lesion. The cortex the superior endplate of C3 is intact. Mild biapical scarring. Thyroid nodules measure up to 4.3 cm in the right lobe. The soft tissues of the head and neck are otherwise unremarkable. No mediastinal mass or lymphadenopathy. Thyroid nodules measure up to 3.9 cm in the right lobe. No cardiomegaly or calcified coronary artery disease. Enlargement of the main pulmonary artery which measures 3.9 cm. Enlargement of the pulmonary artery can be seen in the setting of pulmonary arterial hypertension. Normal size thoracic aorta. Trace calcified atherosclerotic disease. There is a fat attenuation mass centered upon the left major fissure measuring 4.8 x 4.9 x 4.4 cm. There are bilateral pulmonary nodules which also measure fat attenuation, measuring up to 1.0 cm. There is a mild amount of ground-glass opacity adjacent to the left sided mass which is present in upper and lower lobes. Mild biapical scarring. No pneumothorax or pleural effusion. No acute osseous or soft tissue abnormality. No lytic lesion or pathologic fracture. No acute pathology in the imaged portion of the upper abdomen. Small hiatal hernia. Subcentimeter low attenuating lesion in the liver which is too small to characterize. Left adrenal mass measuring 3.0 x 3.2 x 3.4 cm with surrounding fat stranding. 3.3 cm lesion in the left adrenal gland, presumed malignant. Primary malignancy versus metastatic disease. The differential diagnosis for a primary malignancy of the left adrenal gland with fat containing metastatic lesions includes adrenal cortical carcinoma. No evidence of renal cell carcinoma; the fat plane between the adrenal lesion and the left kidney is lost, however the lesion is favored to originate from the adrenal gland with invasion of the left kidney. Adjacent stranding could be secondary to hemorrhage, edema or extension of malignancy. A liposarcoma is not identified, however may still be considered. Tissue sampling may be helpful to diagnose the primary tumor. Nonemergent workup is recommended. There is a fat attenuation 1.0 cm lesion in the liver which is favored to be metastatic disease. Pulmonary nodules measuring up to 1.0 cm, metastatic disease. Ground-glass opacity at the left lung base could be secondary to edema or infection. Aggressive lucency of the erosion of the distal tibia metaphysis with medial cortex involvement and extension towards the medial malleolus measures 2.1 cm (previously 1.7 cm. Adjacent soft tissue abnormalities nonspecific and can be seen with soft tissue mass. Proximal soft tissue calcifications are nonspecific and not significantly changed. Mild worsening osteoarthritis of the imaged ankle and subtalar joints. No new fracture or dislocation. Critical Care Time Critical Care Time Critical Care Time: Yes Total Critical Care Time: 90 Attestation: I have personally provided critical care time. Time includes review of lab data, radiology results, discussion with consultants, and monitoring for potential decompensation. Intervention performed as documented. Discharge Plan Discharge Clinical Impression: Metastatic cancer, Nausea & vomiting, Side effect of medication Patient Disposition: Admitted As Inpatient Prescriptions: No Action celecoxib 200 mg capsule 200 mg PO DAILY Qty: 90 2RF tramadol 50 mg tablet 50 mg PO BEDTIME Qty: 14 0RF omeprazole 20 mg capsule,delayed release(DR/EC) 20 mg PO DAILY Rx Instructions: 4 tunes a week Tuesday, Tuesday, , Tuesday ascorbic acid (vitamin C) 1,000 mg tablet 1 g PO DIRECTED Rx Instructions: 3X A WEEK- Tuesday//Tuesday potassium gluconate 500 mg (83 mg) tablet 500 mg PO DIRECTED Rx Instructions: 3 DATYS A WEEK: Tuesday/Tue/Fridays cholecalciferol (vitamin D3) 50 mcg (2,000 unit) capsule 50 mcg PO DAILY meclizine 25 mg tablet 25 mg PO DAILY PRN (Reason: veritgo) Rx Instructions: Patient takes half a tab PRN lidocaine [Aspercreme (lidocaine)] 4 % adhesive patch,medicated 1 patch topical DAILY PRN (Reason: pain) Qty: 30 0RF calcium carbonate [Calcium 500] 600 mg PO DAILY psyllium husk [Metamucil] 0.4 gram capsule 0.4 g PO DAILY phenylephrine HCl 5 mg tablet 10 mg PO Q4-6H PRN (Reason: Allergies) diphenhydramine HCl [Allergy (diphenhydramine)] 25 mg capsule 25 mg PO BEDTIME PRN (Reason: Allergies) Print Language: Kinyarwanda
[2024-12-04 16:34] LABS: Basophils Percent Auto 0.1 % (0-2); Eosinophils Percent Auto 0.1 % (0-4); Hematocrit 42.2 % (37.0-47.0); Hemoglobin 13.7 g/dl (12.0-16.0); Imm Gran Abs Auto 0.02 X10*3/uL (0.00-0.03); Imm Gran Pct Auto 0.3 % (0.0-0.4); Lymphocytes Absolute Auto 0.3 X10*3/uL (1.2-4.9); Lymphocytes Percent Auto 4.5 % (20-40); MANUAL DIFF FLAG SCAN; Mean Corpuscular HGB Conc 32.5 g/dl (31.0-35.0); Mean Corpuscular Hemoglobin 29.7 pg (27.0-33.0); Mean Corpuscular Volume 91.3 fL (80.0-98.0); Mean Platelet Volume 9.6 fL (9.4-12.3); Monocytes Absolute Auto 0.1 X10*3/uL (0.1-1.2); Monocytes Percent Auto 1.4 % (2-11); Neutrophils Absolute Auto 7.1 x10*3/uL (2.0-8.3); Neutrophils Percent Auto 93.6 % (45-73); Platelet Count 176 X10*3/uL (160-400); Red Blood Count 4.62 X10*6/uL (4.20-5.50); Red Cell Distribution Width 12.7 % (11.0-16.0); SCAN SMEAR FLAG 1; White Blood Count 7.6 X10*3/uL (4.8-10.8)
[2024-12-04 16:40] LABS: Prothrombin Time 11.6 SEC (10.9-12.4)
--- OUTSIDE RECORDS SUMMARY | 2024-12-04 16:43 | XMS_ITS | Patient Health Record ---
Author Organization [facility] Address [address] [place] [id number] Care Team Providers Care Him Specialists Name Role Phone Po Renata ACEVES Primary [...] reflux disease without esophagitis (K21.9) Active confirmed [id number] Problem Abnormal findings in stool (R19.5) Active confirmed [id number] PLAN OF TREATMENT Pending Test Test Name Order Date GI PANEL 11/25/2022 Future Test Test Name Order Date COLONOSCOPY 06/17/2022 Insurance Providers Payer Name Payer Address Payer Phone Subscriber Number Group Number Insured Name Patient Relationship to Insured Coverage Start Date Coverage End Date [employer] [address] [place] [address] [phone] [id number] PRIOR, ELIZABETH Self - patient is the insured MEDICAL (GENERAL) HISTORY Medical History History ICD Code Gastroesophageal reflux disease without esophagitis Irritable bowel syndrome with constipati on Vertigo Arthritis Seasonal allergic rhinitis Osteopenia Colonoscopy 08/07, done to followup posi tive Cologuard, normal exam. Surgical History Surgery Date(Month/Year) appendectomy thoracotomy 2004
--- OUTSIDE RECORDS SUMMARY | 2024-12-04 16:43 | XMS_ITS | Patient Health Record ---
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
--- OUTSIDE RECORDS SUMMARY | 2024-12-04 16:43 | XMS_ITS | Continuity of Care Document ---
Author Name [facility] Organization [facility] Care Team Providers Care Musical Instrument Mechanic Name Role Phone [facility] Unavailable Unavailable Allergies, Adverse Reactions, Alerts Combined list of allergies from Department of Defense and Veterans Affairs facilities. It does not include entries that were removed or entered in error. Substance Category Reaction Severity Reaction type Status Date Reported Comments Source [facility] Propensity to adverse reactions to drug (finding) Nausea and vomiting, Headache active [facility] [place] [facility] Immunizations Combined list of available immunizations from the Department of Defense and Veterans Affairs facilities. Immunization Series Date Given Administered By Site Reaction Lot Number CVX Code Drug Automobile Body Repair Chief Status Comments Source COVID-19 (MODERNA), MRNA, LNP-S, PF, 100 MCG/0.5 ML DOSE 2 2020 207 complet ed MOD; [id number]; 1 [facility] [place] [facility] COVID-19 (MODERNA), MRNA, LNP-S, PF, 100 MCG/0.5 ML DOSE 1 2020 207 complet ed MOD; [id number]; 1 [facility] [place] [facility]
[2024-12-04 16:51] LABS: Alanine Aminotransferase 14 U/L (0-31); Albumin Level 4.7 g/dL (3.5-5.0); Alkaline Phosphatase 115 U/L (39-117); Anion Gap 12 (12-20); Aspartate Amino Transferase 29 U/L (5-31); Bilirubin Direct 0.2 mg/dL (0.0-0.5); Bilirubin Total 0.4 mg/dL (0.0-1.0); Blood Urea Nitrogen 14 mg/dL (9-16); C Reactive Protein 1.31 mg/dL (< or = 0.50); Calcium 10.5 mg/dL (8.4-10.2); Carbon Dioxide 28 mmol/L (22-29); Chloride 104 mmol/L (96-108); Creatinine Clr Calc Pharmacy 80.7; Estimated Glomerular Filt Rate > 60; Glucose Random 124 mg/dL (60-115); Lipase 10 U/L (8-78); Magnesium 1.9 mg/dL (1.6-2.6); Potassium 4.1 mmol/L (3.3-5.1); Sodium 140 mmol/L (135-145); Total Protein 8.2 g/dL (6.5-8.0)
[2024-12-04 16:53] LABS: Troponin-I High Sensitivity 19.4 ng/L (<3.5-17.0)
[2024-12-04 17:13] LABS: Influenza A PCR NEGATIVE (Negative); Influenza B PCR NEGATIVE (Negative); Resp Syncy Virus RNA Qual PCR NEGATIVE (Negative); SARS COV2 PCR INHOUSE NEGATIVE (Negative)
[2024-12-04 17:16] LABS: SLIDE REVIEW VERIFIED
[2024-12-04] MEDS: ondansetron HCL 4 MG/2 ML VIAL IVPUSH (17:21)
[2024-12-04] MEDS: diazePAM 2 MG TABLET 1 MG PO (17:21)
[2024-12-04] MEDS: Meclizine HCl 25 MG TABLET 50 MG PO (17:21)
[2024-12-04] MEDS: 0.9 % Sodium Chloride 1,000 ML 999 ML IVCONT (17:21)
[2024-12-04] MEDS: iohexoL 350 MG/ML 100 ML INFUS..BTL IV ×2 (17:36→19:51)
[2024-12-04 17:51] LABS: Erythrocyte Sedimentation Rate 17 MM/HR (0-20)
[2024-12-04 18:01] VITALS: BP 155/86; PULSE 82; RESP 12; TEMP 36.4; O2SAT 98
[2024-12-04 18:26] LABS: Appearance Urine Clear; Color Urine Yellow; Glucose Urine UA Negative (Negative); Leukocyte Esterase Urine Trace (Negative); Nitrite Urine Negative (Negative); UMIC TRIGGER UACC YES; Urine Blood Trace (Negative); Urine Ketones 15 mg/dL (Negative); Urine Protein Trace mg/dL (Neg-Trace)
[2024-12-04 18:31] LABS: Bacteria Urine None Seen (None Seen); Hyaline Casts Urine 0-2 /LPF (0-2); Squamous Epithelial Cell Urine 0-2 /HPF (0-2); WBC Urine 0-5 /HPF (0-5)
--- NOTE | 2024-12-04 19:12 | PC.NURSE ---
This RN and music education director Charley applied [place] Collar per request of MD Odell. Pt tolerated well.
[2024-12-04 19:20] LABS: Troponin-I High Sensitivity 30.5 ng/L (<3.5-17.0)
--- NOTE | 2024-12-04 20:48 | PC.NURSE ---
apen collar adjusted for comfort, pt taken to ct scan and awaiting results
[2024-12-04] MEDS: Morphine Sulfate 4 MG/ML CARTRIDGE IVPUSH (21:10)
--- NOTE | 2024-12-04 21:14 | PC.NURSE ---
pt given warm blanket and medicated for pain.
--- NOTE | 2024-12-04 22:53 | PC.NURSE ---
assess pt for comfort, repositioned, pt resting in bed.
[2024-12-04 23:13] VITALS: BP 159/93; PULSE 86; RESP 16; TEMP 36.9; O2SAT 97
--- NOTE | 2024-12-04 23:24 | PC.NURSE ---
pt refusing lovenox injection
--- NOTE | 2024-12-04 23:32 | PM.IMHP ---
History of Present Illness Date of Service: 12/04/24 <MAGDALENA Fowler Last Filed: 12/04/24 23:43> Attending physician on admission: Val Will <MAGDALENA Fowler Last Filed: 12/04/24 23:43> Chief Complaint: R head/neck pain, R facial numbness <MAGDALENA Fowler Last Filed: 12/04/24 23:43> Patient is a 74-year-old female with a past medical history significant for vertigo, who presented to the ED due to right-sided head/neck pain as well as right-sided facial numbness starting yesterday. The pain has been persistent for the past 2 months. She reports that this has been causing dizziness and vomiting triggering her vertigo. She denies any additional symptoms including runny nose, congestion, cough, shortness of breath, abdominal pain, urinary frequency, urgency or hematuria. <MAGDALENA Fowler Last Filed: 12/04/24 23:43> Review of Systems Constitutional: Constitutional: Denies body ache(s), Denies chills, Denies fatigue, Denies fever(s) and Reports headache(s) <MAGDALENA Fowler Last Filed: 12/04/24 23:43> Eyes: Eyes: Denies change in vision, Denies loss of vision and Denies photophobia <MAGDALENA Fowler Last Filed: 12/04/24 23:43> ENT: Reports headache(s), Denies nasal congestion, Denies nasal discharge and Denies sore throat <MAGDALENA Fowler Last Filed: 12/04/24 23:43> Cardiovascular: Cardiovascular: Denies chest pain, Denies rapid heart rate, Denies leg edema, Denies lightheadedness and Denies dyspnea <MAGDALENA Fowler Last Filed: 12/04/24 23:43> Respiratory: Respiratory: Denies chest congestion, Denies cough, Denies dyspnea and Denies wheezing <MAGDALENA Fowler Last Filed: 12/04/24 23:43> Gastrointestinal: Gastrointestinal: Denies abdominal pain, Denies melena, Denies hematochezia, Denies coffee ground emesis, Denies constipation, Denies diarrhea, Reports nausea, Reports vomiting and Denies hematemesis <Jenn Siu PA-C Last Filed: 12/04/24 23:43> Genitourinary: Genitourinary: Denies hematuria, Denies difficulty voiding, Denies dysuria and Denies urinary urgency <Jenn Siu PA-C Last Filed: 12/04/24 23:43> Musculoskeletal: Musculoskeletal: Denies myalgias <HALLIE Fowler Filed: 12/04/24 23:43> Integumentary/Breasts: Skin/Breast: Denies rash <Jenn Siu PA-C Filed: 12/04/24 23:43> Neurologic: Denies confusion, Reports headache(s) and Denies loss of vision <HALLIE Fowler Filed: 12/04/24 23:43> Psychiatric: Psychiatric: Denies confusion <HALLIE Fowler Filed: 12/04/24 23:43> Endocrine: Endocrine: Denies fatigue <LUCRECIA FowlerMadiha Filed: 12/04/24 23:43> Hematologic/Lymphatic: Hematologic/Lymphatic: Denies easy bleeding and Denies easy bruising <HALLIE Fowler Filed: 12/04/24 23:43> Allergic/Immunologic: Allergic/Immunologic: Denies wheezing <HALLIE Fowler Filed: 12/04/24 23:43> [facility] Medical History: Medical History Breast cancer screening by mammogram Localized osteoarthritis of right knee Colon cancer screening Diarrhea Screening for diabetes mellitus Positive colorectal cancer screening using Cologuard test Knee pain, right Plantar fascia syndrome Colonoscopy refused Right hand paresthesia Shingles Collagen vascular disease Myxomatous mitral valve Ulnar nerve palsy Leukopenia GERD (gastroesophageal reflux disease) Thrombocytopenia Osteoarthritis <Jenn Siu PA-C Filed: 12/04/24 23:43> Functional capacity: independent ambulation <Jenn Siu PA-C - Last Filed: 12/04/24 23:43> Family History: Family History Father Emphysema of lung Diabetes Mother Hypertension CVD (cardiovascular disease) Maternal Grandfather Esophageal cancer Maternal Uncle Esophageal cancer Lung cancer Sister No problems noted. <Jenn Siu PA-C - Last Filed: 12/04/24 23:43> Surgical History: Surgical History H/O eye surgery Hx of esophagogastroduodenoscopy Hx of colonoscopy Deficient knowledge of leg surgery History of thoracotomy History of cataract surgery History of tubal ligation History of tonsillectomy History of appendectomy <Jenn Siu PA-C - Last Filed: 12/04/24 23:43> Social History: Social History Housing: House Alcohol intake: current Alcohol intake frequency: holidays/special occasions only Alcohol type: wine Comment: once Q 2 month 1 glass Patient Tobacco Use Status: Never used Tobacco Smoked in Last 30 Days: No e-Cigarette/Vaping Use: Never Used Second Hand Smoke Exposure: No Use of substances other than those prescribed or required for medical reasons: No Advance Directives: Yes Advance Directives Information Provided: Yes Advance Directives on File: Yes Advance Directives Date on File: 07/22/20 service: No Current occupational status: retired Cognitive needs: No Hearing needs: No Vision needs: No <Jenn Siu PA-C - Last Filed: 12/04/24 23:43> Narrative: no smoking, etoh or drug use <MAGDALENA Fowler Last Filed: 12/04/24 23:43> Meds Allergies/Adverse reactions: Allergies Allergy/AdvReac Type Severity Reaction Status Date / Time aspirin Allergy Unknown Unknown Verified 12/04/24 15:24 latex Allergy Unknown Unknown Verified 12/04/24 15:24 milk Allergy Unknown Unknown Verified 12/04/24 15:24 Sulfa (Sulfonamide Allergy Unknown Unknown Verified 12/04/24 15:24 Antibiotics) <Jenn Siu PA-C - Last Filed: 12/04/24 23:43> Active Medications: Current Medications Acetaminophen (Acetaminophen 325 Mg Tablet) 650 mg PO Q6H PRN PRN Reason: Pain, Mild 1-3,fever,headache Calcium Carbonate (Calcium Carbonate 750 Mg Tab.Chew) 750 mg PO Q4H PRN PRN Reason: Heartburn Enoxaparin Sodium (Enoxaparin Sodium 40 Mg/0.4 Ml Syringe) 40 mg SUBCUT Q24H [facility] Last Admin: 12/04/24 23:24 Dose: Not Given Magnesium Hydroxide (Milk Of Magnesia 30 Ml Oral.Susp) 30 ml PO DAILY PRN PRN Reason: Constipation Melatonin (Melatonin 3 Mg Tablet) 6 mg PO BEDTIME PRN PRN Reason: Insomnia Ondansetron HCl (Ondansetron Hcl 4 Mg/2 Ml Vial) 4 mg IVPUSH Q8H PRN PRN Reason: Nausea and Vomiting Sodium Chloride (0.9 % Sodium Chloride Flush 3 Ml Syringe) 3 ml IVFLUSH QSHIFT [facility] <Jenn Siu PA-C - Last Filed: 12/04/24 23:43> Home medications: Home Medications ?Medication ?Instructions ?Recorded ?Confirmed ?Last Taken ?Type cholecalciferol (vitamin D3) 50 50 mcg PO DAILY 12/08/21 11/23/24 Unknown History mcg (2,000 unit) capsule calcium carbonate [Calcium 500] 600 mg PO DAILY 07/18/23 11/23/24 Unknown History ascorbic acid (vitamin C) 1,000 mg 1 g PO DIRECTED 06/28/24 11/23/24 Unknown History tablet meclizine 25 mg tablet 25 mg PO DAILY PRN veritgo 06/28/24 11/23/24 Unknown History omeprazole 20 mg capsule,delayed 20 mg PO DAILY 06/28/24 11/23/24 Unknown History release potassium gluconate 500 mg (83 mg) 500 mg PO DIRECTED 06/28/24 11/23/24 Unknown History tablet diphenhydramine HCl 25 mg capsule 25 mg PO BEDTIME PRN Allergies 10/23/24 11/23/24 Unknown History (Allergy (diphenhydramine)) phenylephrine HCl 5 mg tablet 10 mg PO Q4-6H PRN Allergies 10/23/24 11/23/24 Unknown History psyllium husk 0.4 gram capsule 0.4 g PO DAILY 10/23/24 11/23/24 Unknown History (Metamucil) <Jenn Siu PA-C - Last Filed: 12/04/24 23:43> Physical Exam Vital Signs and Narrative: Vital Signs: Last Vital Signs Temp 98.4 F 12/04/24 23:13 Pulse 86 12/04/24 23:13 Resp 16 12/04/24 23:13 BP 159/93 H 12/04/24 23:13 Pulse Ox 97 12/04/24 23:13 O2 Del Method Room Air 12/04/24 23:13 BMI result Body Mass Index 29.8 <Jenn Siu PA-C - Last Filed: 12/04/24 23:43> General: AOx3, no acute distress, c-collar in place Resp: CTA bilaterally CVS: S1, S2, RRR GI: +BS, NT, no distention Skin: Warm, dry Neuro: Cranial nerves II-XII grossly intact bilaterally. Motor grossly intact bilaterally Extremities: No LE edema Psych: Appropriate affect <Jenn Siu PA-C - Last Filed: 12/04/24 23:43> Const: General: No confusion <Jenn Siu PA-C - Last Filed: 12/04/24 23:43> Orientation/consciousness: No confusion <Jenn Siu PA-C - Last Filed: 12/04/24 23:43> Eyes: Direct Ophthalmoscopy: No photophobia <Jenn Siu PA-C Last Filed: 12/04/24 23:43> Neuro: General: No confusion <Jenn Siu PA-C - Last Filed: 12/04/24 23:43> Results Labs CBC and Chem 7: 12/04/24 16:21 12/04/24 16:21 <MAGDALENA Fowler Last Filed: 12/04/24 23:43> Labs: Laboratory Results - last 24 hr 12/04/24 12/04/24 16:21 18:15 MCV 91.3 MCH 29.7 MCHC 32.5 RDW 12.7 Plt Count 176 MPV 9.6 Immature Gran % (Auto) 0.3 Neut % (Auto) 93.6 H Lymph % (Auto) 4.5 L [place] % (Auto) 1.4 L Eos % (Auto) 0.1 Baso % (Auto) 0.1 Lymph # (Auto) 0.3 L [place] # (Auto) 0.1 Eos # (Auto) 0.0 Baso # (Auto) 0.0 Abs Immat Gran (auto) 0.02 Absolute Neuts (auto) 7.1 Absolute Nucleated RBC 0.000 Nucleated RBC % (auto) 0.0 Smear Tech's Comments VERIFIED ESR 17 PT 11.6 INR 1.0 Anion Gap 12 Estim Creat Clear Calc 80.7 Estimated GFR > 60 Random Glucose 124 H Calcium 10.5 H Magnesium 1.9 Total Bilirubin 0.4 Direct Bilirubin 0.2 AST 29 ALT 14 Alkaline Phosphatase 115 C-Reactive Protein 1.31 H Total Protein 8.2 H Albumin 4.7 Lipase 10 Urine Color Yellow Urine Appearance Clear Urine pH 7.0 Ur Specific [place] 1.020 Urine Protein Trace Urine Glucose (UA) Negative Urine Ketones 15 Urine Blood Trace H Urine Nitrite Negative Ur Leukocyte Esterase Trace H Urine RBC 6-10 H Urine WBC 0-5 Ur Squamous Epith Cells 0-2 Urine Bacteria None Seen Hyaline Casts 0-2 Influenza Type A (PCR) NEGATIVE Influenza Type B (PCR) NEGATIVE RSV RNA Qual (PCR) NEGATIVE SARS-CoV-2 RNA (RT-PCR) NEGATIVE <Jenn Siu PA-C - Last Filed: 12/04/24 23:43> Assessment and Plan (1) Metastatic cancer: Status: Acute <Jenn Siu PA-C - Last Filed: 12/04/24 23:43> (2) C2 cervical fracture: Status: Acute <Jenn Siu PA-C - Last Filed: 12/04/24 23:43> Patient is a 74-year-old female with a past medical history significant for vertigo, who presented to the ED due to right-sided head/neck pain as well as right-sided facial numbness starting yesterday. W/u consistent with new finding of metastatic cancer, unknown etiology, possibly liposarcoma. Neck pain from lesion on C2 and fracture. [facility] neurosurgery contacted regarding fx and transfer declined, no surgical intervention recommended. neck pain secondary to C2 fx from metastatic cancer of unknown origin - CTA head and neck with lytic lesion at C2, favored to be metastatic disease with pathologic fracture extending to the right transverse foramen with associated narrowing and contour abnormality of the right vertebral artery, thyroid nodule - chest CT with 4.9 cm fat attenuation mass centered upon the left major fissure within bilateral fat attenuation pulmonary nodules measuring up to 1 cm, metastatic disease favored such as liposarcoma or renal cell carcinoma, 3.4 cm left adrenal mass presumed metastatic disease - A/P CT placed 3.3 cm lesion of the left adrenal gland, presumed malignant, primary versus metastatic disease. Liposarcoma not identified. No evidence of renal cell carcinoma. - right ankle x-ray due to lump with enlargement of the aggressive lucency at the medial cortex of the distal tibia concerning for neoplasm - admit for pain management - oncology consult full code VTE prophy: lovenox Patient with new diagnosis of metastatic cancer with unknown origin and intractable pain and C2 fracture, requiring admission for pain management and further oncologic consultation, for at least 2 midnights stay. <Jenn Siu PA-C - Last Filed: 12/04/24 23:43> Patient is a 74-year-old female with a past medical history significant for vertigo, who presented to the ED due to right-sided head/neck pain as well as right-sided facial numbness starting yesterday. W/u consistent with new finding of metastatic cancer, unknown etiology, possibly liposarcoma. Neck pain from lesion on C2 and fracture. [facility] neurosurgery contacted regarding fx and transfer declined, no surgical intervention recommended. neck pain secondary to C2 fx from metastatic cancer of unknown origin - CTA head and neck with lytic lesion at C2, favored to be metastatic disease with pathologic fracture extending to the right transverse foramen with associated narrowing and contour abnormality of the right vertebral artery, thyroid nodule - chest CT with 4.9 cm fat attenuation mass centered upon the left major fissure within bilateral fat attenuation pulmonary nodules measuring up to 1 cm, metastatic disease favored such as liposarcoma or renal cell carcinoma, 3.4 cm left adrenal mass presumed metastatic disease - A/P CT placed 3.3 cm lesion of the left adrenal gland, presumed malignant, primary versus metastatic disease. Liposarcoma not identified. No evidence of renal cell carcinoma. - right ankle x-ray due to lump with enlargement of the aggressive lucency at the medial cortex of the distal tibia concerning for neoplasm -neurosurgery consulted at [facility] for C2 fx>>no surgical intervention needed. - admit for pain management - oncology consult full code VTE prophy: lovenox Patient with new diagnosis of metastatic cancer with unknown origin and intractable pain and C2 fracture, requiring admission for pain management and further oncologic consultation, for at least 2 midnights stay. <Val Will MD - Last Filed: 12/04/24 23:44> Quality Stroke Does the patient have a stroke diagnosis?: No <Jenn Siu PA-C - Last Filed: 12/04/24 23:43> VTE Prior VTE?: No <Jenn Siu PA-C - Last Filed: 12/04/24 23:43> VTE Risk Level:: Medical - moderate - high <Jenn Siu PA-C - Last Filed: 12/04/24 23:43> VTE Device Contraindication: Treatment Not Indicated <Jenn Siu PA-C - Last Filed: 12/04/24 23:43> VTE Drug Contraindication: N/A - Med Ordered <Jenn Siu PA-C - Last Filed: 12/04/24 23:43>
[2024-12-05] VITALS (7 sets, daily range): BP systolic 133–164; BP diastolic 72–85; PULSE 80–93; RESP 16–20; TEMP 36.1–36.7; O2SAT 95–99
[2024-12-05] MEDS: 0.9 % Sodium Chloride Flush 3 ML SYRINGE IVFLUSH ×4 (01:37→20:54)
[2024-12-05] MEDS: Morphine Sulfate 4 MG/ML CARTRIDGE IVPUSH ×2 (01:37→12:02)
[2024-12-05] MEDS: ondansetron HCL 4 MG/2 ML VIAL IVPUSH ×2 (01:37→10:21)
--- NOTE | 2024-12-05 01:43 | PC.NURSE ---
pt medicated for pain management and nausea, pt repositioned
[2024-12-05 06:18] LABS: MANUAL DIFF FLAG NO
[2024-12-05 06:35] LABS: Anion Gap 12 (12-20); Blood Urea Nitrogen 12 mg/dL (9-16); Calcium 9.9 mg/dL (8.4-10.2); Carbon Dioxide 26 mmol/L (22-29); Chloride 106 mmol/L (96-108); Creatinine Clr Calc Pharmacy 80.7; Estimated Glomerular Filt Rate > 60; Glucose Random 102 mg/dL (60-115); Potassium 4.4 mmol/L (3.3-5.1); Sodium 140 mmol/L (135-145)
[2024-12-05 07:14] LABS: Basophils Percent Auto 0.4 % (0-2); Eosinophils Percent Auto 0.1 % (0-4); Hematocrit 38.3 % (37.0-47.0); Hemoglobin 12.4 g/dl (12.0-16.0); Imm Gran Abs Auto 0.02 X10*3/uL (0.00-0.03); Imm Gran Pct Auto 0.3 % (0.0-0.4); Lymphocytes Absolute Auto 0.7 X10*3/uL (1.2-4.9); Lymphocytes Percent Auto 8.8 % (20-40); Mean Corpuscular HGB Conc 32.4 g/dl (31.0-35.0); Mean Corpuscular Hemoglobin 29.7 pg (27.0-33.0); Mean Corpuscular Volume 91.8 fL (80.0-98.0); Mean Platelet Volume 10.4 fL (9.4-12.3); Monocytes Absolute Auto 0.4 X10*3/uL (0.1-1.2); Neutrophils Absolute Auto 6.4 x10*3/uL (2.0-8.3); Neutrophils Percent Auto 85.4 % (45-73); Platelet Count 166 X10*3/uL (160-400); Red Blood Count 4.17 X10*6/uL (4.20-5.50); Red Cell Distribution Width 12.7 % (11.0-16.0); White Blood Count 7.5 X10*3/uL (4.8-10.8)
--- NOTE | 2024-12-05 09:45 | PHA.MEDREC ---
Pharmacy Consult ? Medication Reconciliation Pharmacy has completed the medication reconciliation.
--- NOTE | 2024-12-05 11:01 | PM.HEMONCCN ---
Subjective - Subjective Chief complaint: Neck pain and swelling Patient: known to practice within the last 3 years Consult date: 12/05/24 Requesting Physician: Hospitalist team Primary Care Provider: Renata Morrison MD Alterations Expert Utilized?: No - Georgian Speaking HPI - Consult Narrative Reason for consult: Probable metastatic malignancy Narrative: Natalia Coronado is a 74 year old female who is currently admitted because of lytic lesion in C2 cervical spine and CT evidence of widespread malignancy. Patient was seen in oncology clinic on 11/23/2024 with complaints of right-sided neck pain and swelling. She was recommended further scans which were all pending at the time. Patient reports swelling over her right ankle which initially started in July 2024. She was seen by both General surgery and vascular surgery for this. She has not had any biopsy thus far. She says about 40 years ago she had surgery on her right leg at [facility] to remove excess tissue. She was never diagnosed with any cancer in the past. She is up-to-date with mammogram and screening colonoscopy. She is and lives at home with the , no history of smoking or excess alcohol use. 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 She underwent right thoracotomy for empyema/pneumonia many years ago. She denies any fever or chills. Her appetite has been somewhat poor. She denies any significant weight loss. Review of Systems - Constitutional Reports as per HPI, Reports poor appetite - Eyes Denies blurry vision, Denies loss of vision - ENT Denies change in voice, Denies dysphagia - Cardiovascular Reports no additional cardiovascular complaints, Denies chest pain with activity - Respiratory Denies cough - Gastrointestinal Denies abdominal pain - Neurologic Denies confusion, Reports headache(s), Denies loss of vision [facility] Medical History: Medical History (Last Reviewed 12/05/24 @ 08:43 by Karina Johnston, OTR-L) Breast cancer screening by mammogram Collagen vascular disease Colon cancer screening Colonoscopy refused Diarrhea GERD (gastroesophageal reflux disease) Knee pain, right Leukopenia Localized osteoarthritis of right knee Myxomatous mitral valve Osteoarthritis Plantar fascia syndrome Positive colorectal cancer screening using Cologuard test Right hand paresthesia Screening for diabetes mellitus Shingles Thrombocytopenia Ulnar nerve palsy Functional capacity: independent ambulation Family History: Family History (Last Reviewed 11/14/24 @ 15:20 by ROYAL Hugo) Father Emphysema of lung Diabetes Mother Hypertension CVD (cardiovascular disease) Maternal Grandfather Esophageal cancer Maternal Uncle Esophageal cancer Lung cancer Sister No problems noted. Surgical History: Surgical History (Last Reviewed 12/05/24 @ 08:43 by WALESKA Hampton-Betsy) Deficient knowledge of leg surgery H/O eye surgery History of appendectomy History of cataract surgery History of thoracotomy History of tonsillectomy History of tubal ligation Hx of colonoscopy Hx of esophagogastroduodenoscopy Social History: Social History (Last Reviewed 11/14/24 @ 15:20 by ROYAL Hugo) Living Situation History: Household Members: Spouse Housing: House Do you presently have visiting nurse or other home services: No Tobacco History: Patient Tobacco Use Status: Never used Tobacco e-Cigarette/Vaping Use: Never Used Second Hand Smoke Exposure: No Advance Directives: Advance Directives Date on File: 07/22/20 Occupation Assessmet: service: No Current occupational status: retired Home Medications and Allergies Current Medications: Current Medications Acetaminophen (Acetaminophen 325 Mg Tablet) 650 mg PO Q6H PRN PRN Reason: Pain, Mild 1-3,fever,headache Ascorbic Acid (Ascorbic Acid 500 Mg Tablet) 1,000 mg PO TUTHSA [facility] Calcium Carbonate (Calcium Carbonate 750 Mg Tab.Chew) 750 mg PO Q4H PRN PRN Reason: Heartburn Celecoxib (Celecoxib 200 Mg Capsule) 200 mg PO DAILY [facility] Enoxaparin Sodium (Enoxaparin Sodium 40 Mg/0.4 Ml Syringe) 40 mg SUBCUT Q24H [facility] Last Admin: 12/04/24 23:24 Dose: Not Given Magnesium Hydroxide (Milk Of Magnesia 30 Ml Oral.Susp) 30 ml PO DAILY PRN PRN Reason: Constipation Meclizine HCl (Meclizine Hcl 25 Mg Tablet) 25 mg PO DAILY PRN PRN Reason: veritgo Melatonin (Melatonin 3 Mg Tablet) 6 mg PO BEDTIME PRN PRN Reason: Insomnia Morphine Sulfate (Morphine Sulfate 4 Mg/Ml Cartridge) 4 mg IVPUSH Q4H PRN; Protocol PRN Reason: Pain, Severe (Pain Scale 7-10) Last Admin: 12/05/24 01:37 Dose: 4 mg Omeprazole (Omeprazole 20 Mg Capsule.Dr) 20 mg PO DAILY@0630 [facility] Ondansetron HCl (Ondansetron Hcl 4 Mg/2 Ml Vial) 4 mg IVPUSH Q8H PRN PRN Reason: Nausea and Vomiting Last Admin: 12/05/24 10:21 Dose: 4 mg Sodium Chloride (0.9 % Sodium Chloride Flush 3 Ml Syringe) [facility] Last Admin: 12/05/24 08:53 Dose: 3 ml Vitamin D (Cholecalciferol (Vitamin D3) 25 Mcg Tablet) 50 mcg PO DAILY [facility] Home Medications ?Medication ?Instructions ?Recorded ?Confirmed ?Type cholecalciferol (vitamin D3) 50 50 mcg PO DAILY 12/08/21 12/05/24 History mcg (2,000 unit) capsule calcium carbonate [Calcium 500] 600 mg PO DAILY 07/18/23 12/05/24 History ascorbic acid (vitamin C) 1,000 mg 1 g PO TUTHSA 06/28/24 12/05/24 History tablet meclizine 25 mg tablet 25 mg PO DAILY PRN veritgo 06/28/24 12/05/24 History omeprazole 20 mg capsule,delayed 20 mg PO DAILY 06/28/24 12/05/24 History release potassium gluconate 500 mg (83 mg) 500 mg PO MOWEFR 06/28/24 12/05/24 History tablet phenylephrine HCl 5 mg tablet 10 mg PO Q4-6H PRN Allergies 10/23/24 12/05/24 History Allergies Allergy/AdvReac Type Severity Reaction Status Date / Time aspirin Allergy Unknown Unknown Verified 12/04/24 15:24 latex Allergy Unknown Unknown Verified 12/04/24 15:24 milk Allergy Unknown Unknown Verified 12/04/24 15:24 Sulfa (Sulfonamide Allergy Unknown Unknown Verified 12/04/24 15:24 Antibiotics) Physical Exam Vital signs: Vital Signs Temp 97.0 F 12/05/24 07:34 Pulse 90 12/05/24 08:40 Resp 18 12/05/24 07:34 BP 164/77 H 12/05/24 08:40 Pulse Ox 99 12/05/24 08:40 O2 Del Method Room Air 12/05/24 07:34 Intake & Output 12/04/24 12/05/24 12/05/24 18:59 06:59 18:59 Intake Total 1200 / 1200 Balance 1200 / 1200 Intake: Intake, Oral Amount 200 / 200 Intake, IV Amount 1000 / 1000 0.9 % Sodium Chloride 1,000 ml 1000 / 1000 @ 999 mls/hr IVCONT .Q1H1M ONE Rx#:[id number] Other: Last Bowel Movement 12/02/24 Weight 86.183 kg Weight 86.183 kg - Constitutional Present: no acute distress - Routine HEENT Exam Head: Present: normal inspection Eye: Present: EOMI, PERRL - Routine Neck Exam Present: supple, thyromegaly, trachea midline. Absent: swelling - Routine Respiratory Exam Present: CTAB. Absent: accessory muscle use, stridor, wheezes - Routine Cardiovascular Exam Cardiovascular: Present: S1, S2 - Routine Abdominal Exam Present: soft - Routine Extremities Exam Comments: Swelling of right ankle, soft tissue mass palpable - Routine Skin Exam Present: intact - Routine Neurological Exam Present: alert, oriented X3 Hem/Onc Consult Result - Labs CBC & Chem 7: 12/05/24 05:44 12/05/24 05:44 Labs: Short CBC 12/04/24 12/05/24 Range/Units 16:21 05:44 WBC 7.6 7.5 (4.8-10.8) X10*3/uL Hgb 13.7 12.4 (12.0-16.0) g/dl Hct 42.2 38.3 (37.0-47.0) % Plt Count 176 166 (160-400) X10*3/uL BMP 12/04/24 12/05/24 16:21 05:44 Sodium 140 140 Potassium 4.1 4.4 Chloride 104 106 Carbon Dioxide 28 26 BUN 14 12 Creatinine 0.70 0.70 Calcium 10.5 H 9.9 Liver Function 12/04/24 Range/Units 16:21 Total Bilirubin 0.4 (0.0-1.0) mg/dL Direct Bilirubin 0.2 (0.0-0.5) mg/dL AST 29 (5-31) U/L ALT 14 (0-31) U/L Alkaline Phosphatase 115 (39-117) U/L Albumin 4.7 (3.5-5.0) g/dL Urine 12/04/24 Range/Units 18:15 Urine Color Yellow Urine Appearance Clear Urine pH 7.0 (5.0-9.0) Ur Specific [place] 1.020 (1.005-1.025) Urine Protein Trace (Neg-Trace) mg/dL Urine Glucose (UA) Negative (Negative) mg/dL Assessment and Plan Patient Active problem list reviewed?: Yes (1) Metastatic cancer Status: Acute Assessment and plan: 1. This is a pleasant 74-year-old woman with no significant past history who is presenting with right neck pain and right-sided facial numbness. Imaging with CTA of head and neck revealed a lytic lesion at C2 consistent with metastatic disease. Pathological fracture of C2, no evidence of cord compromise or instability of spine. CT chest/abdomen and pelvis revealed mass in the left lung measuring 4.8 x 4.9 x 4.4 cm, bilateral pulmonary nodules measuring up to 1 cm. 3.4 cm left adrenal mass, presumed metastatic disease. Mass in the left major fissure also favor metastatic disease. Has a right thyroid nodule meets criteria for dedicated thyroid ultrasound. X-ray of right ankle revealed enlargement of medial cortex of distal tibia with aggressive lucency concerning for neoplasm. Measures 2.1 cm. Venous Doppler of the right ankle revealed abnormal soft tissue medial to the right ankle with complex solid and cystic components measuring 4.5 x 3.8 x 2.6 cm by ultrasound. I discussed above findings with the patient. Unclear as to primary for different etiologies including lung, adrenal and thyroid are in the differential diagnosis. Ideally, bronchoscopy and biopsy of lung lesion would be preferred but because of the C2 vertebral lesion intubation would be risky. Least invasive would be to biopsy the ankle lesion in the right leg. If that is inconclusive CT-guided biopsy of lung nodule could be performed. Have added LDH and CEA level. Above plan discussed with the hospitalist. Thank you for the consult, will follow with you. - Time Spent With Patient Time Spent with Patient (in minutes): 30
[2024-12-05] MEDS: Celecoxib 200 MG CAPSULE PO (12:02)
[2024-12-05] MEDS: Omeprazole 20 MG CAPSULE.DR PO (12:02)
--- NOTE | 2024-12-05 14:13 | MHC.CM.PN ---
PT LIVES W/ THEY HAD NO PREVIOUS SERVIES PT AND SPOUSE ASKED QUESTIONS ABOUT HSOPICE THEY WILL SPEAK TO MD PRIOR TO MALKING A DECISON ABOUT SAME
--- NOTE | 2024-12-05 14:39 | P.PNIM_ITS ---
Subjective Subjective Date of Service: 12/05/24 Interval History: The patient was seen and evaluated this morning and afternoon reporting neck pain , neurologically intact discussed CT scan results with her and her No other events Review of Systems Review of Systems: Yes all other systems are reviewed and are negative Physical Exam 2 Vital Signs: Vital Signs: Last Vital Signs Temp 97.0 F 12/05/24 07:34 Pulse 90 12/05/24 08:40 Resp 18 12/05/24 07:34 BP 164/77 H 12/05/24 08:40 Pulse Ox 99 12/05/24 08:40 O2 Del Method Room Air 12/05/24 07:34 BMI result Body Mass Index 29.8 Const: Other: Constitutional : interactive, not in distress Cardiovascular : no JVP, mild Right lower extremity edema Respiratory : bilateral chest movement, not in resp distress Gastrointestinal: soft, lax, Non tender Skin : Warm, Dry Neurological : Alert & oriented , No focal deficit , neck in collar, moving extremities, CN2-12 intact Objective Data Active Medications Acetaminophen (Acetaminophen 325 Mg Tablet) 650 mg PO Q6H PRN PRN Reason: Pain, Mild 1-3,fever,headache Ascorbic Acid (Ascorbic Acid 500 Mg Tablet) 1,000 mg PO [facility] Calcium Carbonate (Calcium Carbonate 750 Mg Tab.Chew) 750 mg PO Q4H PRN PRN Reason: Heartburn Celecoxib (Celecoxib 200 Mg Capsule) 200 mg PO DAILY [facility] Last Admin: 12/05/24 12:02 Dose: 200 mg Documented By: SANDRA Enoxaparin Sodium (Enoxaparin Sodium 40 Mg/0.4 Ml Syringe) 40 mg SUBCUT Q24H [facility] Last Admin: 12/04/24 23:24 Dose: Not Given Documented By: YESENIA Non-Admin Reason: Patient Refused Magnesium Hydroxide (Milk Of Magnesia 30 Ml Oral.Susp) 30 ml PO DAILY PRN PRN Reason: Constipation Meclizine HCl (Meclizine Hcl 25 Mg Tablet) 25 mg PO DAILY PRN PRN Reason: veritgo Melatonin (Melatonin 3 Mg Tablet) 6 mg PO BEDTIME PRN PRN Reason: Insomnia Morphine Sulfate (Morphine Sulfate 4 Mg/Ml Cartridge) 4 mg IVPUSH Q4H PRN; Protocol PRN Reason: Pain, Severe (Pain Scale 7-10) Last Admin: 12/05/24 12:02 Dose: 4 mg Documented By: SANDRA Omeprazole (Omeprazole 20 Mg Capsule.) 20 mg PO DAILY@0630 [facility] Last Admin: 12/05/24 12:02 Dose: 20 mg Documented By: SANDRA Ondansetron HCl (Ondansetron Hcl 4 Mg/2 Ml Vial) 4 mg IVPUSH Q8H PRN PRN Reason: Nausea and Vomiting Last Admin: 12/05/24 10:21 Dose: 4 mg Documented By: SANDRA Sodium Chloride (0.9 % Sodium Chloride Flush 3 Ml Syringe) 3 ml IVFLUSH QSHIFT [facility] Last Admin: 12/05/24 08:53 Dose: 3 ml Documented By: SANDRA Vitamin D (Cholecalciferol (Vitamin D3) 25 Mcg Tablet) 50 mcg PO DAILY [facility] Labs 12/05/24 05:44 12/05/24 05:44 Labs: Laboratory Results - last 24 hr 12/04/24 12/04/24 12/05/24 16:21 18:15 05:44 MCV 91.3 91.8 MCH 29.7 29.7 MCHC 32.5 32.4 RDW 12.7 12.7 Plt Count 176 166 MPV 9.6 10.4 Immature Gran % (Auto) 0.3 0.3 Neut % (Auto) 93.6 H 85.4 H Lymph % (Auto) 4.5 L 8.8 L Clark % (Auto) 1.4 L 5.0 Eos % (Auto) 0.1 0.1 Baso % (Auto) 0.1 0.4 Lymph # (Auto) 0.3 L 0.7 L Clark # (Auto) 0.1 0.4 Eos # (Auto) 0.0 0.0 Baso # (Auto) 0.0 0.0 Abs Immat Gran (auto) 0.02 0.02 Absolute Neuts (auto) 7.1 6.4 Absolute Nucleated RBC 0.000 0.000 Nucleated RBC % (auto) 0.0 0.0 Smear Tech's Comments VERIFIED ESR 17 PT 11.6 INR 1.0 Anion Gap 12 12 Estim Creat Clear Calc 80.7 80.7 Estimated GFR > 60 > 60 Random Glucose 124 H 102 Calcium 10.5 H 9.9 Magnesium 1.9 Total Bilirubin 0.4 Direct Bilirubin 0.2 AST 29 ALT 14 Alkaline Phosphatase 115 C-Reactive Protein 1.31 H Total Protein 8.2 H Albumin 4.7 Lipase 10 Urine Color Yellow Urine Appearance Clear Urine pH 7.0 Ur Specific [place] 1.020 Urine Protein Trace Urine Glucose (UA) Negative Urine Ketones 15 Urine Blood Trace H Urine Nitrite Negative Ur Leukocyte Esterase Trace H Urine RBC 6-10 H Urine WBC 0-5 Ur Squamous Epith Cells 0-2 Urine Bacteria None Seen Hyaline Casts 0-2 Influenza Type A (PCR) NEGATIVE Influenza Type B (PCR) NEGATIVE RSV RNA Qual (PCR) NEGATIVE SARS-CoV-2 RNA (RT-PCR) NEGATIVE Assessment and Plan (1) Lymphadenopathy: Status: Acute (2) Nausea & vomiting: Status: Acute (3) Metastatic cancer: Status: Acute (4) C2 cervical fracture: Status: Acute Plan Patient is a 74-year-old female with a past medical history significant for vertigo, who presented to the ED due to right-sided head/neck pain as well as right-sided facial numbness starting yesterday. W/u consistent with new finding of metastatic cancer, unknown etiology, possibly liposarcoma. Neck pain from lesion on C2 and fracture. [facility] neurosurgery contacted regarding fx and transfer declined, no surgical intervention recommended. neck pain secondary to C2 fx from metastatic cancer of unknown origin CTA head and neck with lytic lesion at C2 with pathologic fracture extending to the right transverse foramen with associated narrowing and contour abnormality of the right vertebral artery, thyroid nodule Discussed with neurosurgery by ED and confirmed with dr Rossi who thinks the fracture is stable and no need for urgent intervention Collar placed when out of the bed Pain control with tylenol, Narcotics as needed PT\OT Will likely need outpatient radiation therapy once pathology reported Metastatic cancer of uknown origin Chest CT with 4.9 cm fat attenuation mass centered upon the left major fissure within bilateral fat attenuation pulmonary nodules measuring up to [address] showing 3.3 cm lesion of the left adrenal gland, presumed malignant, primary versus metastatic disease. No evidence of renal cell carcinoma. right ankle x-ray due to lump with enlargement of the aggressive lucency at the medial cortex of the distal tibia concerning for neoplasm oncology consult, to get pathology , cancer markers To go for distal Tibia first as no bronch can be done and IR hesitant to do lung biopsy Thyroid nodule check TSH follow as OP full code VTE prophy: lovenox Patient with new diagnosis of metastatic cancer with unknown origin and intractable pain and C2 fracture, requiring overnight hospital stay for pain management and completing work up with biopsy Quality Stroke Does the patient have a stroke diagnosis?: No VTE Prior VTE?: No VTE Risk Level:: Medical - moderate - high VTE Device Contraindication: Treatment Not Indicated VTE Drug Contraindication: N/A - Med Ordered
[2024-12-05 14:55] LABS: Lactate Dehydrogenase 471 U/L (122-220)
[2024-12-05 15:11] LABS: Carcinoembryonic Antigen < 1.73 ng/mL
[2024-12-05] MEDS: Acetaminophen 325 MG TABLET 975 MG PO ×2 (15:15→20:52)
--- NOTE | 2024-12-05 15:59 | P.CONPL_ITS ---
History of Present Illness History of Present Illness Consult date: 12/05/24 Chief complaint: Metastatic disease Narrative: 74-year-old lady nonsmoker with underlying history of IBS, PVD, vertigo admitted on 12/04/2024 with right-sided neck/had pain and facial numbness. Initial ER workup showed pathologic C2 fracture. Patient has been placed in cervical collar. Further workup revealed adrenal, pulmonary, and neck lesions suspicious for metastatic disease. Pulmonary evaluation for biopsy planning was requested. Review of Systems 2 Constitutional: Constitutional: Denies daytime sleepiness, Denies excessive sweating, Denies fatigue, Denies fever(s), Denies lethargy, Denies malaise, Denies night sweats, Denies snoring and Denies weight loss Eyes: Eyes: Denies blurry vision and Denies itchy eyes ENT: Denies nasal congestion, Reports neck pain, Denies post nasal drip, Denies sinus pain, Denies sinus pressure and Denies other ( Thrush) Cardiovascular: Cardiovascular: Denies chest pain, Denies pedal edema, Denies dyspnea, Denies orthopnea and Denies paroxysmal nocturnal dyspnea Respiratory: Respiratory: Denies cough, Denies hemoptysis, Denies excessive phlegm production, Denies dyspnea, Denies snoring and Denies wheezing Gastrointestinal: Gastrointestinal: Denies abdominal pain and Denies heartburn Musculoskeletal: Musculoskeletal: Denies myalgias, Denies arthralgias, Denies joint swelling and Reports neck pain Integumentary/Breasts: Skin/Breast: Denies rash Neurologic: Denies memory loss and Denies seizure-like activity Psychiatric: Psychiatric: Denies abnormal sleep pattern, Denies anxiety and Denies memory loss Endocrine: Endocrine: Denies excessive sweating, Denies fatigue and Denies heat intolerance Hematologic/Lymphatic: Hematologic/Lymphatic: Denies easy bruising Allergic/Immunologic: Allergic/Immunologic: Denies itchy eyes, Denies seasonal rhinorrhea and Denies wheezing PMFSH Past Medical History Medical History Breast cancer screening by mammogram Localized osteoarthritis of right knee Colon cancer screening Diarrhea Screening for diabetes mellitus Positive colorectal cancer screening using Cologuard test Knee pain, right Plantar fascia syndrome Colonoscopy refused Right hand paresthesia Shingles Collagen vascular disease Myxomatous mitral valve Ulnar nerve palsy Leukopenia GERD (gastroesophageal reflux disease) Thrombocytopenia Osteoarthritis Family History Family History Father Emphysema of lung Diabetes Mother Hypertension CVD (cardiovascular disease) Maternal Grandfather Esophageal cancer Maternal Uncle Esophageal cancer Lung cancer Sister No problems noted. Surgical History Surgical History H/O eye surgery Hx of esophagogastroduodenoscopy Hx of colonoscopy Deficient knowledge of leg surgery History of thoracotomy History of cataract surgery History of tubal ligation History of tonsillectomy History of appendectomy Social History Social History Household Members: Spouse Housing: House Do you presently have visiting nurse or other home services: No Alcohol intake: current Alcohol intake frequency: holidays/special occasions only Alcohol type: wine Comment: once Q 2 month 1 glass Patient Tobacco Use Status: Never used Tobacco e-Cigarette/Vaping Use: Never Used Second Hand Smoke Exposure: No Advance Directives Date on File: 07/22/20 service: No Current occupational status: retired Cognitive needs: No Hearing needs: No Vision needs: No Meds Allergies Allergy/AdvReac Type Severity Reaction Status Date / Time aspirin Allergy Unknown Unknown Verified 12/04/24 15:24 latex Allergy Unknown Unknown Verified 12/04/24 15:24 milk Allergy Unknown Unknown Verified 12/04/24 15:24 Sulfa (Sulfonamide Allergy Unknown Unknown Verified 12/04/24 15:24 Antibiotics) Active Medications: Current Medications Acetaminophen (Acetaminophen 325 Mg Tablet) 650 mg PO Q6H PRN PRN Reason: Pain, Mild 1-3,fever,headache Acetaminophen (Acetaminophen 325 Mg Tablet) 975 mg PO TID [facility] Last Admin: 12/05/24 15:15 Dose: 975 mg Ascorbic Acid (Ascorbic Acid 500 Mg Tablet) 1,000 mg PO TUTHSA [facility] Calcium Carbonate (Calcium Carbonate 750 Mg Tab.Chew) 750 mg PO Q4H PRN PRN Reason: Heartburn Celecoxib (Celecoxib 200 Mg Capsule) 200 mg PO DAILY [facility] Last Admin: 12/05/24 12:02 Dose: 200 mg Enoxaparin Sodium (Enoxaparin Sodium 40 Mg/0.4 Ml Syringe) 40 mg SUBCUT Q24H [facility] Last Admin: 12/04/24 23:24 Dose: Not Given Magnesium Hydroxide (Milk Of Magnesia 30 Ml Oral.Susp) 30 ml PO DAILY PRN PRN Reason: Constipation Meclizine HCl (Meclizine Hcl 25 Mg Tablet) 25 mg PO DAILY PRN PRN Reason: veritgo Melatonin (Melatonin 3 Mg Tablet) 6 mg PO BEDTIME PRN PRN Reason: Insomnia Morphine Sulfate (Morphine Sulfate 4 Mg/Ml Cartridge) 4 mg IVPUSH Q4H PRN; Protocol PRN Reason: Pain, Severe (Pain Scale 7-10) Last Admin: 12/05/24 12:02 Dose: 4 mg Omeprazole (Omeprazole 20 Mg Capsule.Dr) 20 mg PO DAILY@0630 [facility] Last Admin: 12/05/24 12:02 Dose: 20 mg Ondansetron HCl (Ondansetron Hcl 4 Mg/2 Ml Vial) 4 mg IVPUSH Q8H PRN PRN Reason: Nausea and Vomiting Last Admin: 12/05/24 10:21 Dose: 4 mg Oxycodone HCl (Oxycodone Hcl Immed Release 5 Mg Tablet) 5 mg PO Q6H PRN PRN Reason: Pain, Moderate(Pain Scale 4-6) Sodium Chloride (0.9 % Sodium Chloride Flush 3 Ml Syringe) 3 ml IVFLUSH QSHIFT [facility] Last Admin: 12/05/24 15:16 Dose: 3 ml Vitamin D (Cholecalciferol (Vitamin D3) 25 Mcg Tablet) 50 mcg PO DAILY [facility] Home Medications ?Medication ?Instructions ?Recorded ?Confirmed ?Last Taken ?Type cholecalciferol (vitamin D3) 50 50 mcg PO DAILY 12/08/21 12/05/24 12/03/24 History mcg (2,000 unit) capsule calcium carbonate [Calcium 500] 600 mg PO DAILY 07/18/23 12/05/24 12/03/24 History ascorbic acid (vitamin C) 1,000 mg 1 g PO TUTHSA 06/28/24 12/05/24 12/03/24 History tablet meclizine 25 mg tablet 25 mg PO DAILY PRN veritgo 06/28/24 12/05/24 12/03/24 History omeprazole 20 mg capsule,delayed 20 mg PO DAILY 06/28/24 12/05/24 12/03/24 History release potassium gluconate 500 mg (83 mg) 500 mg PO MOWEFR 06/28/24 12/05/24 12/03/24 History tablet phenylephrine HCl 5 mg tablet 10 mg PO Q4-6H PRN Allergies 10/23/24 12/05/24 12/03/24 History Physical Exam 2 Vital Signs: Vital Signs: Last Vital Signs Temp 98.1 F 12/05/24 15:21 Pulse 93 12/05/24 15:21 Resp 20 12/05/24 15:21 BP 135/72 12/05/24 15:21 Pulse Ox 98 12/05/24 15:21 O2 Del Method Room Air 12/05/24 15:21 BMI result Body Mass Index 29.8 Const: General: no acute distress and alert Nutritional Appearance: not obese Orientation/consciousness: Other orientation findings ( oriented) HEENT: Head: Yes atraumatic Eyes: General: appearance normal, both eyes and all related structures S clerae: sclerae normal EOM: EOMs intact bilaterally Neck: Neck: Yes supple Lymphatic: no lymphadenopathy noted Resp: Effort & Inspection: normal respiratory effort and no use of accessory muscles Auscultation: clear to auscultation bilaterally Cardio: Rate: regular rate Rhythm: regular rhythm Heart sounds: no gallops, no murmurs and no rubs Skin: General skin exam: other ( warm) Extrem: General: No clubbing, No cyanosis and No edema Results Laboratory Findings 12/05/24 05:44 12/05/24 05:44 ABG, PT/INR, D-dimer: PT/INR, D-dimer PT 11.6 SEC (10.9-12.4) 12/04/24 16:21 INR 1.0 (0.9-1.1) 12/04/24 16:21 Abnormal lab findings: Abnormal Labs 12/04/24 12/04/24 12/04/24 16:21 18:15 18:47 RBC Neut % (Auto) 93.6 H Lymph % (Auto) 4.5 L Lucas % (Auto) 1.4 L Lymph # (Auto) 0.3 L Random Glucose 124 H Calcium 10.5 H Lactate Dehydrogenase Troponin I High Sens 19.4 H 30.5 H D C-Reactive Protein 1.31 H Total Protein 8.2 H Urine Blood Trace H Ur Leukocyte Esterase Trace H Urine RBC 6-10 H 12/05/24 05:44 RBC 4.17 L Neut % (Auto) 85.4 H Lymph % (Auto) 8.8 L Lucas % (Auto) Lymph # (Auto) 0.7 L Random Glucose Calcium Lactate Dehydrogenase 471 H Troponin I High Sens C-Reactive Protein Total Protein Urine Blood Ur Leukocyte Esterase Urine RBC Assessment and Plan (1) Metastatic cancer: Status: Acute (2) Pulmonary mass: Status: Acute Plan Impression: 74-year-old lady with metastatic disease of unknown primary complicated by what appears to be a pathological C2 fracture being evaluated for appropriate biopsy site. Patient appears to be a poor candidate for general anesthesia secondary to underlying C2 lesion. Her CT chest does demonstrate left-sided pulmonary mass that will likely be amenable to transthoracic biopsy. Also, she does have a neck lesion which may, may not represent the same process that can be amenable to ultrasound-guided biopsy. Recommendations: At this time would recommend against bronchoscopic biopsy as this would require general anesthesia and patient is a poor candidate general anesthesia at this time. Would consider transthoracic IR guided biopsy of a pulmonary lesion or ultrasound-guided biopsy of the neck lesion. Procedures Date of Service Date of Service: 12/05/24
[2024-12-06] MEDS: Omeprazole 20 MG CAPSULE.DR PO (05:40)
[2024-12-06 07:19] VITALS: BP 134/85; PULSE 93; RESP 16; TEMP 36.9; O2SAT 98
[2024-12-06 07:58] LABS: MANUAL DIFF FLAG NO
[2024-12-06 08:05] LABS: Basophils Percent Auto 0.5 % (0-2); Eosinophils Absolute Auto 0.1 X10*3/uL (0.0-0.4); Eosinophils Percent Auto 0.8 % (0-4); Hematocrit 38.1 % (37.0-47.0); Hemoglobin 12.7 g/dl (12.0-16.0); Imm Gran Abs Auto 0.03 X10*3/uL (0.00-0.03); Imm Gran Pct Auto 0.5 % (0.0-0.4); Lymphocytes Percent Auto 15.5 % (20-40); Mean Corpuscular HGB Conc 33.3 g/dl (31.0-35.0); Mean Corpuscular Hemoglobin 30.3 pg (27.0-33.0); Mean Corpuscular Volume 90.9 fL (80.0-98.0); Mean Platelet Volume 10.2 fL (9.4-12.3); Monocytes Absolute Auto 0.5 X10*3/uL (0.1-1.2); Monocytes Percent Auto 6.9 % (2-11); Neutrophils Absolute Auto 4.9 x10*3/uL (2.0-8.3); Neutrophils Percent Auto 75.8 % (45-73); Platelet Count 169 X10*3/uL (160-400); Red Blood Count 4.19 X10*6/uL (4.20-5.50); Red Cell Distribution Width 12.8 % (11.0-16.0); White Blood Count 6.5 X10*3/uL (4.8-10.8)
[2024-12-06] MEDS: Cholecalciferol (Vitamin D3) 25 MCG TABLET 50 MCG PO (08:13)
[2024-12-06] MEDS: Celecoxib 200 MG CAPSULE PO (08:13)
[2024-12-06] MEDS: Acetaminophen 325 MG TABLET 975 MG PO ×3 (08:14→21:27)
[2024-12-06] MEDS: 0.9 % Sodium Chloride Flush 3 ML SYRINGE IVFLUSH ×3 (08:14→21:27)
[2024-12-06 08:18] LABS: Anion Gap 13 (12-20); Blood Urea Nitrogen 14 mg/dL (9-16); Calcium 9.9 mg/dL (8.4-10.2); Carbon Dioxide 26 mmol/L (22-29); Chloride 104 mmol/L (96-108); Creatinine Clr Calc Pharmacy 75.3; Estimated Glomerular Filt Rate > 60; Glucose Random 87 mg/dL (60-115); Sodium 139 mmol/L (135-145)
[2024-12-06 09:28] VITALS: BP 134/85; PULSE 93; O2SAT 98
--- NOTE | 2024-12-06 11:48 | HO.PM.IMPN ---
Subjective Subjective Date of Service: 12/06/24 Interval History: The patient was seen and evaluated this morning and afternoon reporting neck pain while in collar, neurologically intact NPO for possible Biopsy today No other events Review of Systems Review of Systems: Yes all other systems are reviewed and are negative Physical Exam Vital Signs: Vital Signs: Last Vital Signs Temp 98.4 F 12/06/24 07:19 Pulse 93 12/06/24 09:28 Resp 16 12/06/24 07:19 BP 134/85 12/06/24 09:28 Pulse Ox 98 12/06/24 09:28 O2 Del Method Room Air 12/06/24 07:19 BMI result Body Mass Index 29.8 Const: Other: Constitutional : interactive, not in distress Cardiovascular : no JVP, mild Right lower extremity edema Respiratory : bilateral chest movement, not in resp distress Gastrointestinal: soft, lax, Non tender Skin : Warm, Dry Neurological : Alert & oriented , No focal deficit , neck in collar, moving extremities, CN2-12 intact Objective Data Active Medications Acetaminophen (Acetaminophen 325 Mg Tablet) 650 mg PO Q6H PRN PRN Reason: Pain, Mild 1-3,fever,headache Acetaminophen (Acetaminophen 325 Mg Tablet) 975 mg PO TID [facility] Last Admin: 12/06/24 08:14 Dose: 975 mg Documented By: DANTE Ascorbic Acid (Ascorbic Acid 500 Mg Tablet) 1,000 mg PO TUTA [facility] Calcium Carbonate (Calcium Carbonate 750 Mg Tab.Chew) 750 mg PO Q4H PRN PRN Reason: Heartburn Celecoxib (Celecoxib 200 Mg Capsule) 200 mg PO DAILY [facility] Last Admin: 12/06/24 08:13 Dose: 200 mg Documented By: DANTE Enoxaparin Sodium (Enoxaparin Sodium 40 Mg/0.4 Ml Syringe) 40 mg SUBCUT Q24H [facility] Last Admin: 12/04/24 23:24 Dose: Not Given Documented By: YESENIA Non-Admin Reason: Patient Refused Magnesium Hydroxide (Milk Of Magnesia 30 Ml Oral.Susp) 30 ml PO DAILY PRN PRN Reason: Constipation Meclizine HCl (Meclizine Hcl 25 Mg Tablet) 25 mg PO DAILY PRN PRN Reason: veritgo Melatonin (Melatonin 3 Mg Tablet) 6 mg PO BEDTIME PRN PRN Reason: Insomnia Morphine Sulfate (Morphine Sulfate 4 Mg/Ml Cartridge) 4 mg IVPUSH Q4H PRN; Protocol PRN Reason: Pain, Severe (Pain Scale 7-10) Last Admin: 12/05/24 12:02 Dose: 4 mg Documented By: SANDRA Omeprazole (Omeprazole 20 Mg Capsule.Dr) 20 mg PO DAILY@0630 [facility] Last Admin: 12/06/24 05:40 Dose: 20 mg Documented By: SIMONE Ondansetron HCl (Ondansetron Hcl 4 Mg/2 Ml Vial) 4 mg IVPUSH Q8H PRN PRN Reason: Nausea and Vomiting Last Admin: 12/05/24 10:21 Dose: 4 mg Documented By: SANDRA Oxycodone HCl (Oxycodone Hcl Immed Release 5 Mg Tablet) 5 mg PO Q6H PRN PRN Reason: Pain, Moderate(Pain Scale 4-6) Sodium Chloride (0.9 % Sodium Chloride Flush 3 Ml Syringe) 3 ml IVFLUSH QSHIFT [facility] Last Admin: 12/06/24 08:14 Dose: 3 ml Documented By: DANTE Vitamin D (Cholecalciferol (Vitamin D3) 25 Mcg Tablet) 50 mcg PO DAILY [facility] Last Admin: 12/06/24 08:13 Dose: 50 mcg Documented By: DANTE Labs 12/06/24 06:38 12/06/24 06:38 Labs: Laboratory Results - last 24 hr 12/05/24 12/06/24 05:44 06:38 MCV 90.9 MCH 30.3 MCHC 33.3 RDW 12.8 Plt Count 169 MPV 10.2 Immature Gran % (Auto) 0.5 H Neut % (Auto) 75.8 H Lymph % (Auto) 15.5 L [place] % (Auto) 6.9 Eos % (Auto) 0.8 Baso % (Auto) 0.5 Lymph # (Auto) 1.0 L [place] # (Auto) 0.5 Eos # (Auto) 0.1 Baso # (Auto) 0.0 Abs Immat Gran (auto) 0.03 Absolute Neuts (auto) 4.9 Absolute Nucleated RBC 0.000 Nucleated RBC % (auto) 0.0 Anion Gap 13 Estim Creat Clear Calc 75.3 Estimated GFR > 60 Random Glucose 87 Calcium 9.9 Lactate Dehydrogenase 471 H Carcinoembryonic Ag < 1.73 Assessment and Plan (1) Pulmonary mass: Status: Acute (2) Lymphadenopathy: Status: Acute (3) Metastatic cancer: Status: Acute (4) C2 cervical fracture: Status: Acute Plan Patient is a 74-year-old female with a past medical history significant for vertigo, who presented to the ED due to right-sided head/neck pain as well as right-sided facial numbness starting yesterday. W/u consistent with new finding of metastatic cancer, unknown etiology, possibly liposarcoma. Neck pain from lesion on C2 and fracture. [facility] neurosurgery contacted regarding fx and transfer declined, no surgical intervention recommended. neck pain secondary to C2 fx from metastatic cancer of unknown origin CTA head and neck with lytic lesion at C2 with pathologic fracture extending to the right transverse foramen with associated narrowing and contour abnormality of the right vertebral artery, thyroid nodule Discussed with neurosurgery by ED and confirmed with dr Rossi who thinks the fracture is stable and no need for urgent intervention Collar placed when out of the bed Pain control with tylenol, Narcotics as needed PT\OT Will likely need outpatient radiation therapy once pathology reported Metastatic cancer of uknown origin Chest CT with 4.9 cm fat attenuation mass centered upon the left major fissure within bilateral fat attenuation pulmonary nodules measuring up to [address] showing 3.3 cm lesion of the left adrenal gland, presumed malignant, primary versus metastatic disease. No evidence of renal cell carcinoma. right ankle x-ray due to lump with enlargement of the aggressive lucency at the medial cortex of the distal tibia concerning for neoplasm oncology consult, to get pathology , cancer markers: CEA low , elevated LDH Pulm consult and recommend no bronch can be done and IR hesitant to do lung biopsy To go for distal Tibia today Thyroid nodule check TSH follow as OP full code VTE prophy: lovenox Patient with new diagnosis of metastatic cancer with unknown origin and intractable pain and C2 fracture, requiring overnight hospital stay for pain management and completing work up with biopsy Quality Stroke Does the patient have a stroke diagnosis?: No VTE Prior VTE?: No VTE Risk Level:: Medical - moderate - high VTE Device Contraindication: Treatment Not Indicated VTE Drug Contraindication: N/A - Med Ordered
[2024-12-06] MEDS: Lidocaine HCl 1 % MPF 5 ML VIAL SUBCUT (11:53)
--- NOTE | 2024-12-06 12:13 | PM.PROC ---
Brief Operative Note Date of procedure: 12/06/24 Pre-op diagnosis: Right ankle mass, lung and adrenal mass Post-op diagnosis: same Procedure: US right ankle soft tissue mass Complex right ankle mass- 5 x 18 g cores performed. 20 cc of non clotting blood tinged fluid aspirated from cystic portion of mass and sent for cytology. Anesthesia: local
[2024-12-06] MEDS: Morphine Sulfate 4 MG/ML CARTRIDGE IVPUSH ×2 (12:24→21:27)
[2024-12-06 12:47] LABS: TSH reflex Free T4 1.48 uIU/mL (0.32-4.0)
[2024-12-06] MEDS: Ascorbic Acid 500 MG TABLET 1000 MG PO (13:04)
[2024-12-06 15:15] VITALS: BMI 29.8
[2024-12-06 15:25] VITALS: BP 132/83; PULSE 89; RESP 20; TEMP 36.2; O2SAT 95
[2024-12-07] VITALS: BP 132/60; PULSE 88; RESP 18; TEMP 36; O2SAT 96
[2024-12-07] MEDS: Morphine Sulfate 4 MG/ML CARTRIDGE IVPUSH (05:45)
[2024-12-07] MEDS: Omeprazole 20 MG CAPSULE.DR PO (05:45)
[2024-12-07 05:48] LABS: MANUAL DIFF FLAG NO
[2024-12-07 05:56] LABS: Basophils Absolute Auto 0.1 X10*3/uL (0.0-0.2); Basophils Percent Auto 0.7 % (0-2); Eosinophils Absolute Auto 0.1 X10*3/uL (0.0-0.4); Eosinophils Percent Auto 1.5 % (0-4); Hematocrit 40.6 % (37.0-47.0); Hemoglobin 13.4 g/dl (12.0-16.0); Imm Gran Abs Auto 0.03 X10*3/uL (0.00-0.03); Imm Gran Pct Auto 0.4 % (0.0-0.4); Lymphocytes Absolute Auto 1.8 X10*3/uL (1.2-4.9); Lymphocytes Percent Auto 24.9 % (20-40); Mean Corpuscular Hemoglobin 30.1 pg (27.0-33.0); Mean Corpuscular Volume 91.2 fL (80.0-98.0); Monocytes Absolute Auto 0.6 X10*3/uL (0.1-1.2); Monocytes Percent Auto 8.2 % (2-11); Neutrophils Absolute Auto 4.6 x10*3/uL (2.0-8.3); Neutrophils Percent Auto 64.3 % (45-73); Platelet Count 189 X10*3/uL (160-400); Red Blood Count 4.45 X10*6/uL (4.20-5.50); Red Cell Distribution Width 12.7 % (11.0-16.0); White Blood Count 7.1 X10*3/uL (4.8-10.8)
[2024-12-07 06:10] LABS: Anion Gap 13 (12-20); Blood Urea Nitrogen 17 mg/dL (9-16); Calcium 10.2 mg/dL (8.4-10.2); Carbon Dioxide 28 mmol/L (22-29); Chloride 103 mmol/L (96-108); Creatinine Clr Calc Pharmacy 73.4; Estimated Glomerular Filt Rate > 60; Glucose Random 106 mg/dL (60-115); Potassium 4.2 mmol/L (3.3-5.1); Sodium 140 mmol/L (135-145)
[2024-12-07 08:00] VITALS: BP 137/77; PULSE 86; RESP 18; TEMP 36.3; O2SAT 97
[2024-12-07] MEDS: Celecoxib 200 MG CAPSULE PO (08:48)
[2024-12-07] MEDS: Acetaminophen 325 MG TABLET 975 MG PO ×2 (08:48→16:07)
[2024-12-07] MEDS: 0.9 % Sodium Chloride Flush 3 ML SYRINGE IVFLUSH (08:49)
[2024-12-07] MEDS: Cholecalciferol (Vitamin D3) 25 MCG TABLET 50 MCG PO (08:49)
[2024-12-07] MEDS: Morphine Sulfate ER 15 MG TABLET.ER PO (10:36)
--- NOTE | 2024-12-07 12:11 | MHC.CM.PN ---
Addendum entered by Demetrice Pollard RN 12/07/24 16:29: [facility] has obtained auth. BLS transport scheduled for 6pm. , RN, and patient aware. Original Note: No bed offers from [place]. CM reviewed w/ patient who accepts a STR bed @ [facility]. They have submitted for auth. Medically cleared. CM will continue to follow.
[2024-12-07 13:40] VITALS: BP 137/77; PULSE 86; O2SAT 97
--- NOTE | 2024-12-07 14:41 | MHC.CLN ---
F/U DIET=REGULAR-APPROPRIATE. VARIABLE INTAKE 25-100%. NEW DX METASTATIC CANCER. NO NOTED SKIN ISSUES. FOLLOW FOR INTAKE AND PLAN OF CARE.
[2024-12-07 15:09] VITALS: BP 126/70; PULSE 85; RESP 18; TEMP 36.4; O2SAT 96
--- NOTE | 2024-12-07 17:05 | P.DS_ITS ---
DS: Providers Provider Date of Service: 12/07/24 Date of admission: 12/04/24 22:48 Date of discharge: 12/07/24 Primary care physician: Renata Morrison MD Consults: 12/04/24 22:48 Consult to Hematology / Oncology Routine Consulting Provider: [facility] [place] Reason for consultation: ?metastatic disease 12/05/24 11:10 Consult to Pulmonology Routine Consulting Provider: [facility] [place] Reason for consultation: Lung mass (necrotic) for biopsy DS: Diagnosis Discharge Diagnosis (1) Pulmonary mass: Status: Acute (2) Lymphadenopathy: Status: Acute (3) Metastatic cancer: Status: Acute (4) C2 cervical fracture: Status: Acute DS: Summary Hospital Course Hospital Course: Admission note HPI Patient is a 74-year-old female with a past medical history significant for vertigo, who presented to the ED due to right-sided head/neck pain as well as right-sided facial numbness starting yesterday. The pain has been persistent for the past 2 months. She reports that this has been causing dizziness and vomiting triggering her vertigo. She denies any additional symptoms including runny nose, congestion, cough, shortness of breath, abdominal pain, urinary frequency, urgency or hematuria. Hospital course The patient was evaluated and treated for the following: # Neck pain secondary to C2 fracture from metastatic cancer of unknown origin CTA head and neck showed lytic lesion at C2 with pathologic fracture extending to the right transverse foramen with associated narrowing and contour abnormality of the right vertebral artery, thyroid nodule Discussed with neurosurgery by ED and confirmed with dr Rossi who thinks the fracture is stable and no need for urgent intervention suggested Collar placed when out of the bed. The patient feels more comfortable keeping it at bedtime as well. long-term plan of radiation therapy to be arranged by Oncology clinic once evaluation is done. For Pain control with tylenol, Narcotics as needed. Oxycodone and long acting morphine used with fair response. she will need laxative as she became constipated. PT\OT evaluated the patient and recommended short term rehab for now. # Metastatic cancer of uknown origin Chest CT with 4.9 cm fat attenuation mass centered upon the left major fissure within bilateral fat attenuation pulmonary nodules measuring up to [address] showing 3.3 cm lesion of the left adrenal gland, presumed malignant, primary versus metastatic disease. No evidence of renal cell carcinoma. right ankle x-ray due to lump with enlargement of the aggressive lucency at the medial cortex of the distal tibia concerning for neoplasm. The lump was biopsied on 12/06/24 and prelim report showing malignant cells. To be followed by dr Brownlee for final result and follow up planning in the office. # Noted also to have Thyroid nodule with normal TSH. To be followed as OP # Lymphedema. US negative for DVT. plan to follow with Vascular surgery as outpatient. Discharge plan Take Morphine long acting for pain twice a day. Oxycodone as needed Zofran for nausea Colace and Miralax to help with constipation Follow with Oncology as outpatient Start physical therapy as tolerated Time Attestation Discharge Coordination Time (in mins): 43 Quality: Safe Use of Opioids Does Pt have an Active Cancer Diagnosis on the Problem List?: Yes Opioid Measure Date for [facility] Report: 11/07/24 Opioid Measure Time for [facility] Report: 17:12 Quality: Stroke Does the patient have a stroke diagnosis?: No Physical Exam Vital Signs: Vital Signs: Last Vital Signs Temp 97.6 F 12/07/24 15:09 Pulse 85 12/07/24 15:09 Resp 18 12/07/24 15:09 BP 126/70 12/07/24 15:09 Pulse Ox 96 12/07/24 15:09 O2 Del Method Room Air 12/07/24 15:09 BMI result Body Mass Index 29.8 Const: Other: Constitutional : interactive, not in distress Cardiovascular : no JVP, mild Right lower extremity edema Respiratory : bilateral chest movement, not in resp distress Gastrointestinal: soft, lax, Non tender Skin : Warm, Dry Neurological : Alert & oriented , No focal deficit , neck in collar, moving extremities, CN2-12 intact DS: Data Data Completed and Pending Pending studies at discharge: Pending at discharge 12/06/24 12:11 Surgical Path [Surgical] [PTH] Routine Cytology [PTH] Routine Labs on day of discharge: Laboratory Results - last 24 hr 12/07/24 05:28 WBC 7.1 RBC 4.45 Hgb 13.4 Hct 40.6 MCV 91.2 MCH 30.1 MCHC 33.0 RDW 12.7 Plt Count 189 MPV 10.0 Immature Gran % (Auto) 0.4 Neut % (Auto) 64.3 Lymph % (Auto) 24.9 [place] % (Auto) 8.2 Eos % (Auto) 1.5 Baso % (Auto) 0.7 Lymph # (Auto) 1.8 [place] # (Auto) 0.6 Eos # (Auto) 0.1 Baso # (Auto) 0.1 Abs Immat Gran (auto) 0.03 Absolute Neuts (auto) 4.6 Absolute Nucleated RBC 0.000 Nucleated RBC % (auto) 0.0 Sodium 140 Potassium 4.2 Chloride 103 Carbon Dioxide 28 Anion Gap 13 BUN 17 H Creatinine 0.77 Estim Creat Clear Calc 73.4 Estimated GFR > 60 Random Glucose [address] scan - abdomen: Radiologist's impression: CT ABD Impression: 3.3 cm lesion in the left adrenal gland, presumed malignant. Primary malignancy versus metastatic disease. The differential diagnosis for a primary malignancy of the left adrenal gland with fat containing metastatic lesions includes adrenal cortical carcinoma. No evidence of renal cell carcinoma; the fat plane between the adrenal lesion and the left kidney is lost, however the lesion is favored to originate from the adrenal gland with invasion of the left kidney. Adjacent stranding could be secondary to hemorrhage, edema or extension of malignancy. A liposarcoma is not identified, however may still be considered. Tissue sampling may be helpful to diagnose the primary tumor. Nonemergent workup is recommended. There is a fat attenuation 1.0 cm lesion in the liver which is favored to be metastatic disease. Pulmonary nodules measuring up to 1.0 cm, metastatic disease. Ground-glass opacity at the left lung base could be secondary to edema or infection. This document has been electronically signed by: Michaela Coyne MD on 12/04/2024 21:05:27 CT CHEST Impression: 4.9 cm fat attenuation mass centered upon the left major fissure with bilateral fat attenuation pulmonary nodules measuring up to 1.0 cm. Metastatic disease is favored, such as liposarcoma or renal cell carcinoma. Ground-glass opacity in the left lung adjacent to the mass is favored to be secondary to edema. Developing infection may also be considered. 3.4 cm left adrenal mass, presumed metastatic disease. Surrounding stranding could be secondary to congestion. Hemorrhage can not be excluded. Correlate for signs/symptoms of abdominal pathology and consider further evaluation with abdomen and pelvis CT. Nodule in the thyroid meets size criteria for a dedicated nonemergent thyroid ultrasound. This document has been electronically signed by: Michaela Coyne MD on 12/04/2024 19:09:29 CTA Neck Impression: Lytic lesion in C2, favored to be metastatic disease. Pathologic fracture of C2, detailed above. The fracture line extends into the right transverse foramen. There is associated narrowing and contour abnormality of the right vertebral artery in this region which may indicate stenosis and/or dissection. No aneurysm or occlusion. Mild lobular contour of the vasculature, particularly the right internal carotid artery. This can be seen in the setting of aging, atherosclerotic disease, fibromuscular dysplasia and vasculitis. Nodule in the thyroid meets size criteria for a dedicated nonemergent thyroid ultrasound. This document has been electronically signed by: Michaela Coyne MD on 12/04/2024 18:58:33 US Doppler LE IMPRESSION: 1. Negative for bilateral lower extremity deep vein thrombosis. 2. Please refer to comparison x-rays of the right ankle for concern for neoplasm and aggressive appearing lytic lesion of distal tibia. Soft tissue component measures up to 4.5 cm by ultrasound. This document has been electronically signed by: Se Urbina MD on 12/05/2024 01:46:07 Discharge Plan Discharge Anticipated Discharge Date/Time: 12/07/24 16:36 Patient Disposition: Xfer SNF Discharge Diagnosis: Metastatic cancer of unknown origin Stable C2 fracture Referrals: Prince,Renata Rivas MD [Primary Care Provider] - 1 Week Discharge Medications: New morphine 15 mg Tablet Extended Release 15 mg PO BID Qty: 60 0RF Rx Instructions: Partial Fill upon patient request. oxycodone 5 mg Tablet 5 mg PO Q6H PRN (Reason: Pain, Moderate(Pain Scale 4-6)) Qty: 20 0RF Rx Instructions: Partial Fill upon patient request. ondansetron 4 mg tablet,disintegrating 4 mg PO Q8H PRN (Reason: nausea and vomiting) Qty: 20 0RF polyethylene glycol 3350 [Miralax] 17 gram powder in packet 17 g PO DAILY Qty: 30 0RF docusate sodium [Colace] 100 mg capsule 100 mg PO BID Qty: 60 0RF Continued celecoxib 200 mg capsule 200 mg PO DAILY Qty: 90 2RF omeprazole 20 mg capsule,delayed release(DR/EC) 20 mg PO DAILY Rx Instructions: 4 tunes a week Tuesday, Tuesday, , Tuesday ascorbic acid (vitamin C) 1,000 mg tablet 1 g PO TUTHSA Rx Instructions: 3X A WEEK- Tuesday//Tuesday potassium gluconate 500 mg (83 mg) tablet 500 mg PO Rx Instructions: 3 DATYS A WEEK: Tuesday/Tue/Fridays cholecalciferol (vitamin D3) 50 mcg (2,000 unit) capsule 50 mcg PO DAILY meclizine 25 mg tablet 25 mg PO DAILY PRN (Reason: veritgo) Rx Instructions: Patient takes half a tab PRN calcium carbonate [Calcium 500] 600 mg PO DAILY phenylephrine HCl 5 mg tablet 10 mg PO Q4-6H PRN (Reason: Allergies) Discharge Orders: Discharge Order (Routine); Ordered 12/07/24 Ordered By: Mahad Mcdonald Diet: Advance to usual diet Activity on Discharge: As tolerated Stand Alone Forms: Patient Portal Discharge page Print Language: [place]raini Care Plan Goals: You were found to have metastatic cancer of unknown origin involving lungs, adrenal glands, neck vertebra with associated C2 fracture. You had biopsy of right leg mass. pending pathology report. You were seen by Dr Brownlee from Oncology who will follow with you as outpatient for further management planning. Take Morphine long acting for pain twice a day. Oxycodone as needed Zofran for nausea Colace and Miralax to help with constipation Follow with Oncology as outpatient Start physical therapy as tolerated Health Concerns: Metastatic cancer C2 vertebra fracture Plan of Treatment: Pain medications Oncology follow up with [facility] [place]: Dr Brownlee Assessment: as above
[2024-12-07 18:37] VITALS: BP 145/74; PULSE 85; RESP 16; TEMP 36.4; O2SAT 99
== END 2024-12-07 18:45 | disposition skilled nursing facility (03) | DRG 543 ==
LOC: HO.ED 12-05 00:08 → HO.EDOVER 12-05 00:27 → HO.S3 12-05 01:04
PROVIDERS: Internal Medicine; Physician Assistant Medical; Radiology Vascular & Interventional Radiology; Admitting Provider Student in an Organized Health Care Education/Training Program; Emergency Provider Emergency Medicine; PCP Internal Medicine; Visit Provider Student in an Organized Health Care Education/Training Program
PROC: 0JBQ3ZX Excision of Right Foot Subcutaneous Tissue and Fascia, Percutaneous Approach, Diagnostic (ICD-10-PCS; principal; 2024-12-06 14:00)
DX: M84.58XA Pathological fracture in neoplastic disease, other specified site, initial encounter for fracture (principal); C78.02 Secondary malignant neoplasm of left lung; C79.02 Secondary malignant neoplasm of left kidney and renal pelvis; C79.51 Secondary malignant neoplasm of bone; C79.72 Secondary malignant neoplasm of left adrenal gland; Z20.822 Contact with and (suspected) exposure to COVID-19; Z79.899 Other long term (current) drug therapy
CPT/HCPCS: 0241U; 36415; 38505; 70496; 70498; 71260; 73600; 74177; 76942; 80048; 80076; 81001; 82378; 83615; 83690; 83735; 84443; 84484; 85025; 85610; 85652; 86140; 88173; 88304; 88305; 88341; 88342; 93005; 93970; 97116; 97163; 97167; 97530; 97535; 99285; J2003; J2270; J2405; Q9967

== ENCOUNTER → 2024-12-04 15:30 | Outpatient (BNV) | payer MEDICARE, SELFPAY | PROVIDERS: Admitting Provider Student in an Organized Health Care Education/Training Program; Emergency Provider Emergency Medicine; PCP Internal Medicine; Visit Provider Internal Medicine | DX: R94.31 Abnormal electrocardiogram [ECG] [EKG] (principal); R42 Dizziness and giddiness | CPT/HCPCS: 93010 ==

== ENCOUNTER → 2024-12-04 15:31 | Outpatient (BNV) | payer MEDICARE, SELFPAY | PROVIDERS: Emergency Provider Emergency Medicine; PCP Internal Medicine; Visit Provider Radiology Diagnostic Radiology | DX: E27.9 Disorder of adrenal gland, unspecified (principal); R91.8 Other nonspecific abnormal finding of lung field; R42 Dizziness and giddiness; K76.9 Liver disease, unspecified; M89.8X8 Other specified disorders of bone, other site; M84.48XA Pathological fracture, other site, initial encounter for fracture; E04.1 Nontoxic single thyroid nodule; M89.8X6 Other specified disorders of bone, lower leg | CPT/HCPCS: 70496; 70498; 71260; 73600; 74177 ==

== ENCOUNTER → 2024-12-04 16:12 | Outpatient (BNV) | payer MEDICARE, SELFPAY | PROVIDERS: Emergency Provider Emergency Medicine; PCP Internal Medicine; Visit Provider Physician Assistant | DX: R91.8 Other nonspecific abnormal finding of lung field (principal); R59.1 Generalized enlarged lymph nodes; C79.9 Secondary malignant neoplasm of unspecified site; S12.100A Unspecified displaced fracture of second cervical vertebra, initial encounter for closed fracture | CPT/HCPCS: 99232; 99239 ==

== ENCOUNTER 2024-12-04 22:48 | Outpatient (BNV) | payer MEDICARE, SELFPAY | END 2024-12-06 11:10 | PROVIDERS: Admitting Provider Student in an Organized Health Care Education/Training Program; Emergency Provider Emergency Medicine; PCP Internal Medicine; Visit Provider Physician Assistant Surgical | DX: C49.21 Malignant neoplasm of connective and soft tissue of right lower limb, including hip (principal) | CPT/HCPCS: 38505; 76942 ==

== ENCOUNTER 2024-12-04 22:48 | Outpatient (BNV) | payer MEDICARE, SELFPAY | END 2024-12-05 | PROVIDERS: Admitting Provider Student in an Organized Health Care Education/Training Program; Emergency Provider Emergency Medicine; PCP Internal Medicine; Visit Provider Radiology Neuroradiology | DX: M79.669 Pain in unspecified lower leg (principal); R22.40 Localized swelling, mass and lump, unspecified lower limb | CPT/HCPCS: 93970 ==

== ENCOUNTER → 2024-12-04 22:48 | Outpatient (BNV) | payer MEDICARE, SELFPAY | PROVIDERS: Admitting Provider Student in an Organized Health Care Education/Training Program; Emergency Provider Emergency Medicine; PCP Internal Medicine; Visit Provider Internal Medicine | DX: C74.92 Malignant neoplasm of unspecified part of left adrenal gland (principal); C41.2 Malignant neoplasm of vertebral column; C73 Malignant neoplasm of thyroid gland; M84.48XA Pathological fracture, other site, initial encounter for fracture | CPT/HCPCS: 99222 ==

== ENCOUNTER → 2024-12-04 22:48 | Outpatient (BNV) | payer MEDICARE, SELFPAY | PROVIDERS: Admitting Provider Student in an Organized Health Care Education/Training Program; Emergency Provider Emergency Medicine; PCP Internal Medicine; Visit Provider Internal Medicine Pulmonary Disease | DX: C79.9 Secondary malignant neoplasm of unspecified site (principal); R91.8 Other nonspecific abnormal finding of lung field | CPT/HCPCS: 99222 ==